=== PATIENT | female | born 1950 | race Caucasian/White ===

== ENCOUNTER 2016-06-14 16:30 | Emergency (ER) | payer MEDICARE ==
[2016-06-14] MEDS ORDERED: Ondansetron 4 MG/2 ML SDV IVPUSH ONE (17:05)
[2016-06-14] MEDS ORDERED: Sodium Chloride 0.9% 1,000 ML IV ONE (17:05)
--- NOTE | 2016-06-14 17:05 | EDM.PDOC ---
ED HPI GENERAL MEDICAL PROBLEM - General Chief Complaint: Gastrointestinal Problem Stated Complaint: PT HAS SORES IN MOUTH, DIARRHEA Time Seen by Provider: 06/14/16 17:00 Source of Information: Reports: Patient History Limitations: Reports: No limitations - History of Present Illness INITIAL COMMENTS - FREE TEXT/NARRATIVE: History of present illness: [65-year-old female presenting with complaints of oral sores, nausea, anorexia, as well as now having lesions present on her arms.] Review of systems: As per history of present illness and below otherwise all systems reviewed and negative. Past medical history: As per history of present illness and as reviewed below otherwise noncontributory. Surgical history: As per history of present illness and as reviewed below otherwise noncontributory. Social history: No reported history of drug or alcohol abuse. Family history: As per history of present illness and as reviewed below otherwise noncontributory. Physical exam: HEENT: Atraumatic, normocephalic, pupils reactive, negative for conjunctival pallor or scleral icterus, mucous membranes moist, throat clear, sores and erythema along pickle cavity, neck supple, nontender, trachea midline. Lungs: Clear to auscultation, breath sounds equal bilaterally, chest nontender. Heart: S1S2, regular, negative for clicks, rubs, or JVD. Abdomen: Soft, nondistended, nontender. Negative for masses or hepatosplenomegaly. Negative for costovertebral tenderness. Pelvis: Stable nontender. Genitourinary: Deferred. Rectal: Deferred. Extremities: Atraumatic, negative for cords or calf pain. Neurovascular unremarkable. Neuro: Awake, alert, oriented. Cranial nerves II through XII unremarkable. Cerebellum unremarkable. Motor and sensory unremarkable throughout. Exam nonfocal. Skin: Patient has a very putty, pale colored complexion Diagnostics: [CBC, CMP, CT] Therapeutics: [IV fluid, Zofran] Impression: [Stomatitis, malnutrition] Plan: [Magic mouthwash followup with primary care provider] Definitive disposition and diagnosis as appropriate pending reevaluation and review of above. Generalized Pain Score (Numeric/FACES): 7 - Related Data Allergies Allergy/AdvReac Type Severity Reaction Status Date / Time divalproex sodium Allergy Shaking Verified 06/14/16 16:35 [From Depakote] erythromycin base Allergy Rash Verified 06/14/16 16:35 latex Allergy Blisters Verified 06/14/16 16:35 paroxetine HCl [From Paxil] Allergy Seizure Verified 06/14/16 16:35 Penicillins Allergy Rash Verified 06/14/16 16:35 tolterodine tartrate Allergy Facial Verified 06/14/16 16:35 [From Detrol] Swelling contrast dye Allergy Seizure Uncoded 06/14/16 16:35 Home Meds: Home Meds Alendronate Sodium [Alendronate] 1 tab PO DAILY 04/24/15 [History] FLUoxetine HCl [Fluoxetine HCl] 1 tab PO PCDINNER 04/24/15 [History] [place] Carbonate [Eskalith CR] 1 tab PO PCDINNER 04/24/15 [History] Montelukast [Singulair] 1 tab PO DAILY 04/24/15 [History] Ondansetron [Zofran ODT] 1 tab PO ASDIRECTED PRN 04/24/15 [History] Propranolol [Inderal] 1 tab PO BID 04/24/15 [History] buPROPion [Wellbutrin XL] 1 tab PO DAILY 04/24/15 [History] lamoTRIgine [Lamotrigine] 1 tab PO BEDTIME 04/24/15 [History] risperiDONE [RisperiDAL] 1 tab PO BEDTIME 04/24/15 [History] traZODone 1 tab PO BEDTIME 04/24/15 [History] Diphenhyd/Lidocaine/Nystatin [Magic Mouthwash] 10 ml PO QID #2 bottle 06/14/16 [ Rx] Past Medical History - Past Health History Medical/Surgical History: Denies Medical/Surgical History HEENT History: Reports: Hard of hearing, Impaired vision Other HEENT History: Hard of hearing hear best on Right side Cardiovascular History: Reports: Hypertension Respiratory History: Reports: None Gastrointestinal History: Reports: Gastritis, GERD Other Gastrointestinal History: History of bleeding ulcer, current positive H- pylori test, Heartburn, Epigastric pain Genitourinary History: Reports: None Musculoskeletal History: Reports: None Neurological History: Reports: Migraines Psychiatric History: Reports: Anxiety, Bipolar, Depression Endocrine/Metabolic History: Reports: None Dermatologic History: Reports: None - Infectious Disease History Infectious Disease History: Reports: Chicken pox, Measles - Past Surgical History GI Surgical History: Reports: Bariatric procedure Female Surgical History: Reports: Hysterectomy Musculoskeletal Surgical History: Reports: None Social & Family History - Tobacco Use Smoking Status *Q: Never Smoker Second Hand Smoke Exposure: No - Caffeine Use Caffeine Use: Reports: Soda - Alcohol Use Days Per Week of Alcohol Use: 0 - Recreational Drug Use Recreational Drug Use: No Drug Use in Last 12 Months: No ED ROS GENERAL - Review of Systems Review Of Systems: See Below (See history of present illness) ED EXAM, GENERAL - Physical Exam Exam: See Below (See history of present illness) Course - Vital Signs Last Recorded V/S: Last Vital Signs Temp 36.6 C 06/14/16 19:00 Pulse 66 06/14/16 19:00 Resp 18 06/14/16 19:00 BP 199/94 H 06/14/16 19:00 Pulse Ox 100 06/14/16 19:00 - Orders/Labs/Meds Orders: Active Orders 24 hr Category Date Time Status Abdomen Pelvis wo Cont [CT] Stat Exams 06/14/16 18:08 Taken Labs: Laboratory Tests 06/14/16 06/14/16 Range/Units 17:14 17:14 WBC 5.07 (4.0-11.0) K/uL RBC 4.16 L (4.30-5.90) M/uL Hgb 11.8 L (12.0-16.0) g/dL Hct 36.2 (36.0-46.0) % MCV 87.0 (80.0-98.0) fL MCH 28.4 (27.0-32.0) pg MCHC 32.6 (31.0-37.0) g/dL RDW Std Deviation 40.8 (28.0-62.0) fl RDW Coeff of Steven 13 (11.0-15.0) % Plt Count 204 (150-400) K/uL MPV 10.70 (7.40-12.00) fL Neut % (Auto) 51.4 (48.0-80.0) % Lymph % (Auto) 35.5 (16.0-40.0) % Motley % (Auto) 10.1 (0.0-15.0) % Eos % (Auto) 2.4 (0.0-7.0) % Baso % (Auto) 0.6 (0.0-1.5) % Neut # 2.6 (1.4-5.7) K/uL Lymph # 1.8 (0.6-2.4) K/uL Motley # 0.5 (0.0-0.8) K/uL Eos # 0.1 (0.0-0.7) K/uL Baso # 0.0 (0.0-0.1) K/uL Nucleated RBC % 0.0 /100WBC Nucleated RBCs # 0 K/uL Sodium 142 (136-146) mmol/L Potassium 3.2 L (3.5-5.1) mmol/L Chloride 111 H (98-110) mmol/L Carbon Dioxide 22 (21-31) mmol/L BUN 10 (6.0-23.0) mg/dL Creatinine 0.8 (0.6-1.5) mg/dL Est Cr Clr Drug Dosing 58.77 mL/min Estimated GFR (MDRD) > 60.0 ml/min Glucose 74 (60-110) mg/dL Calcium 9.1 (8.8-10.8) mg/dL Total Bilirubin 0.2 (0.1-1.5) mg/dL AST 18 (5-40) IU/L ALT 22 (8-54) IU/L Alkaline Phosphatase 93 (40-150) Total Protein 5.6 L (6.0-8.0) g/dL Albumin 3.2 L (3.4-4.8) g/dL Globulin 2.4 (2.0-3.5) g/dL Albumin/Globulin Ratio 1.3 (1.3-2.8) Meds: Medications Discontinued Medications Generic Name Dose Route Start Last Admin Trade Name Dominguez PRN Reason Stop Dose Admin Sodium Chloride 1,000 mls @ 999 mls/hr 06/14/16 17:05 06/14/16 17:25 Normal Saline IV 06/14/16 18:05 999 mls/hr STAT ONE Administration Iopamidol 100 ml 06/14/16 18:18 06/14/16 18:20 Isovue Multipack-370 (76%) IVPUSH 06/14/16 18:19 100 ml ONETIME STA Administration Ondansetron HCl 8 mg 06/14/16 17:05 06/14/16 17:27 Zofran IVPUSH 06/14/16 17:06 8 mg ONETIME ONE Administration Departure - Departure Time of Disposition: 19:45 Disposition: Home, Self-Care 01 Condition: good Clinical Impression: Stomatitis Forms: ED Department Discharge Additional Instructions: The following information is given to patients seen in the emergency department who are being discharged to home. This information is to outline your options for follow-up care. We provide all patients seen in our emergency department with a follow-up referral. The need for follow-up, as well as the timing and circumstances, are variable depending upon the specifics of your emergency department visit. If you don't have a primary care physician on staff, we will provide you with a referral. We always advise you to contact your personal physician following an emergency department visit to inform them of the circumstance of the visit and for follow-up with them and/or the need for any referrals to a consulting specialist. The emergency department will also refer you to a specialist when appropriate. This referral assures that you have the opportunity for follow-up care with a specialist. All of these measure are taken in an effort to provide you with optimal care, which includes your follow-up. Under all circumstances we always encourage you to contact your private physician who remains a resource for coordinating your care. When calling for follow-up care, please make the office aware that this follow-up is from your recent emergency room visit. If for any reason you are refused follow-up, please contact the [facility] Emergency Department at and asked to speak to the emergency department charge nurse. Take medication as directed Followup with PCP in one to 2 days.. discussed various findings of the ER with a goal of addressing chronic low-grade malnutrition as well as issues related to that. Return to ED as needed as discussed - My Orders Last 24 Hours: My Active Orders 06/14/16 18:08 Abdomen Pelvis wo Cont [CT] Stat - Assessment/Plan Last 24 Hours: My Active Orders 06/14/16 18:08 Abdomen Pelvis wo Cont [CT] Stat
[2016-06-14 17:48] LABS: CHLORIDE,CL 111 mmol/L (98-110); SODIUM,NA 142 mmol/L (136-146)
[2016-06-14] MEDS ORDERED: Iopamidol 755 MG/ML 500 ML Multipack Bottle IVPUSH STA (18:18)
[2016-06-14 20:05] VITALS: BP 186/86
--- NOTE | 2016-06-15 15:19 | CT ---
EXAM DATE: 06/14/16 PATIENT'S AGE: 65 EXAM DATE: 06/14/16 PATIENT'S AGE: 65 Patient: BJ MCCAIN Facility: [place], [place] Site . Site : 1950 Study: CT Abdomen/Pelvis [id number]/20/2017 6:54:05 PM Ordering Physician: Doctor Munson Final Report: INDICATION: Pain TECHNIQUE: CT abdomen and pelvis without contrast. COMPARISON: None FINDINGS: Lower chest: Unremarkable. Liver: Unremarkable. Spleen: Unremarkable. Pancreas: Unremarkable. Gallbladder and bile ducts: Status post cholecystectomy. Adrenal glands: Unremarkable. Kidneys: Nonobstructive 0.4 cm right renal stone. GI tract: Postoperative changes of gastric bypass procedure. Appendix is normal. Vascular structures: Unremarkable. Lymph nodes: Unremarkable. Miscellaneous: Small amount of free fluid in the abdomen. Pelvic Organs: Status post hysterectomy. Bones: Remote T12 and L2 compression fractures. Multilevel degenerative changes. IMPRESSION: 1. Small amount of peritoneal free fluid of unknown etiology. 2. Nonobstructive right renal stone. 3. Status post cholecystectomy, hysterectomy, and gastric bypass procedure. Dictated by Amina Dietrich MD @ Jun 14 2016 7:25PM (Electronic Signature) Report Signed by Proxy and Original Signed Document filed in the Medical Record. [facility]
== END 2016-06-14 20:00 | disposition home or self-care (01) ==
LOC: MW.ED 16:30
DX: K12.1 Other forms of stomatitis (principal); E46 Unspecified protein-calorie malnutrition; Z88.8 Allergy status to other drugs, medicaments and biological substances; Z88.0 Allergy status to penicillin; Z88.1 Allergy status to other antibiotic agents; Z91.040 Latex allergy status; Z79.899 Other long term (current) drug therapy; Z90.710 Acquired absence of both cervix and uterus
CPT/HCPCS: 36415; 74176; 80053; 85025; 96361; 96374; 99284; J2405; J7040; Q9967

== ENCOUNTER 2016-11-30 09:20 | Day surgery (SDC) | payer MEDICARE, MEDICAID ==
[~2016-11-30 09:20] MED LIST: Lactated Ringers 1,000 ML IV SCH; Midazolam 1 MG/ML 2 ML SDV ONE; Propofol 200 MG/20 ML SDV ONE; fentaNYL 100 MCG/2 ML SDV ONE
--- NOTE | 2016-11-30 10:17 | PCM.PREANE ---
Preanesthetic Assessment - Anesthesia/Transfusion/Family Hx Anesthesia History: Prior Anesthesia Without Reaction Other Type of Anesthesia Reaction Comment: Some motion sickness, denies any known problem in past Family History of Anesthesia Reaction: No Transfusion History: Prior Transfusion Without Reaction - Review of Systems General: No Symptoms Pulmonary: No Symptoms - Physical Assessment NPO Status Date: 11/29/16 O2 Sat by Pulse Oximetry: 100 Respiratory Rate: 16 Vital Signs: Last Vital Signs Temp 36.2 C 11/30/16 09:49 Pulse 66 11/30/16 09:49 Resp 16 11/30/16 09:49 BP 151/94 H 11/30/16 09:49 Pulse Ox 100 11/30/16 09:49 Height: 1.63 m Weight: 61.689 kg ASA Class: 2 Mental Status: Alert & Oriented x3 Dentition: Reports: Dentures ROM/Head Extension: Full Lungs: Clear to Auscultation, Normal Respiratory Effort Cardiovascular: Regular Rate, Regular Rhythm - Allergies Allergies/Adverse Reactions: Allergies Allergy/AdvReac Type Severity Reaction Status Date / Time divalproex sodium Allergy Shaking Verified 11/23/16 11:34 [From Depakote] erythromycin base Allergy Rash Verified 06/14/16 16:35 Iodine and Iodide Containing Allergy Seizure Verified 11/23/16 11:34 Produc latex Allergy Blisters Verified 06/14/16 16:35 paroxetine HCl [From Paxil] Allergy Seizure Verified 06/14/16 16:35 Penicillins Allergy Anaphylactic Verified 11/23/16 11:34 Shock Sulfa (Sulfonamide Allergy Rash Verified 11/23/16 11:34 Antibiotics) tolterodine tartrate Allergy Facial Verified 06/14/16 16:35 [From Detrol] Swelling - Anesthesia Plan Pre-Op Medication Ordered: None - Acknowledgements Anesthesia Type Planned: MAC Pt an Appropriate Candidate for the Planned Anesthesia: Yes Alternatives and Risks of Anesthesia Discussed w Pt/Guardian: Yes Pt/Guardian Understands and Agrees with Anesthesia Plan: Yes PreAnesthesia Questionnaire - Past Health History Medical/Surgical History: Denies Medical/Surgical History HEENT History: Reports: Allergic Rhinitis, Cataract, Hard of Hearing Other HEENT History: wears glasses, has upper dentures Cardiovascular History: Reports: Hypertension Respiratory History: Reports: None Gastrointestinal History: Reports: Colon Polyp, GERD, PUD Other Gastrointestinal History: History of bleeding ulcer, current positive H- pylori test, Heartburn, Epigastric pain Genitourinary History: Reports: None Musculoskeletal History: Reports: None Neurological History: Reports: Headaches, Chronic Psychiatric History: Reports: Anxiety, Bipolar, Depression Endocrine/Metabolic History: Reports: None Hematologic History: Reports: Blood Transfusion(s) Dermatologic History: Reports: None - Infectious Disease History Infectious Disease History: Reports: Chicken Pox, Measles - Past Surgical History GI Surgical History: Reports: Bariatric Procedure, Cholecystectomy, Colonoscopy , EGD Female Surgical History: Reports: Hysterectomy Musculoskeletal Surgical History: Reports: None - SUBSTANCE USE Smoking Status *Q: Never Smoker Tobacco Use Within Last Twelve Months:  Second Hand Smoke Exposure: No Days Per Week of Alcohol Use: 0 Recreational Drug Use History: No - HOME MEDS Home Medications: Home Meds Calcium Carbonate [Calcium] 600 mg PO DAILY 11/23/16 [History] Cyanocobalamin (Vitamin B-12) [B-12] 1,000 mg PO DAILY 11/23/16 [History] Multivitamins [Tab-A-Murali] 1 tab PO DAILY 11/23/16 [History] Omeprazole 40 mg PO DAILY 11/23/16 [History] Sucralfate 1 gm PO QID 11/23/16 [History] Verapamil [Calan] PO DAILY 11/23/16 [History] - CURRENT (IN HOUSE) MEDS Current Meds: Current Medications Lactated Ringer's (Ringers, Lactated) 1,000 mls @ 125 mls/hr IV ASDIRECTED [facility] Last Admin: 11/30/16 09:50 Dose: 125 mls/hr Discontinued Medications Fentanyl (Sublimaze) Confirm Administered Dose 100 mcg .ROUTE .STK-MED ONE Stop: 11/30/16 07:15 Midazolam HCl (Versed 1 Mg/Ml) Confirm Administered Dose 2 mg .ROUTE .STK-MED ONE Stop: 11/30/16 07:14 Propofol (Diprivan 20 Ml) Confirm Administered Dose 200 mg .ROUTE .STK-MED ONE Stop: 11/30/16 07:14
[2016-11-30] MEDS ORDERED: Propofol 200 MG/20 ML SDV ONE (10:42)
--- NOTE | 2016-11-30 11:15 | PCM.OPNOTE ---
- General Post-Op/Procedure Note Date of Surgery/Procedure: 11/30/16 Operative Procedure(s): egd w bx. colonoscopy Findings: see dict [id number] Pre Op Diagnosis: abd pain and BRBPR Post-Op Diagnosis: gastritis and hemorrhoid Anesthesia Technique: Moderate Sedation Primary Surgeon: Abhijeet Johnson Pathology: egd bx Complications: None Condition: Good
[2016-11-30 11:25] VITALS: BP 136/82
--- NOTE | 2016-11-30 11:36 | PCM.POSTAN ---
POST ANESTHESIA ASSESSMENT - MENTAL STATUS Mental Status: Alert, Oriented - RESPIRATORY Respiratory Status: Respiratory Rate WNL, Airway Patent, O2 Saturation Stable - CARDIOVASCULAR CV Status: Pulse Rate WNL, Blood Pressure Stable - GASTROINTESTINAL GI Status: No Symptoms - POST OP HYDRATION Hydration Status: Adequate & Stable
--- NOTE | 2016-11-30 11:37 | PCM48HPAN ---
Post Anesthesia Note - EVALUATION WITHIN 48HRS OF ANESTHETIC Vital Signs in Normal Range: Yes Patient Participated in Evaluation: Yes Respiratory Function Stable: Yes Airway Patent: Yes Cardiovascular Function Stable: Yes Hydration Status Stable: Yes Pain Control Satisfactory: Yes Nausea and Vomiting Control Satisfactory: Yes Mental Status Recovered: Yes
--- NOTE | 2016-11-30 15:11 | OR ---
SURGEON: Abhijeet Johnson MD DATE OF PROCEDURE: 11/30/2016 PREOPERATIVE DIAGNOSIS: Bright red blood per rectum. POSTOPERATIVE DIAGNOSES: Gastritis and internal hemorrhoids. PROCEDURE PERFORMED: 1. Esophagogastroduodenoscopy with biopsy. 2. Colonoscopy. EGD FINDINGS: 1. 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 The patient is soundly snoring. 2. Proximal esophagus and oropharynx is totally grossly normal in appearance. No blood, no inflammation, no stricture. Distal esophagus at GE junction at 40 shows very mild minimum salmon color change such as not much of acid reflux. The patient has stomach bypass. The gastric pouch is small and is wide open. No stricture, no blood, no ulceration. Two shell have been exposed but is not inflamed and again the gastrojej is totally wide open, no stricture and no ulcer, no blood observed. A little bit of the stomach pouch, very mild. Biopsy done at the stomach pouch and sucked out the air while scope pulling out. Again, no blood, no ulcer and the gastrojej anastomosis was wide open. DESCRIPTION OF PROCEDURE: The patient was taken to the endoscopy room, placed in a supine position. Upon induction of mild general sedation, a well lubricated EGD scope was gently introduced through the mouth and above the tongue into the oropharynx and go down to the esophagus with no difficulty. There was no inflammation, stricture, or ulceration observed. GE junction at 40 shows very little to salmon color change suggests there was no acid reflux. Part of the GE junction, there was a stomach pouch. The patient has gastric bypass and over there, there were two shell exposed, no inflammation, no blood observed. Stomach pouch is small, but the gastrojej anastomosis is wide open. No stricture, no blood, no ulceration observed and stomach pouch is a little bit inflamed and very mild. Biopsy done and sucked out the air while scope pulling out. COLONOSCOPY FINDIN. 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 The patient is soundly snoring. 2. Bowel prep is average to good. Very little liquid stool. 3. Colon is rather straight forward. Cecum indicated by ileocecal fold, one- to-one indentation, light immittance is not observed and appendix orifice observed. Mucosa examined. Upon scope pulling out, the patient does not have mass, growth, inflammation, stricture, ulceration, diverticulosis, AV malformation, polyp, or inflammation, none of those. The patient has mild internal hemorrhoids. No external hemorrhoids. The patient would benefit from repeat colonoscopy in 10 years from today. DESCRIPTION OF PROCEDURE: The patient was taken to the endoscopy room. A time out was called, patient identified, and procedure identified. Diprivan was then administrated. Patient went from awake to sleep, hearing doctor talking or door closing is normal. Perineum inspection and digital examination were then performed. A well- lubricated colonoscope was gently inserted through the rectum, advanced past the rectosigmoid junction, the descending colon, splenic flexure, transverse colon, hepatic flexure, ascending colon, arrived to the cecum. Cecum was identified as dictated in the finding. Then the scope was carefully withdrawn while attention was paid to the mucosal surface for any abnormality. Air will be sucked out during the scope withdrawal. At the rectum, retroflexed to examine any rectal diseases, fistula or hemorrhoids. Patient tolerated procedure well. There were no intraoperative complications, and Dr. Johnson was present throughout the whole procedure. FADUMO / JONNIE /[id number]
== END 2016-11-30 11:54 | disposition home or self-care (01) ==
LOC: MW.SDS 09:20
PROVIDERS: ATTEND Surgery
DX: K64.8 Other hemorrhoids (principal); F41.9 Anxiety disorder, unspecified; F31.9 Bipolar disorder, unspecified; H26.9 Unspecified cataract; K21.9 Gastro-esophageal reflux disease without esophagitis; I10 Essential (primary) hypertension; G43.909 Migraine, unspecified, not intractable, without status migrainosus; M81.0 Age-related osteoporosis without current pathological fracture; Z86.010 Personal history of colon polyps; Z98.84 Bariatric surgery status; Z98.0 Intestinal bypass and anastomosis status; Z90.710 Acquired absence of both cervix and uterus; Z98.890 Other specified postprocedural states; Z88.0 Allergy status to penicillin; Z88.2 Allergy status to sulfonamides; Z88.8 Allergy status to other drugs, medicaments and biological substances; Z91.040 Latex allergy status; Z91.041 Radiographic dye allergy status; Z79.899 Other long term (current) drug therapy
CPT/HCPCS: 43239; 45378; 88305; 88312; J2250; J3010; J7120; 00740; J2704

== ENCOUNTER 2017-05-04 11:29 | Emergency (ER) | payer MEDICAID, MEDICARE ==
--- NOTE | 2017-05-04 11:40 | EDM.PDOC ---
ED HPI GENERAL MEDICAL PROBLEM - General Stated Complaint: LEFT ARM PAIN Time Seen by Provider: 05/04/17 11:30 Source of Information: Reports: Patient History Limitations: Reports: No Limitations - History of Present Illness INITIAL COMMENTS - FREE TEXT/NARRATIVE: History of present illness: []Patient slipped on ice 10 days ago and suffered left upper extremity wrist sprain diagnosed by an occupational health clinic. She went for follow-up and continued to have elbow pain and was diagnosed with a fracture. She was not put in a splint or treated. Patient was told to follow-up with her doctor in 2 weeks , was unable to get in so she came here. Review of systems: As per history of present illness and below otherwise all systems reviewed and negative. Past medical history: As per history of present illness and as reviewed below otherwise noncontributory. Surgical history: As per history of present illness and as reviewed below otherwise noncontributory. Social history: No reported history of drug or alcohol abuse. Family history: As per history of present illness and as reviewed below otherwise noncontributory. Physical exam: General: Well developed, well nourished in NAD HEENT: Atraumatic, normocephalic, pupils reactive, negative for conjunctival pallor or scleral icterus, mucous membranes moist, throat clear, neck supple, nontender, trachea midline. Lungs: Clear to auscultation, breath sounds equal bilaterally, chest nontender. Heart: S1S2, regular, negative for clicks, rubs, or JVD. Abdomen: Soft, nondistended, nontender. Negative for masses or hepatosplenomegaly. Negative for costovertebral tenderness. Pelvis: Stable nontender. Genitourinary: Deferred. Rectal: Deferred. Extremities: Atraumatic, negative for cords or calf pain. Neurovascular unremarkable. Neuro: Awake, alert, oriented. Cranial nerves II through XII unremarkable. Cerebellum unremarkable. Motor and sensory unremarkable throughout. Exam nonfocal. Diagnostics: []X-rays of the elbow and scapular negative for fracture as reviewed by [employer]: []Given for pain in the ED Impression: []Elbow contusion Plan: []Arm sling, ice to elbow, tramadol for pain follow-up with Dr. Valladares Definitive disposition and diagnosis as appropriate pending reevaluation and review of above. Left Elbow Pain Score (Numeric/FACES): 8 - Related Data Allergies Allergy/AdvReac Type Severity Reaction Status Date / Time divalproex sodium Allergy Shaking Verified 05/04/17 11:47 [From Depakote] erythromycin base Allergy Rash Verified 05/04/17 11:47 Iodine and Iodide Containing Allergy Seizure Verified 05/04/17 11:47 Produc latex Allergy Blisters Verified 05/04/17 11:47 paroxetine HCl [From Paxil] Allergy Seizure Verified 05/04/17 11:47 Penicillins Allergy Anaphylactic Verified 05/04/17 11:47 Shock Sulfa (Sulfonamide Allergy Rash Verified 05/04/17 11:47 Antibiotics) tolterodine tartrate Allergy Facial Verified 05/04/17 11:47 [From Detrol] Swelling Home Meds: Home Meds Calcium Carbonate [Calcium] 600 mg PO DAILY 11/23/16 [History] Cyanocobalamin (Vitamin B-12) [B-12] 1,000 mg PO DAILY 11/23/16 [History] Multivitamins [Tab-A-Murali] 1 tab PO DAILY 11/23/16 [History] Omeprazole 40 mg PO DAILY 11/23/16 [History] Sucralfate 1 gm PO QID 11/23/16 [History] Verapamil [Calan] PO DAILY 11/23/16 [History] Potassium 05/04/17 [History] traMADol HCl [Tramadol HCl] 50 mg PO Q6H PRN #12 tablet 05/04/17 [Rx] Past Medical History - Past Health History Medical/Surgical History: Denies Medical/Surgical History HEENT History: Reports: Allergic Rhinitis, Cataract, Hard of Hearing Other HEENT History: wears glasses, has upper dentures Cardiovascular History: Reports: Hypertension Respiratory History: Reports: None Gastrointestinal History: Reports: Colon Polyp, GERD, PUD Other Gastrointestinal History: History of bleeding ulcer, current positive H- pylori test, Heartburn, Epigastric pain Genitourinary History: Reports: None Musculoskeletal History: Reports: None Neurological History: Reports: Headaches, Chronic Psychiatric History: Reports: Anxiety, Bipolar, Depression Endocrine/Metabolic History: Reports: None Hematologic History: Reports: Blood Transfusion(s) Dermatologic History: Reports: None - Infectious Disease History Infectious Disease History: Reports: Chicken Pox, Measles - Past Surgical History GI Surgical History: Reports: Bariatric Procedure, Cholecystectomy, Colonoscopy , EGD Female Surgical History: Reports: Hysterectomy Musculoskeletal Surgical History: Reports: None Social & Family History - Tobacco Use Smoking Status *Q: Never Smoker Second Hand Smoke Exposure: No - Caffeine Use Caffeine Use: Reports: Soda - Alcohol Use Days Per Week of Alcohol Use: 0 - Recreational Drug Use Recreational Drug Use: No Drug Use in Last 12 Months: No Review of Systems - Review of Systems Review Of Systems: See Below (See history of present illness) ED EXAM, GENERAL - Physical Exam Exam: See Below (See history of present illness) Course - Vital Signs Last Recorded V/S: Last Vital Signs Temp 98.1 F 05/04/17 11:42 Pulse 81 05/04/17 11:42 Resp 20 05/04/17 11:42 BP 165/99 H 05/04/17 11:42 Pulse Ox 99 05/04/17 11:42 - Orders/Labs/Meds Orders: Active Orders 24 hr Category Date Time Status Elbow Min 3V Lt [CR] Stat Exams 05/04/17 11:45 Taken Scapula Lt [CR] Stat Exams 05/04/17 11:45 Taken Meds: Medications Discontinued Medications Generic Name Dose Route Start Last Admin Trade Name Freq PRN Reason Stop Dose Admin Ketorolac Tromethamine 30 mg 05/04/17 11:46 05/04/17 11:55 Toradol IM 05/04/17 11:47 30 mg ONETIME ONE Administration Departure - Departure Time of Disposition: 13:06 Disposition: Home, Self-Care 01 Condition: Good Clinical Impression: Contusion of elbow, left Qualifiers: Encounter type: sequela Qualified Code(s): S50.02XS - Contusion of left elbow, sequela - Discharge Information Prescriptions: traMADol HCl [Tramadol HCl] 50 mg PO Q6H PRN #12 tablet PRN Reason: Pain Referrals: Gwendolyn Parra DO [Primary Care Provider] - Maricruz Valladares MD [Physician] - (Next available appointment) Additional Instructions: The following information is given to patients seen in the emergency department who are being discharged to home. This information is to outline your options for follow-up care. We provide all patients seen in our emergency department with a follow-up referral. The need for follow-up, as well as the timing and circumstances, are variable depending upon the specifics of your emergency department visit. If you don't have a primary care physician on staff, we will provide you with a referral. We always advise you to contact your personal physician following an emergency department visit to inform them of the circumstance of the visit and for follow-up with them and/or the need for any referrals to a consulting specialist. The emergency department will also refer you to a specialist when appropriate. This referral assures that you have the opportunity for follow-up care with a specialist. All of these measure are taken in an effort to provide you with optimal care, which includes your follow-up. Under all circumstances we always encourage you to contact your private physician who remains a resource for coordinating your care. When calling for follow-up care, please make the office aware that this follow-up is from your recent emergency room visit. If for any reason you are refused follow-up, please contact the [facility] Emergency Department at and asked to speak to the emergency department charge nurse. Where arm sling, Motrin and/or tramadol for pain follow-up with orthopedics as needed return if symptoms worsen or change [facility] Professional Building [address] [place] [address], [address] [place] [address] - My Orders Last 24 Hours: My Active Orders 05/04/17 11:45 Elbow Min 3V Lt [CR] Stat Scapula Lt [CR] Stat - Assessment/Plan Last 24 Hours: My Active Orders 05/04/17 11:45 Elbow Min 3V Lt [CR] Stat Scapula Lt [CR] Stat
[2017-05-04] MEDS ORDERED: Ketorolac 30 MG/ML SDV IM ONE (11:46)
[2017-05-04 13:22] VITALS: BP 164/91
--- NOTE | 2017-05-04 14:25 | CR ---
EXAM DATE: 05/04/17 PATIENT'S AGE: 66 Patient: BJ MCCAIN Facility: [place], [place] Site . Site : 1950 Study: XRay Extremity Left [id number]/7/[id number] 12:40:46 PM Ordering Physician: Gideon Deluna Final Report: INDICATION: FELL 1 1/2 WEEKS AGO TECHNIQUE: Left elbow 3 views. COMPARISON: None. FINDINGS: Bones: Alignment is normal. No fractures or bone lesions. Joint spaces: Unremarkable. Soft tissues: Unremarkable. IMPRESSION: Unremarkable left elbow. Dictated by: Jose Lucero MD @ 05/04/2017 12:48:54 (Electronic Signature) Report Signed by Proxy. [facility] CENTERMegan
--- NOTE | 2017-05-04 14:26 | CR ---
EXAM DATE: 05/04/17 PATIENT'S AGE: 66 Patient: BJ MCCAIN Facility: [place], [place] Site . Site : 1950 Study: XRay Extremity Left [id number]/7/2018 12:41:32 PM Ordering Physician: Gideon Deluna Final Report: INDICATION: Shoulder pain to touch, history of fall 1/2 weeks prior TECHNIQUE: Two views left scapula COMPARISON: None FINDINGS: Bones: Alignment is normal. No fractures or bone lesions. Joint spaces: Unremarkable. Soft tissues: Unremarkable. IMPRESSION: Negative. Dictated by Jose Lucero MD @ 05/04/2017 12:47:05 PM Dictated by: Jose Lucero MD @ 05/04/2017 12:47:18 (Electronic Signature) Report Signed by Proxy. MTDMegan
== END 2017-05-04 13:14 | disposition home or self-care (01) ==
LOC: MW.ED 11:29
DX: S50.02XA Contusion of left elbow, initial encounter (principal); I10 Essential (primary) hypertension; Z88.1 Allergy status to other antibiotic agents; Z88.8 Allergy status to other drugs, medicaments and biological substances; Z91.040 Latex allergy status; Z88.0 Allergy status to penicillin; Z88.2 Allergy status to sulfonamides; Z79.899 Other long term (current) drug therapy; W00.9XXA Unspecified fall due to ice and snow, initial encounter
CPT/HCPCS: 73010; 73080; 96372; 99283; J1885

== ENCOUNTER 2017-11-22 13:49 | Observation (INO) | payer MEDICARE, OTHER ==
[2017-11-22] MEDS ORDERED: Aspirin 81 MG Tab.Chew PO ONE (14:01)
[2017-11-22] MEDS ORDERED: Sodium Chloride 0.9% 10 ML Syringe FLUSH PRN ×2 (14:01→18:23)
[2017-11-22] MEDS ORDERED: Sodium Chloride 0.9% 2.5 ML Syringe FLUSH PRN ×2 (14:01→18:23)
[2017-11-22] MEDS ORDERED: Nitroglycerin 2% Oint 1 GM UD Packet TOP ONE (14:01)
--- NOTE | 2017-11-22 14:08 | EDM.PDOC ---
ED HPI GENERAL MEDICAL PROBLEM - General Chief Complaint: Respiratory Problem Stated Complaint: SOB Time Seen by Provider: 11/22/17 13:54 - History of Present Illness INITIAL COMMENTS - FREE TEXT/NARRATIVE: HISTORY AND PHYSICAL: History of present illness: Patient is a 66-year-old female who follows at [facility] and has a history of hypertension gastric bypass and an episode of congestion heart failure 10 years ago which she has not had problems with since as well as a touch of COPD/ air way disease and presents with 2-3 weeks of progressive shortness of breath and lower extremity edema. The patient presented to [facility] and was sent here by her provider for these symptoms. She says that the symptoms were gradual in onset but she had a trip planned to [place] on and left 10 days ago for that trip and said she was miserable with the symptoms. She said they got worse while she was in her sister's home and traveling and felt that the air quality also worsened her symptoms. She has been eating and drinking without difficulty she has no abdominal pain no vomiting and no diarrhea. She says over the course of 2-3 weeks she has had this diffuse chest tightness which she is vague about describing and feels it is also inhibiting her taking a deep breath. She has not had a fever cough or runny nose or other upper respiratory infections and has been urinating normally. She has no back pain and no leg discrepancy in size but she has noticed the edema of her legs. She says that she feels like she is full of water. She says that 10 years ago she was treated for congestive heart failure and she is not sure why she got it. She also has a history of a gastric bypass. When her provider Dr. Parra called the provider was unaware of any history of CHF. Currently not on any medications for that or preventative. Patient states she has not seen a supervisor communications and signals or had any echocardiogram or EKGs at least in the last 10 years. The patient tells me that the symptoms got worse since she has returned home 2 days ago. The patient states that she has not had any black or bloody stools and no blood in her urine as well as no bleeding gums Review of systems: As per history of present illness and below otherwise all systems reviewed and negative. Past medical history: As per history of present illness and as reviewed below otherwise noncontributory. Surgical history: As per history of present illness and as reviewed below otherwise noncontributory. Social history: No reported history of drug or alcohol abuse. Family history: As per history of present illness and as reviewed below otherwise noncontributory. Physical exam: General: Well-developed well-nourished female who looks somewhat pale and is slightly breathless but weeks in full sentences and vital signs are noted by me. Patient's initial O2 sat was 87% on room air but with 2 L HEENT: Atraumatic, normocephalic, there is slight conjunctival pallor but no scleral icterus, mucous membranes moist, throat clear, neck supple, nontender, trachea midline. Lungs: Clear to auscultation with some diminished breath sounds in the bases but no rales or wheezing or stridor, breath sounds equal bilaterally, chest nontender. Heart: S1S2, regular rate and rhythm no overt murmurs Abdomen: Soft, nondistended, nontender. Negative for masses or hepatosplenomegaly. NABS Pelvis: Stable nontender. Genitourinary: Deferred. Rectal: Deferred. Extremities: Atraumatic, negative for cords or calf pain. Neurovascular unremarkable. There is trace to 1+ pedal edema which is soft and laterally but there is no leg discrepancy or specific calf tenderness. Neuro: Awake, alert, oriented. Cranial nerves II through XII unremarkable. Cerebellum unremarkable. Motor and sensory unremarkable throughout. Exam nonfocal. Diagnostics: EKG chest x-ray CBC CMP d-dimer INR troponin UA BNP bilateral venous Dopplers as the patient has an allergy to IV dye VQ scan Therapeutics: IV O2 monitor aspirin Nitropaste I discussed testing results with the patient and wanted to do a CTA of her chest but she has a severe allergy to IV dye. We will perform bilateral lower extremity Dopplers and proceed from that point. I will also investigate whether or not we can do a nuclear medicine VQ scan. We are able to do a VQ scan which will form here in the ED 1618: Case discussed with the hospitalist Dr Marcos who agrees with admission. I will recontact her if any of the testing I am performing now is positive. She feels the pulmonary hypertension can cause this hypoxia without bumping the BNP. We will do observation admission The patient and spouse at bedside are aware that VQ scan and Dopplers are negative. We will proceed with admission for further care and observation and the patient is comfortable with that Impression: Dyspnea with hypoxia Definitive disposition and diagnosis as appropriate pending reevaluation and review of above. Chest Pain Score (Numeric/FACES): 6 - Related Data Allergies Allergy/AdvReac Type Severity Reaction Status Date / Time divalproex sodium Allergy Shaking Verified 11/22/17 13:55 [From Depakote] erythromycin base Allergy Rash Verified 11/22/17 13:55 Iodine and Iodide Containing Allergy Seizure Verified 11/22/17 13:55 Produc latex Allergy Blisters Verified 11/22/17 13:55 paroxetine HCl [From Paxil] Allergy Seizure Verified 11/22/17 13:55 Penicillins Allergy Anaphylactic Verified 11/22/17 13:55 Shock Sulfa (Sulfonamide Allergy Rash Verified 11/22/17 13:55 Antibiotics) tolterodine tartrate Allergy Facial Verified 11/22/17 13:55 [From Detrol] Swelling Home Meds: Home Meds Omeprazole 40 mg PO DAILY 11/23/16 [History] Verapamil [Calan] 300 mg PO DAILY 11/23/16 [History] Albuterol Sulfate [Proair Respiclick] 90 mcg INH QID PRN 11/22/17 [History] Diclofenac Epolamine [Flector] 8 g TOP DAILY 11/22/17 [History] Fesoterodine Fumarate [Toviaz] 8 mg PO DAILY 11/22/17 [History] Levocetirizine Dihydrochloride 5 mg PO DAILY 11/22/17 [History] Meloxicam 15 mg PO DAILY 11/22/17 [History] Past Medical History - Past Health History Medical/Surgical History: Denies Medical/Surgical History HEENT History: Reports: Allergic Rhinitis, Cataract, Hard of Hearing Other HEENT History: wears glasses, has upper dentures Cardiovascular History: Reports: Hypertension Respiratory History: Reports: None Gastrointestinal History: Reports: Colon Polyp, GERD, PUD Other Gastrointestinal History: History of bleeding ulcer, current positive H- pylori test, Heartburn, Epigastric pain Genitourinary History: Reports: None Musculoskeletal History: Reports: None Neurological History: Reports: Headaches, Chronic Psychiatric History: Reports: Anxiety, Bipolar, Depression Endocrine/Metabolic History: Reports: None Hematologic History: Reports: Blood Transfusion(s) Dermatologic History: Reports: None - Infectious Disease History Infectious Disease History: Reports: Chicken Pox, Measles - Past Surgical History GI Surgical History: Reports: Bariatric Procedure, Cholecystectomy, Colonoscopy , EGD Female Surgical History: Reports: Hysterectomy Musculoskeletal Surgical History: Reports: None Social & Family History - Family History Family Medical History: Noncontributory - Caffeine Use Caffeine Use: Reports: Soda ED ROS GENERAL - Review of Systems Review Of Systems: ROS reveals no pertinent complaints other than HPI. ED EXAM, GENERAL - Physical Exam Exam: See Below (See dictation) Course - Vital Signs Last Recorded V/S: Last Vital Signs Temp 36.3 C 11/22/17 13:57 Pulse 75 11/22/17 17:50 Resp 16 11/22/17 17:50 BP 168/91 H 11/22/17 17:50 Pulse Ox 97 11/22/17 17:50 - Orders/Labs/Meds Orders: Active Orders 24 hr Category Date Time Status Cardiac Monitoring [RC] . DIRECTED Care 11/22/17 14:01 Active EKG 12 Lead [EKG Documentation Completion] [RC] STAT Care 11/22/17 13:53 Active Oxygen Therapy, ED [RC] ASDIRECTED Care 11/22/17 14:01 Active Pulse Oximetry [RC] ASDIRECTED Care 11/22/17 14:01 Active Lung Vent Perfusion [NM] Stat Exams 11/22/17 15:37 Taken Venous Doppler Lwr Ext Bi [US] Stat Exams 11/22/17 15:23 Taken UA W/MICROSCOPIC [URIN] Stat Lab 11/22/17 14:23 Ordered Sodium Chloride 0.9% [Saline Flush] Med 11/22/17 14:01 Active 10 ml FLUSH ASDIRECTED PRN Sodium Chloride 0.9% [Saline Flush] Med 11/22/17 14:01 Active 2.5 ml FLUSH ASDIRECTED PRN Saline Lock Insert [OM.PC] Stat Oth 11/22/17 14:01 Ordered Medication Orders Sodium Chloride (Saline Flush) 10 ml FLUSH ASDIRECTED PRN PRN Reason: Keep Vein Open Last Admin: 11/22/17 14:09 Dose: 10 ml Sodium Chloride (Saline Flush) 2.5 ml FLUSH ASDIRECTED PRN PRN Reason: Keep Vein Open Last Admin: 11/22/17 14:09 Dose: 2.5 ml Labs: Laboratory Tests 11/22/17 11/22/17 11/22/17 Range/Units 14:16 14:16 14:16 WBC 5.73 (4.0-11.0) K/uL RBC 4.39 (4.30-5.90) M/uL Hgb 10.5 L (12.0-16.0) g/dL Hct 33.7 L (36.0-46.0) % MCV 76.8 L (80.0-98.0) fL MCH 23.9 L (27.0-32.0) pg MCHC 31.2 (31.0-37.0) g/dL RDW Std Deviation 47.4 (28.0-62.0) fl RDW Coeff of Steven 17 H (11.0-15.0) % Plt Count 229 (150-400) K/uL MPV 10.30 (7.40-12.00) fL Neut % (Auto) 61.5 (48.0-80.0) % Lymph % (Auto) 26.2 (16.0-40.0) % Mitchell % (Auto) 9.2 (0.0-15.0) % Eos % (Auto) 2.6 (0.0-7.0) % Baso % (Auto) 0.5 (0.0-1.5) % Neut # (Auto) 3.5 (1.4-5.7) K/uL Lymph # (Auto) 1.5 (0.6-2.4) K/uL Mitchell # (Auto) 0.5 (0.0-0.8) K/uL Eos # (Auto) 0.2 (0.0-0.7) K/uL Baso # (Auto) 0.0 (0.0-0.1) K/uL Nucleated RBC % 0.0 /100WBC Nucleated RBCs # 0 K/uL INR 0.94 D-Dimer, Quantitative 0.34 (0.0-0.52) mg/LFEU Sodium 142 (136-145) mmol/L Potassium 3.8 (3.5-5.1) mmol/L Chloride 109 H (98-107) mmol/L Carbon Dioxide 22.7 (21.0-32.0) mmol/L BUN 11 (7.0-18.0) mg/dL Creatinine 0.9 (0.6-1.0) mg/dL Est Cr Clr Drug Dosing 53.81 mL/min Estimated GFR (MDRD) > 60.0 ml/min Glucose 86 (74-106) mg/dL Calcium 9.4 (8.5-10.1) mg/dL Total Bilirubin 0.3 (0.2-1.0) mg/dL AST 19 (15-37) IU/L ALT 26 (14-63) IU/L Alkaline Phosphatase 55 (46-116) U/L Troponin I < 0.050 (0.000-0.056) ng/mL B-Natriuretic Peptide (<100) PG/ML Total Protein 6.9 (6.4-8.2) g/dL Albumin 4.0 (3.4-5.0) g/dL Globulin 2.9 (2.0-3.5) g/dL Albumin/Globulin Ratio 1.4 (1.3-2.8) Urine Color Urine Appearance Urine pH (5.0-8.0) Ur Specific [place] (1.001-1.035) Urine Protein (NEGATIVE) mg/dL Urine Glucose (UA) (NEGATIVE) mg/dL Urine Ketones (NEGATIVE) mg/dL Urine Occult Blood (NEGATIVE) Urine Nitrite (NEGATIVE) Urine Bilirubin (NEGATIVE) Urine Urobilinogen (<2.0) EU/dL Ur Leukocyte Esterase (NEGATIVE) Urine RBC (0-2/HPF) Urine WBC (0-5/HPF) Ur Epithelial Cells (NONE-FEW) Urine Bacteria (NEGATIVE) 11/22/17 11/22/17 Range/Units 14:16 14:23 WBC (4.0-11.0) K/uL RBC (4.30-5.90) M/uL Hgb (12.0-16.0) g/dL Hct (36.0-46.0) % MCV (80.0-98.0) fL MCH (27.0-32.0) pg MCHC (31.0-37.0) g/dL RDW Std Deviation (28.0-62.0) fl RDW Coeff of Steven (11.0-15.0) % Plt Count (150-400) K/uL MPV (7.40-12.00) fL Neut % (Auto) (48.0-80.0) % Lymph % (Auto) (16.0-40.0) % Mitchell % (Auto) (0.0-15.0) % Eos % (Auto) (0.0-7.0) % Baso % (Auto) (0.0-1.5) % Neut # (Auto) (1.4-5.7) K/uL Lymph # (Auto) (0.6-2.4) K/uL Mitchell # (Auto) (0.0-0.8) K/uL Eos # (Auto) (0.0-0.7) K/uL Baso # (Auto) (0.0-0.1) K/uL Nucleated RBC % /100WBC Nucleated RBCs # K/uL INR D-Dimer, Quantitative (0.0-0.52) mg/LFEU Sodium (136-145) mmol/L Potassium (3.5-5.1) mmol/L Chloride (98-107) mmol/L Carbon Dioxide (21.0-32.0) mmol/L BUN (7.0-18.0) mg/dL Creatinine (0.6-1.0) mg/dL Est Cr Clr Drug Dosing mL/min Estimated GFR (MDRD) ml/min Glucose (74-106) mg/dL Calcium (8.5-10.1) mg/dL Total Bilirubin (0.2-1.0) mg/dL AST (15-37) IU/L ALT (14-63) IU/L Alkaline Phosphatase (46-116) U/L Troponin I (0.000-0.056) ng/mL B-Natriuretic Peptide 76 (<100) PG/ML Total Protein (6.4-8.2) g/dL Albumin (3.4-5.0) g/dL Globulin (2.0-3.5) g/dL Albumin/Globulin Ratio (1.3-2.8) Urine Color YELLOW Urine Appearance CLEAR Urine pH 8.0 (5.0-8.0) Ur Specific [place] 1.010 (1.001-1.035) Urine Protein NEGATIVE (NEGATIVE) mg/dL Urine Glucose (UA) NEGATIVE (NEGATIVE) mg/dL Urine Ketones TRACE H (NEGATIVE) mg/dL Urine Occult Blood NEGATIVE (NEGATIVE) Urine Nitrite NEGATIVE (NEGATIVE) Urine Bilirubin NEGATIVE (NEGATIVE) Urine Urobilinogen 0.2 (<2.0) EU/dL Ur Leukocyte Esterase NEGATIVE (NEGATIVE) Urine RBC 0-1 (0-2/HPF) Urine WBC 0-1 (0-5/HPF) Ur Epithelial Cells RARE (NONE-FEW) Urine Bacteria RARE (NEGATIVE) Meds: Medications Generic Name Dose Route Start Last Admin Trade Name Freq PRN Reason Stop Dose Admin Sodium Chloride 10 ml 11/22/17 14:01 11/22/17 14:09 Saline Flush FLUSH 10 ml ASDIRECTED PRN Administration Keep Vein Open Sodium Chloride 2.5 ml 11/22/17 14:01 11/22/17 14:09 Saline Flush FLUSH 2.5 ml ASDIRECTED PRN Administration Keep Vein Open Discontinued Medications Generic Name Dose Route Start Last Admin Trade Name Freq PRN Reason Stop Dose Admin Aspirin 324 mg 11/22/17 14:01 11/22/17 14:09 Aspirin PO 11/22/17 14:02 324 mg ONETIME ONE Administration Nitroglycerin 1 gm 11/22/17 14:01 11/22/17 14:09 Nitro-Bid 2% TOP 11/22/17 14:02 1 gm ONETIME ONE Administration Departure - Departure Time of Disposition: 18:09 Disposition: Refer to Observation Condition: Good Clinical Impression: Hypoxia Dyspnea Qualifiers: Dyspnea type: unspecified Qualified Code(s): R06.00 - Dyspnea, unspecified - Discharge Information - My Orders Last 24 Hours: My Active Orders 11/22/17 13:53 EKG 12 Lead [EKG Documentation Completion] [RC] STAT 11/22/17 14:01 Cardiac Monitoring [RC] . DIRECTED Oxygen Therapy, ED [RC] ASDIRECTED Pulse Oximetry [RC] ASDIRECTED Sodium Chloride 0.9% [Saline Flush] 10 ml FLUSH ASDIRECTED PRN Sodium Chloride 0.9% [Saline Flush] 2.5 ml FLUSH ASDIRECTED PRN Saline Lock Insert [OM.PC] Stat 11/22/17 14:23 UA W/MICROSCOPIC [URIN] Stat 11/22/17 15:23 Venous Doppler Lwr Ext Bi [US] Stat 11/22/17 15:37 Lung Vent Perfusion [NM] Stat - Assessment/Plan Last 24 Hours: My Active Orders 11/22/17 13:53 EKG 12 Lead [EKG Documentation Completion] [RC] STAT 11/22/17 14:01 Cardiac Monitoring [RC] . DIRECTED Oxygen Therapy, ED [RC] ASDIRECTED Pulse Oximetry [RC] ASDIRECTED Sodium Chloride 0.9% [Saline Flush] 10 ml FLUSH ASDIRECTED PRN Sodium Chloride 0.9% [Saline Flush] 2.5 ml FLUSH ASDIRECTED PRN Saline Lock Insert [OM.PC] Stat 11/22/17 14:23 UA W/MICROSCOPIC [URIN] Stat 11/22/17 15:23 Venous Doppler Lwr Ext Bi [US] Stat 11/22/17 15:37 Lung Vent Perfusion [NM] Stat
[2017-11-22 14:54] LABS: CHLORIDE,CL 109 mmol/L (98-107); SODIUM,NA 142 mmol/L (136-145)
--- NOTE | 2017-11-22 15:08 | CR ---
EXAMINATION: Portable chest radiograph. HISTORY: Shortness of breath. FINDINGS: The trachea is midline. The cardiomediastinal silhouette is within normal limits. No pulmonary infilt rates, effusions or pneumothorax. Mild interstitial prominence. Osseous structures appear unremarkable. IMPRESSION: No acute cardiopulmonary process.
--- NOTE | 2017-11-22 18:26 | PCM.HP ---
H&P History of Present Illness - General Admit Problem/Dx: Admission Diagnosis/Problem Admission Diagnosis/Problem Dyspnea Chest Pain Score (Numeric/FACES): 6 - Related Data Allergies/Adverse Reactions: Allergies Allergy/AdvReac Type Severity Reaction Status Date / Time divalproex sodium Allergy Shaking Verified 11/22/17 13:55 [From Depakote] erythromycin base Allergy Rash Verified 11/22/17 13:55 Iodine and Iodide Containing Allergy Seizure Verified 11/22/17 13:55 Produc latex Allergy Blisters Verified 11/22/17 13:55 paroxetine HCl [From Paxil] Allergy Seizure Verified 11/22/17 13:55 Penicillins Allergy Anaphylactic Verified 11/22/17 13:55 Shock Sulfa (Sulfonamide Allergy Rash Verified 11/22/17 13:55 Antibiotics) tolterodine tartrate Allergy Facial Verified 11/22/17 13:55 [From Detrol] Swelling Home Medications: Home Meds Omeprazole 40 mg PO DAILY 11/23/16 [History] Verapamil [Calan] 300 mg PO DAILY 11/23/16 [History] Albuterol Sulfate [Proair Respiclick] 90 mcg INH QID PRN 11/22/17 [History] Diclofenac Epolamine [Flector] 8 g TOP DAILY 11/22/17 [History] Fesoterodine Fumarate [Toviaz] 8 mg PO DAILY 11/22/17 [History] Levocetirizine Dihydrochloride 5 mg PO DAILY 11/22/17 [History] Meloxicam 15 mg PO DAILY 11/22/17 [History] Past Medical History - Past Health History Medical/Surgical History: Denies Medical/Surgical History HEENT History: Reports: Allergic Rhinitis, Cataract, Hard of Hearing Other HEENT History: wears glasses, has upper dentures Cardiovascular History: Reports: Hypertension Respiratory History: Reports: None Gastrointestinal History: Reports: Colon Polyp, GERD, PUD Other Gastrointestinal History: History of bleeding ulcer, current positive H- pylori test, Heartburn, Epigastric pain Genitourinary History: Reports: None Musculoskeletal History: Reports: None Neurological History: Reports: Headaches, Chronic Psychiatric History: Reports: Anxiety, Bipolar, Depression Endocrine/Metabolic History: Reports: None Hematologic History: Reports: Blood Transfusion(s) Dermatologic History: Reports: None - Infectious Disease History Infectious Disease History: Reports: Chicken Pox, Measles - Past Surgical History GI Surgical History: Reports: Bariatric Procedure, Cholecystectomy, Colonoscopy , EGD Female Surgical History: Reports: Hysterectomy Musculoskeletal Surgical History: Reports: None Social & Family History - Family History Family Medical History: Noncontributory - Tobacco Use Smoking Status *Q: Never Smoker - Caffeine Use Caffeine Use: Reports: Soda - Recreational Drug Use Recreational Drug Use: No Exam - Vital Signs Vital Signs: Last Vital Signs Temp 96.9 F 11/22/17 18:21 Pulse 71 11/22/17 18:21 Resp 20 11/22/17 18:21 BP 193/99 H 11/22/17 18:21 Pulse Ox 100 11/22/17 18:21 Weight: 158 lb 11.725 oz - Patient Data Lab Results Last 24 hrs: Laboratory Results - last 24 hr 11/22/17 11/22/17 11/22/17 Range/Units 14:16 14:16 14:16 WBC 5.73 (4.0-11.0) K/uL RBC 4.39 (4.30-5.90) M/uL Hgb 10.5 L (12.0-16.0) g/dL Hct 33.7 L (36.0-46.0) % MCV 76.8 L (80.0-98.0) fL MCH 23.9 L (27.0-32.0) pg MCHC 31.2 (31.0-37.0) g/dL RDW Std Deviation 47.4 (28.0-62.0) fl RDW Coeff of Steven 17 H (11.0-15.0) % Plt Count 229 (150-400) K/uL MPV 10.30 (7.40-12.00) fL Neut % (Auto) 61.5 (48.0-80.0) % Lymph % (Auto) 26.2 (16.0-40.0) % [place] % (Auto) 9.2 (0.0-15.0) % Eos % (Auto) 2.6 (0.0-7.0) % Baso % (Auto) 0.5 (0.0-1.5) % Neut # (Auto) 3.5 (1.4-5.7) K/uL Lymph # (Auto) 1.5 (0.6-2.4) K/uL [place] # (Auto) 0.5 (0.0-0.8) K/uL Eos # (Auto) 0.2 (0.0-0.7) K/uL Baso # (Auto) 0.0 (0.0-0.1) K/uL Nucleated RBC % 0.0 /100WBC Nucleated RBCs # 0 K/uL INR 0.94 D-Dimer, Quantitative 0.34 (0.0-0.52) mg/LFEU Sodium 142 (136-145) mmol/L Potassium 3.8 (3.5-5.1) mmol/L Chloride 109 H (98-107) mmol/L Carbon Dioxide 22.7 (21.0-32.0) mmol/L BUN 11 (7.0-18.0) mg/dL Creatinine 0.9 (0.6-1.0) mg/dL Est Cr Clr Drug Dosing 53.81 mL/min Estimated GFR (MDRD) > 60.0 ml/min Glucose 86 (74-106) mg/dL Calcium 9.4 (8.5-10.1) mg/dL Total Bilirubin 0.3 (0.2-1.0) mg/dL AST 19 (15-37) IU/L ALT 26 (14-63) IU/L Alkaline Phosphatase 55 (46-116) U/L Troponin I < 0.050 (0.000-0.056) ng/mL B-Natriuretic Peptide (<100) PG/ML Total Protein 6.9 (6.4-8.2) g/dL Albumin 4.0 (3.4-5.0) g/dL Globulin 2.9 (2.0-3.5) g/dL Albumin/Globulin Ratio 1.4 (1.3-2.8) Urine Color Urine Appearance Urine pH (5.0-8.0) Ur Specific [place] (1.001-1.035) Urine Protein (NEGATIVE) mg/dL Urine Glucose (UA) (NEGATIVE) mg/dL Urine Ketones (NEGATIVE) mg/dL Urine Occult Blood (NEGATIVE) Urine Nitrite (NEGATIVE) Urine Bilirubin (NEGATIVE) Urine Urobilinogen (<2.0) EU/dL Ur Leukocyte Esterase (NEGATIVE) Urine RBC (0-2/HPF) Urine WBC (0-5/HPF) Ur Epithelial Cells (NONE-FEW) Urine Bacteria (NEGATIVE) 11/22/17 11/22/17 Range/Units 14:16 14:23 WBC (4.0-11.0) K/uL RBC (4.30-5.90) M/uL Hgb (12.0-16.0) g/dL Hct (36.0-46.0) % MCV (80.0-98.0) fL MCH (27.0-32.0) pg MCHC (31.0-37.0) g/dL RDW Std Deviation (28.0-62.0) fl RDW Coeff of Steven (11.0-15.0) % Plt Count (150-400) K/uL MPV (7.40-12.00) fL Neut % (Auto) (48.0-80.0) % Lymph % (Auto) (16.0-40.0) % [place] % (Auto) (0.0-15.0) % Eos % (Auto) (0.0-7.0) % Baso % (Auto) (0.0-1.5) % Neut # (Auto) (1.4-5.7) K/uL Lymph # (Auto) (0.6-2.4) K/uL [place] # (Auto) (0.0-0.8) K/uL Eos # (Auto) (0.0-0.7) K/uL Baso # (Auto) (0.0-0.1) K/uL Nucleated RBC % /100WBC Nucleated RBCs # K/uL INR D-Dimer, Quantitative (0.0-0.52) mg/LFEU Sodium (136-145) mmol/L Potassium (3.5-5.1) mmol/L Chloride (98-107) mmol/L Carbon Dioxide (21.0-32.0) mmol/L BUN (7.0-18.0) mg/dL Creatinine (0.6-1.0) mg/dL Est Cr Clr Drug Dosing mL/min Estimated GFR (MDRD) ml/min Glucose (74-106) mg/dL Calcium (8.5-10.1) mg/dL Total Bilirubin (0.2-1.0) mg/dL AST (15-37) IU/L ALT (14-63) IU/L Alkaline Phosphatase (46-116) U/L Troponin I (0.000-0.056) ng/mL B-Natriuretic Peptide 76 (<100) PG/ML Total Protein (6.4-8.2) g/dL Albumin (3.4-5.0) g/dL Globulin (2.0-3.5) g/dL Albumin/Globulin Ratio (1.3-2.8) Urine Color YELLOW Urine Appearance CLEAR Urine pH 8.0 (5.0-8.0) Ur Specific [place] 1.010 (1.001-1.035) Urine Protein NEGATIVE (NEGATIVE) mg/dL Urine Glucose (UA) NEGATIVE (NEGATIVE) mg/dL Urine Ketones TRACE H (NEGATIVE) mg/dL Urine Occult Blood NEGATIVE (NEGATIVE) Urine Nitrite NEGATIVE (NEGATIVE) Urine Bilirubin NEGATIVE (NEGATIVE) Urine Urobilinogen 0.2 (<2.0) EU/dL Ur Leukocyte Esterase NEGATIVE (NEGATIVE) Urine RBC 0-1 (0-2/HPF) Urine WBC 0-1 (0-5/HPF) Ur Epithelial Cells RARE (NONE-FEW) Urine Bacteria RARE (NEGATIVE) Result Diagrams: 11/22/17 14:16 11/22/17 14:16 Orders Last 24hrs: Active Orders 24 hr Category Date Time Status Patient Status [ADT] Stat ADT 11/22/17 17:12 Active Cardiac Monitoring [RC] . DIRECTED Care 11/22/17 14:01 Active EKG 12 Lead [EKG Documentation Completion] [RC] STAT Care 11/22/17 13:53 Active Oxygen Therapy [RC] PRN Care 11/22/17 18:23 Ordered Oxygen Therapy, ED [RC] ASDIRECTED Care 11/22/17 14:01 Active Pulse Oximetry [RC] ASDIRECTED Care 11/22/17 14:01 Active Pulse Oximetry [RC] PRN Care 11/22/17 18:24 Ordered Up ad Madelin [RC] ASDIRECTED Care 11/22/17 18:23 Ordered VTE/DVT Education [RC] PER UNIT ROUTINE Care 11/22/17 18:23 Ordered Vital Signs [RC] Q4H Care 11/22/17 18:23 Ordered 2 Gram Sodium Diet [DIET] Diet 11/22/17 Breakfast Ordered Lung Vent Perfusion [NM] Stat Exams 11/22/17 15:37 Taken Venous Doppler Lwr Ext Bi [US] Stat Exams 11/22/17 15:23 Taken CBC WITH AUTO DIFF [HEME] AM Lab 11/23/17 05:11 Ordered CBC WITH AUTO DIFF [HEME] AM Lab 11/24/17 05:11 Ordered CBC WITH AUTO DIFF [HEME] AM Lab 11/25/17 05:11 Ordered CBC WITH AUTO DIFF [HEME] AM Lab 11/26/17 05:11 Ordered CBC WITH AUTO DIFF [HEME] AM Lab 11/27/17 05:11 Ordered COMPREHENSIVE METABOLIC PN,CMP [CHEM] AM Lab 11/23/17 05:11 Ordered COMPREHENSIVE METABOLIC PN,CMP [CHEM] AM Lab 11/24/17 05:11 Ordered COMPREHENSIVE METABOLIC PN,CMP [CHEM] AM Lab 11/25/17 05:11 Ordered COMPREHENSIVE METABOLIC PN,CMP [CHEM] AM Lab 11/26/17 05:11 Ordered COMPREHENSIVE METABOLIC PN,CMP [CHEM] AM Lab 11/27/17 05:11 Ordered UA W/MICROSCOPIC [URIN] Stat Lab 11/22/17 14:23 Ordered Albuterol Sulfate [Proair Respiclick] Med 11/22/17 18:25 Ordered 90 mcg INH QID PRN Diclofenac Epolamine [Flector] Med 11/23/17 09:00 Ordered 8 g TOP DAILY Levocetirizine Dihydrochloride [Levocetirizine Med 11/23/17 09:00 Ordered Dihydrochloride] 5 mg PO DAILY Omeprazole [Omeprazole] Med 11/23/17 09:00 Ordered 40 mg PO DAILY Sodium Chloride 0.9% [Saline Flush] Med 11/22/17 14:01 Active 10 ml FLUSH ASDIRECTED PRN Sodium Chloride 0.9% [Saline Flush] Med 11/22/17 18:23 Ordered 10 ml FLUSH ASDIRECTED PRN Sodium Chloride 0.9% [Saline Flush] Med 11/22/17 14:01 Active 2.5 ml FLUSH ASDIRECTED PRN Sodium Chloride 0.9% [Saline Flush] Med 11/22/17 18:23 Ordered 2.5 ml FLUSH ASDIRECTED PRN Verapamil [Calan] Med 11/23/17 09:00 Ordered 300 mg PO DAILY Peripheral IV Insertion Adult [OM.PC] Routine Oth 11/22/17 18:23 Ordered Saline Lock Insert [OM.PC] Stat Oth 11/22/17 14:01 Ordered Sequential Compression Device [OM.PC] Per Unit Routine Oth 11/22/17 18:24 Ordered Resuscitation Status Routine Resus Stat 11/22/17 18:23 Ordered Medication Orders Sodium Chloride (Saline Flush) 10 ml FLUSH ASDIRECTED PRN PRN Reason: Keep Vein Open Last Admin: 11/22/17 14:09 Dose: 10 ml Sodium Chloride (Saline Flush) 2.5 ml FLUSH ASDIRECTED PRN PRN Reason: Keep Vein Open Last Admin: 11/22/17 14:09 Dose: 2.5 ml
[2017-11-22] MEDS ORDERED: Albuterol HFA 18 Gm Inhaler INH PRN (18:37)
[2017-11-23] MEDS ORDERED: Acetaminophen 325 MG Tab PO PRN (00:24)
[2017-11-23 05:55] LABS: CHLORIDE,CL 110 mmol/L (98-107); SODIUM,NA 143 mmol/L (136-145)
[2017-11-23] MEDS: Omeprazole 20 MG Cap.CR PO SCH (06:32)
[2017-11-23] MEDS ORDERED: Albuterol 8 GM Inhaler INH PRN (07:15)
[2017-11-23] MEDS ORDERED: VERAPAMIL HCL 300 MG PO SCH (10:15)
[2017-11-23] MEDS: DICLOFENAC EPOLAMINE TOP SCH (10:16)
[2017-11-23] MEDS: VERAPAMIL 300 MG PO SCH (10:17)
--- NOTE | 2017-11-23 10:38 | US ---
EXAM DATE: 11/22/17 PATIENT'S AGE: 66 Patient: BJ MCCAIN Facility: [place], [place] Site . Site : 1950 Study: US Extremity Bilateral Lower Venous [id number]/28/2018 4:55:19 PM Ordering Physician: Aimee Mitchell Final Report: INDICATION: Feet swelling 1 day, shortness of breath TECHNIQUE: Ultrasound venous duplex bilateral lower extremities. Jeter-scale, color Doppler, and spectral Doppler imaging were performed with compression and augmentation. COMPARISON: None FINDINGS: Deep veins: The bilateral femoral, common femoral, popliteal, and visualized calf veins are fully compressible, demonstrate normal color flow, and normal response to mechanical augmentation. The Duplex Doppler waveforms are normal in appearance. Superficial veins: The visualized greater saphenous and superficial veins of the leg and calf are unremarkable. Soft tissue: No masses or cysts are identified. No adenopathy is seen. IMPRESSION: 1. No sonographic evidence of deep venous thrombosis seen in either lower extremities. Dictated by: Federico Parker MD @ 11/22/2017 17:09:24 (Electronic Signature) Report Signed by Proxy. MAXWELL
--- NOTE | 2017-11-23 10:52 | CT ---
EXAMINATION: CT chest without contrast HISTORY: Dyspnea COMPARISON: Chest radiograph dated 11/22/2017 TECHNIQUE: Axial CT images obtained through the chest without contrast. Coronal and sagittal reconstr uctions obtained. High-resolution protocol used. FINDINGS: The lungs are clear without focal consolidation. No pleural effusion or pneumothorax. Mild dependent atelectasis. There is no honeycombing, bronchiectasis, or volume loss. No reticular or grou ndglass opacities. The heart is normal in size without a pericardial effusion. Minimal mitral annular calcifications. Descending aorta is mildly prominent at 4 cm. No mediastinal lymphadenopathy or gloria r fullness. No axillary lymphadenopathy. Central airways are clear. Postsurgical changes are noted secondary to gastric bypass. No suspicious osseous abnormalities ident ified. IMPRESSION: 1. No acute cardiopulmonary findings. 2. No evidence of pulmonary fibrosis.
--- NOTE | 2017-11-23 12:48 | NM ---
EXAM DATE: 11/22/17 PATIENT'S AGE: 66 Patient: BJ MCCAIN Facility: [place], [place] Site Site : 1950 Study: [place] Chest [id number]/28/2018 5:53:40 PM Ordering Physician: HENRRY Final Report: HISTORY: 66-year-old female. Shortness of breath for 3 weeks. Technique: 40.1 millicuries of technetium-99m DTPA aerosol was utilized for the ventilation images. 4.0 millicuries [id number] was injected intravenously for the perfusion images. COMPARISON: Chest x-ray of 11/22/2017 at 2:55 p.m. FINDINGS: The perfusion images demonstrate minor perfusion inhomogeneities. The ventilation images demonstrate matching inhomogeneities. In some instances, the ventilation abnormalities are more prominent than the perfusion abnormalities. The chest x-rays without corresponding infiltrates. No significant V/Q mismatches are identified. IMPRESSION: 1. There are findings consistent with a low probability, but not a zero probability, for pulmonary embolism. 2. These findings agree with the preliminary report given by Dr. Parker. Dictated by Joseph Mckeon MD @ Nov 23 2017 10:39AM (Electronic Signature) Report Signed by Proxy. MAXWELL
[2017-11-23] MEDS ORDERED: Albuterol/Ipratropium 3.0-0.5 MG/3 ML Neb Soln NEB PRN (15:40)
[2017-11-23] MEDS ORDERED: Furosemide 40 MG/4 ML VIAL IVPUSH STA (17:30)
[2017-11-23] MEDS ORDERED: methylPREDNISolone Sodium Succinate 40 MG/1 ML SDV IVPUSH SCH (20:00)
[2017-11-23] MEDS ORDERED: Lisinopril 5 MG Tab PO ONE (20:02)
[2017-11-23] MEDS ORDERED: Morphine 2 MG/ML Syringe IVPUSH ONE (20:46)
[2017-11-23] MEDS: Fluticasone/Salmeterol 250-50 MCG Inhalation Powder 14/Diskus INH SCH (20:55)
[2017-11-23] MEDS: LORazepam 2 MG/ML SDV IVPUSH PRN (21:54)
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
[2017-11-24 05:47] LABS: CHLORIDE,CL 110 mmol/L (98-107); SODIUM,NA 144 mmol/L (136-145)
[2017-11-24] MEDS: Omeprazole 20 MG Cap.CR PO SCH (06:42)
[2017-11-24] MEDS: Fluticasone/Salmeterol 250-50 MCG Inhalation Powder 14/Diskus INH SCH (09:20)
[2017-11-24] MEDS: DICLOFENAC EPOLAMINE TOP SCH (10:26)
[2017-11-24] MEDS: VERAPAMIL 300 MG PO SCH (10:27)
[2017-11-24] MEDS: LORazepam 2 MG/ML SDV IVPUSH PRN (15:23)
[2017-11-24] MEDS ORDERED: LORazepam 1 MG Tab PO ONE (15:29)
--- NOTE | 2017-11-24 19:30 | PCM.PN ---
- General Info Date of Service: 11/24/17 Subjective Update: Patient feeling well in the morning , her anxiety improved. Vernell discussed patient with Dr. Headley who recommended for her Ativan 1 mg po BId and Seroquel 25 mg po q hs. She wanted to go home but after she took a shower she became very SOB and she was given 2 mg of ativan and discharge was hold. - Review of Systems General: Reports: No Symptoms HEENT: Reports: No Symptoms Pulmonary: Reports: Shortness of Breath Cardiovascular: Reports: No Symptoms Gastrointestinal: Reports: No Symptoms Genitourinary: Reports: No Symptoms Musculoskeletal: Reports: No Symptoms Skin: Reports: No Symptoms Neurological: Reports: No Symptoms Psychiatric: Reports: Anxiety - Patient Data Vitals - Most Recent: Last Vital Signs Temp 97.4 F 11/24/17 15:00 Pulse 72 11/24/17 15:00 Resp 18 11/24/17 15:00 BP 145/81 H 11/24/17 15:00 Pulse Ox 100 11/24/17 15:00 Weight - Most Recent: 153 lb 8 oz I&O - Last 24 Hours: Intake & Output 11/24/17 11/24/17 11/24/17 06:59 14:59 22:59 Intake Total 650 400 Output Total 1600 100 Balance -950 300 Lab Results Last 24 Hours: Laboratory Results - last 24 hr 11/23/17 11/24/17 11/24/17 Range/Units 20:15 03:11 05:10 WBC 7.25 (4.0-11.0) K/uL RBC 4.41 (4.30-5.90) M/uL Hgb 10.6 L (12.0-16.0) g/dL Hct 33.8 L (36.0-46.0) % MCV 76.6 L (80.0-98.0) fL MCH 24.0 L (27.0-32.0) pg MCHC 31.4 (31.0-37.0) g/dL RDW Std Deviation 48.4 (28.0-62.0) fl RDW Coeff of Steven 17 H (11.0-15.0) % Plt Count 247 (150-400) K/uL MPV 10.40 (7.40-12.00) fL Neut % (Auto) 88.3 H (48.0-80.0) % Lymph % (Auto) 7.9 L (16.0-40.0) % [place] % (Auto) 3.7 (0.0-15.0) % Eos % (Auto) 0.0 (0.0-7.0) % Baso % (Auto) 0.1 (0.0-1.5) % Neut # (Auto) 6.4 H (1.4-5.7) K/uL Lymph # (Auto) 0.6 (0.6-2.4) K/uL [place] # (Auto) 0.3 (0.0-0.8) K/uL Eos # (Auto) 0.0 (0.0-0.7) K/uL Baso # (Auto) 0.0 (0.0-0.1) K/uL Nucleated RBC % 0.0 /100WBC Nucleated RBCs # 0 K/uL ABG pH 7.518 H (7.35-7.45) ABG pCO2 25 L (35-45) mmHG ABG pO2 93 (75-100) mmHG ABG HCO3 20 L (22-26) mEq/L ABG Total CO2 18.3 ABG Base Excess -1.6 (-2.0-2.0) Sodium (136-145) mmol/L Potassium (3.5-5.1) mmol/L Chloride (98-107) mmol/L Carbon Dioxide (21.0-32.0) mmol/L BUN (7.0-18.0) mg/dL Creatinine (0.6-1.0) mg/dL Est Cr Clr Drug Dosing mL/min Estimated GFR (MDRD) ml/min Glucose (74-106) mg/dL Calcium (8.5-10.1) mg/dL Total Bilirubin (0.2-1.0) mg/dL AST (15-37) IU/L ALT (14-63) IU/L Alkaline Phosphatase (46-116) U/L Total Protein (6.4-8.2) g/dL Albumin (3.4-5.0) g/dL Globulin (2.0-3.5) g/dL Albumin/Globulin Ratio (1.3-2.8) Urine Opiates Screen POSITIVE (NEGATIVE) Ur Oxycodone Screen NEGATIVE (NEGATIVE) Urine Methadone Screen NEGATIVE (NEGATIVE) Ur Barbiturates Screen NEGATIVE (NEGATIVE) Ur Phencyclidine Scrn NEGATIVE (NEGATIVE) Ur Amphetamine Screen NEGATIVE (NEGATIVE) U Methamphetamines Scrn NEGATIVE (NEGATIVE) U Benzodiazepines Scrn NEGATIVE (NEGATIVE) U Cocaine Metab Screen NEGATIVE (NEGATIVE) U Marijuana (THC) Screen NEGATIVE (NEGATIVE) 11/24/17 Range/Units 05:10 WBC (4.0-11.0) K/uL RBC (4.30-5.90) M/uL Hgb (12.0-16.0) g/dL Hct (36.0-46.0) % MCV (80.0-98.0) fL MCH (27.0-32.0) pg MCHC (31.0-37.0) g/dL RDW Std Deviation (28.0-62.0) fl RDW Coeff of Steven (11.0-15.0) % Plt Count (150-400) K/uL MPV (7.40-12.00) fL Neut % (Auto) (48.0-80.0) % Lymph % (Auto) (16.0-40.0) % [place] % (Auto) (0.0-15.0) % Eos % (Auto) (0.0-7.0) % Baso % (Auto) (0.0-1.5) % Neut # (Auto) (1.4-5.7) K/uL Lymph # (Auto) (0.6-2.4) K/uL [place] # (Auto) (0.0-0.8) K/uL Eos # (Auto) (0.0-0.7) K/uL Baso # (Auto) (0.0-0.1) K/uL Nucleated RBC % /100WBC Nucleated RBCs # K/uL ABG pH (7.35-7.45) ABG pCO2 (35-45) mmHG ABG pO2 (75-100) mmHG ABG HCO3 (22-26) mEq/L ABG Total CO2 ABG Base Excess (-2.0-2.0) Sodium 144 (136-145) mmol/L Potassium 3.8 (3.5-5.1) mmol/L Chloride 110 H (98-107) mmol/L Carbon Dioxide 23.3 (21.0-32.0) mmol/L BUN 16 (7.0-18.0) mg/dL Creatinine 0.9 (0.6-1.0) mg/dL Est Cr Clr Drug Dosing 53.81 mL/min Estimated GFR (MDRD) > 60.0 ml/min Glucose 150 H (74-106) mg/dL Calcium 8.5 (8.5-10.1) mg/dL Total Bilirubin 0.2 (0.2-1.0) mg/dL AST 21 (15-37) IU/L ALT 28 (14-63) IU/L Alkaline Phosphatase 52 (46-116) U/L Total Protein 6.7 (6.4-8.2) g/dL Albumin 3.5 (3.4-5.0) g/dL Globulin 3.2 (2.0-3.5) g/dL Albumin/Globulin Ratio 1.1 L (1.3-2.8) Urine Opiates Screen (NEGATIVE) Ur Oxycodone Screen (NEGATIVE) Urine Methadone Screen (NEGATIVE) Ur Barbiturates Screen (NEGATIVE) Ur Phencyclidine Scrn (NEGATIVE) Ur Amphetamine Screen (NEGATIVE) U Methamphetamines Scrn (NEGATIVE) U Benzodiazepines Scrn (NEGATIVE) U Cocaine Metab Screen (NEGATIVE) U Marijuana (THC) Screen (NEGATIVE) Med Orders - Current: Current Medications Acetaminophen (Tylenol) 650 mg PO Q6H PRN PRN Reason: Pain Last Admin: 11/23/17 00:35 Dose: 650 mg Albuterol (Ventolin Hfa) 0 gm INH QID PRN PRN Reason: Wheezing Albuterol/Ipratropium (Duoneb 3.0-0.5 Mg/3 Ml) 3 ml NEB Q4HRRT PRN PRN Reason: sob Last Admin: 11/23/17 16:04 Dose: 3 ml Lorazepam (Ativan) 2 mg IVPUSH Q4H PRN PRN Reason: Anxiety Last Admin: 11/23/17 21:54 Dose: 2 mg Omeprazole (Omeprazole) 40 mg PO ACBRK MICKY Last Admin: 11/24/17 06:42 Dose: 40 mg Diclofenac Epolamine ([Flector] 8 G) 1 each TOP DAILY [facility] Last Admin: 11/24/17 10:26 Dose: Not Given Levocetirizine 5 Mg 1 each PO DAILY [facility] Last Admin: 11/24/17 10:26 Dose: Not Given Verapamil 300 Mg Er 1 each PO DAILY [facility] Last Admin: 11/24/17 10:27 Dose: Not Given Quetiapine Fumarate (Seroquel) 25 mg PO BEDTIME [facility] Fluticasone/Salmeterol (Advair Diskus 250-50) 0 puff INH BID [facility] Last Admin: 11/24/17 09:20 Dose: 1 puff Sodium Chloride (Saline Flush) 10 ml FLUSH ASDIRECTED PRN PRN Reason: Keep Vein Open Sodium Chloride (Saline Flush) 2.5 ml FLUSH ASDIRECTED PRN PRN Reason: Keep Vein Open Discontinued Medications Albuterol (Ventolin Hfa) 0 gm INH QID PRN PRN Reason: Wheezing Aspirin (Aspirin) 324 mg PO ONETIME ONE Stop: 11/22/17 14:02 Last Admin: 11/22/17 14:09 Dose: 324 mg Furosemide (Lasix) 40 mg IVPUSH NOW STA Stop: 11/23/17 17:31 Last Admin: 11/23/17 18:00 Dose: 40 mg Lisinopril (Prinivil) 5 mg PO ONETIME ONE Stop: 11/23/17 20:03 Last Admin: 11/23/17 20:57 Dose: 5 mg Lorazepam (Ativan) 2 mg PO ONETIME ONE Stop: 11/24/17 15:30 Last Admin: 11/24/17 15:40 Dose: 2 mg Methylprednisolone Sodium Succinate (Solu-Medrol) 40 mg IVPUSH Q6H [facility] Last Admin: 11/23/17 20:58 Dose: 40 mg Morphine Sulfate (Morphine) 2 mg IVPUSH ONETIME ONE Stop: 11/23/17 20:47 Last Admin: 11/23/17 21:03 Dose: 2 mg Nitroglycerin (Nitro-Bid 2%) 1 gm TOP ONETIME ONE Stop: 11/22/17 14:02 Last Admin: 11/22/17 14:09 Dose: 1 gm Non-Formulary Medication (Verapamil Hcl [Verapamil Er Pm]) 300 mg PO DAILY [facility] Quetiapine Fumarate (Seroquel) 50 mg PO DAILY [facility] Sodium Chloride (Saline Flush) 10 ml FLUSH ASDIRECTED PRN PRN Reason: Keep Vein Open Last Admin: 11/22/17 14:09 Dose: 10 ml Sodium Chloride (Saline Flush) 2.5 ml FLUSH ASDIRECTED PRN PRN Reason: Keep Vein Open Last Admin: 11/22/17 14:09 Dose: 2.5 ml - Exam General: Alert, Oriented HEENT: Pupils Equal Neck: Supple, Trachea Midline, No JVD Lungs: Clear to Auscultation, Normal Respiratory Effort Cardiovascular: Regular Rate, Regular Rhythm, No Murmurs (Female) Exam: Normal External Exam Back Exam: Normal Inspection Extremities: Normal Inspection Skin: Warm, Dry Neurological: No New Focal Deficit Psy/Mental Status: Alert, Normal Affect - Problem List & Annotations (1) Hyperventilation syndrome SNOMED Code(s): 619757837 Code(s): F45.8 - OTHER SOMATOFORM DISORDERS Status: Acute Current Visit: Yes (2) Severe anxiety with panic SNOMED Code(s): 98336200 Code(s): F41.0 - PANIC DISORDER [EPISODIC PAROXYSMAL ANXIETY] Status: Acute Current Visit: Yes (3) Anemia SNOMED Code(s): 930689473 Code(s): D64.9 - ANEMIA, UNSPECIFIED Status: Acute Current Visit: Yes Qualifiers: Anemia type: iron deficiency (4) Leg edema SNOMED Code(s): 401094400 Code(s): R60.0 - LOCALIZED EDEMA Status: Acute Current Visit: Yes - Problem List Review Problem List Initiated/Reviewed/Updated: Yes - My Orders Last 24 Hours: My Active Orders 11/23/17 19:01 Consult to Physician [CONS] Routine 11/23/17 19:02 Notify Provider Consults [RC] ASDIRECTED 11/23/17 20:12 Blood Culture x2 Reflex Set [OM.PC] Stat 11/23/17 20:35 CULTURE BLOOD [BC] Stat 11/23/17 20:45 CULTURE BLOOD [BC] Stat 11/23/17 21:00 Fluticasone/Salmeterol [Advair Diskus 250-50] 0 puff INH BID 11/23/17 21:42 LORazepam [Ativan] 2 mg IVPUSH Q4H PRN 11/24/17 03:11 DRUG SCREEN, URINE [URCHEM] Routine 11/24/17 14:11 Supply Chain Associate Discontinue [Cardiac Monitoring Discontinue] [RC] Click to Edit 11/24/17 14:59 Ready for Discharge [RC] PER UNIT ROUTINE 11/24/17 21:00 QUEtiapine [SEROquel] 25 mg PO BEDTIME 11/25/17 05:11 CBC WITH AUTO DIFF [HEME] AM COMPREHENSIVE METABOLIC PN,CMP [CHEM] AM 11/26/17 05:11 CBC WITH AUTO DIFF [HEME] AM COMPREHENSIVE METABOLIC PN,CMP [CHEM] AM 11/27/17 05:11 CBC WITH AUTO DIFF [HEME] AM COMPREHENSIVE METABOLIC PN,CMP [CHEM] AM - Plan Plan:: severe anxiety - will give patient ativan 1 mg po q hs and Seroqel 25 mg po q Hs and f/up Ativan 2 mg po q 4 h prn for panic attacks or SOB.B 12 level normal , anemia- mild - stable
[2017-11-24] MEDS ORDERED: LORazepam 1 MG Tab PO PRN (20:26)
[2017-11-24] MEDS ORDERED: QUEtiapine 25 MG Tab PO SCH (21:00)
[2017-11-25 05:48] LABS: CHLORIDE,CL 109 mmol/L (98-107); SODIUM,NA 142 mmol/L (136-145)
[2017-11-25] MEDS: Omeprazole 20 MG Cap.CR PO SCH (06:37)
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
[2017-11-25] MEDS: DICLOFENAC EPOLAMINE TOP SCH (14:13)
[2017-11-25] MEDS: VERAPAMIL 300 MG PO SCH (14:14)
[2017-11-25 15:57] VITALS: BP 120/70
--- NOTE | 2017-11-29 11:34 | ECHO ---
EXAM DATE: 11/22/17 PATIENT'S AGE: 66 The echocardiogram report can be seen in this patient's EMR (Electronic Medical Record) in the Reports section. The report has also been scanned into PACs. MAXWELL
== END 2017-11-25 12:30 | disposition home or self-care (01) ==
LOC: MW.ED 13:49 → MW.MS 17:12
PROVIDERS: ADMIT Internal Medicine; ATTEND Internal Medicine
DX: F45.8 Other somatoform disorders (principal); F41.0 Panic disorder [episodic paroxysmal anxiety]; R60.0 Localized edema; D50.9 Iron deficiency anemia, unspecified; I10 Essential (primary) hypertension; K21.9 Gastro-esophageal reflux disease without esophagitis; Z79.899 Other long term (current) drug therapy; Z88.1 Allergy status to other antibiotic agents; Z88.8 Allergy status to other drugs, medicaments and biological substances; Z91.041 Radiographic dye allergy status; Z91.040 Latex allergy status; Z88.2 Allergy status to sulfonamides
CPT/HCPCS: 36415; 36600; 71045; 71250; 78582; 80053; 80305; 81001; 82375; 82607; 82803; 83880; 84484; 85025; 85379; 85610; 87040; 93005; 93306; 93970; 94640; 94664; 96374; 96375; 99285; A9270; A9540; A9567; G0378; J1940; J2060; J2270; J2920; J3535-GY; J7620-GY

== ENCOUNTER 2017-11-29 11:39 | Observation (INO) | payer MEDICARE, OTHER ==
[2017-11-29] MEDS ORDERED: LORazepam 2 MG/ML SDV IVPUSH ONE (12:14)
[2017-11-29 13:00] LABS: CHLORIDE,CL 106 mmol/L (98-107); SODIUM,NA 141 mmol/L (136-145)
--- NOTE | 2017-11-29 13:27 | CR ---
EXAMINATION: PA chest radiograph. HISTORY: Shortness of breath. Comparison: CT dated 11/23/2017. FINDINGS: The trachea is midline. The cardiomediastinal silhouette is within normal limits. No pulmonary infilt rates, effusions or pneumothorax. Osseous structures appear unremarkable. IMPRESSION: No acute cardiopulmonary process.
--- NOTE | 2017-11-29 13:58 | EDM.PDOC ---
ED HPI GENERAL MEDICAL PROBLEM - General Chief Complaint: Respiratory Problem Stated Complaint: UNK ISSUES Time Seen by Provider: 11/29/17 13:55 Source of Information: Reports: Patient - History of Present Illness INITIAL COMMENTS - FREE TEXT/NARRATIVE: HISTORY AND PHYSICAL: History of present illness: []Patient presents with shortness of breath lightheaded and dizzy, she states with any ambulation she is significantly short of breath lightheaded and see spots occasionally At rest she is in no distress her vitals are completely normal, he did perform ambulatory O2 sats which remained normal at 95% She has had a recent hospital stay for similar complaint No fever nausea vomiting chills sweats no chest pain shortness breath headache dizziness or palpitation no bowel or urine symptoms well at restwhile at rest Review of systems: As per history of present illness and below otherwise all systems reviewed and negative. Past medical history: As per history of present illness and as reviewed below otherwise noncontributory. Surgical history: As per history of present illness and as reviewed below otherwise noncontributory. Social history: No reported history of drug or alcohol abuse. Family history: As per history of present illness and as reviewed below otherwise noncontributory. Physical exam: HEENT: Atraumatic, normocephalic, pupils reactive, negative for conjunctival pallor or scleral icterus, mucous membranes moist, throat clear, neck supple, nontender, trachea midline. Lungs: Clear to auscultation, breath sounds equal bilaterally, chest nontender. Heart: S1S2, regular, negative for clicks, rubs, or JVD. Abdomen: Soft, nondistended, nontender. Negative for masses or hepatosplenomegaly. Negative for costovertebral tenderness. Pelvis: Stable nontender. Genitourinary: Deferred. Rectal: Deferred. Extremities: Atraumatic, negative for cords or calf pain. Neurovascular unremarkable. Neuro: Awake, alert, oriented. Cranial nerves II through XII unremarkable. Cerebellum unremarkable. Motor and sensory unremarkable throughout. Exam nonfocal. Diagnostics: [CBC CMP UA troponin EKG Chest 1 view ] Therapeutics: [ Ativan 1 mg IV ] Impression: [ dyspnea Anemia Chronic history of baseline ] Definitive disposition and diagnosis as appropriate pending reevaluation and review of above. chest Pain Score (Numeric/FACES): 4 - Related Data Allergies Allergy/AdvReac Type Severity Reaction Status Date / Time divalproex sodium Allergy Shaking Verified 11/29/17 11:43 [From Depakote] erythromycin base Allergy Rash Verified 11/29/17 11:43 Iodine and Iodide Containing Allergy Seizure Verified 11/29/17 11:43 Produc latex Allergy Blisters Verified 11/29/17 11:43 paroxetine HCl [From Paxil] Allergy Seizure Verified 11/29/17 11:43 Penicillins Allergy Anaphylactic Verified 11/29/17 11:43 Shock Sulfa (Sulfonamide Allergy Rash Verified 11/29/17 11:43 Antibiotics) tolterodine tartrate Allergy Facial Verified 11/29/17 11:43 [From Detrol] Swelling Home Meds: Home Meds Omeprazole 40 mg PO DAILY 11/23/16 [History] Albuterol Sulfate [Proair Respiclick] 90 mcg INH QID PRN 11/22/17 [History] Diclofenac Epolamine [Flector] 8 g TOP DAILY 11/22/17 [History] Fesoterodine Fumarate [Toviaz] 8 mg PO DAILY 11/22/17 [History] Levocetirizine Dihydrochloride 5 mg PO DAILY 11/22/17 [History] Verapamil HCl [Verapamil ER PM] 300 mg PO DAILY 11/23/17 [History] LORazepam [Ativan] 1 mg PO BID 30 Days #60 tab 11/24/17 [Rx] QUEtiapine [SEROquel] 25 mg PO BEDTIME #30 tab 11/24/17 [Rx] Past Medical History - Past Health History Medical/Surgical History: Denies Medical/Surgical History HEENT History: Reports: Allergic Rhinitis, Cataract, Hard of Hearing Other HEENT History: wears glasses, has upper dentures Cardiovascular History: Reports: Hypertension Respiratory History: Reports: None Gastrointestinal History: Reports: Colon Polyp, GERD, PUD Other Gastrointestinal History: History of bleeding ulcer, current positive H- pylori test, Heartburn, Epigastric pain Genitourinary History: Reports: None LINE BUILDER History: Reports: None Musculoskeletal History: Reports: None Neurological History: Reports: Headaches, Chronic Psychiatric History: Reports: Anxiety, Bipolar, Depression Endocrine/Metabolic History: Reports: None Hematologic History: Reports: Blood Transfusion(s) Immunologic History: Reports: None Oncologic (Cancer) History: Reports: None Dermatologic History: Reports: None - Infectious Disease History Infectious Disease History: Reports: Chicken Pox, Measles - Past Surgical History Head Surgeries/Procedures: Reports: None HEENT Surgical History: Reports: None Cardiovascular Surgical History: Reports: None GI Surgical History: Reports: Bariatric Procedure, Cholecystectomy, Colonoscopy , EGD, Other (See Below) Other GI Surgeries/Procedures: Gastric Bypass Female Surgical History: Reports: Hysterectomy Endocrine Surgical History: Reports: None Neurological Surgical History: Reports: None Musculoskeletal Surgical History: Reports: None Oncologic Surgical History: Reports: None Dermatological Surgical History: Reports: None Social & Family History - Family History Family Medical History: Noncontributory - Tobacco Use Smoking Status *Q: Never Smoker - Caffeine Use Caffeine Use: Reports: Coffee - Recreational Drug Use Recreational Drug Use: No ED ROS GENERAL - Review of Systems Review Of Systems: See Below ED EXAM, GENERAL - Physical Exam Exam: See Below Course - Vital Signs Last Recorded V/S: Last Vital Signs Temp 97.7 F 11/29/17 11:46 Pulse 79 11/29/17 11:46 Resp 18 11/29/17 11:46 BP 153/98 H 11/29/17 11:46 Pulse Ox 100 11/29/17 11:46 - Orders/Labs/Meds Orders: Active Orders 24 hr Category Date Time Status UA W/MICROSCOPIC [URIN] Stat Lab 11/29/17 12:15 Ordered Labs: Laboratory Tests 11/29/17 11/29/17 11/29/17 Range/Units 11:59 11:59 12:15 WBC 4.50 (4.0-11.0) K/uL RBC 4.17 L (4.30-5.90) M/uL Hgb 9.9 L (12.0-16.0) g/dL Hct 32.0 L (36.0-46.0) % MCV 76.7 L (80.0-98.0) fL MCH 23.7 L (27.0-32.0) pg MCHC 30.9 L (31.0-37.0) g/dL RDW Std Deviation 47.1 (28.0-62.0) fl RDW Coeff of Steven 17 H (11.0-15.0) % Plt Count 222 (150-400) K/uL MPV 10.70 (7.40-12.00) fL Neut % (Auto) 49.5 (48.0-80.0) % Lymph % (Auto) 35.6 (16.0-40.0) % [place] % (Auto) 10.9 (0.0-15.0) % Eos % (Auto) 2.9 (0.0-7.0) % Baso % (Auto) 1.1 (0.0-1.5) % Neut # (Auto) 2.2 (1.4-5.7) K/uL Lymph # (Auto) 1.6 (0.6-2.4) K/uL [place] # (Auto) 0.5 (0.0-0.8) K/uL Eos # (Auto) 0.1 (0.0-0.7) K/uL Baso # (Auto) 0.1 (0.0-0.1) K/uL Nucleated RBC % 0.0 /100WBC Nucleated RBCs # 0 K/uL Sodium 141 (136-145) mmol/L Potassium 4.0 (3.5-5.1) mmol/L Chloride 106 (98-107) mmol/L Carbon Dioxide 26.3 (21.0-32.0) mmol/L BUN 16 (7.0-18.0) mg/dL Creatinine 1.0 (0.6-1.0) mg/dL Est Cr Clr Drug Dosing 48.43 mL/min Estimated GFR (MDRD) 55.6 ml/min Glucose 63 L (74-106) mg/dL Calcium 9.6 (8.5-10.1) mg/dL Total Bilirubin 0.3 (0.2-1.0) mg/dL AST 16 (15-37) IU/L ALT 25 (14-63) IU/L Alkaline Phosphatase 50 (46-116) U/L Troponin I < 0.050 (0.000-0.056) ng/mL Total Protein 6.4 (6.4-8.2) g/dL Albumin 3.5 (3.4-5.0) g/dL Globulin 2.9 (2.0-3.5) g/dL Albumin/Globulin Ratio 1.2 L (1.3-2.8) Urine Color YELLOW Urine Appearance CLEAR Urine pH 7.0 (5.0-8.0) Ur Specific [place] 1.010 (1.001-1.035) Urine Protein NEGATIVE (NEGATIVE) mg/dL Urine Glucose (UA) NEGATIVE (NEGATIVE) mg/dL Urine Ketones NEGATIVE (NEGATIVE) mg/dL Urine Occult Blood NEGATIVE (NEGATIVE) Urine Nitrite NEGATIVE (NEGATIVE) Urine Bilirubin NEGATIVE (NEGATIVE) Urine Urobilinogen 0.2 (<2.0) EU/dL Ur Leukocyte Esterase NEGATIVE (NEGATIVE) Urine RBC 0-1 (0-2/HPF) Urine WBC 0-1 (0-5/HPF) Ur Epithelial Cells RARE (NONE-FEW) Urine Bacteria RARE (NEGATIVE) Meds: Medications Discontinued Medications Generic Name Dose Route Start Last Admin Trade Name Freq PRN Reason Stop Dose Admin Lorazepam 1 mg 11/29/17 12:14 11/29/17 12:36 Ativan IVPUSH 11/29/17 12:15 1 mg ONETIME ONE Administration Departure - Departure Time of Disposition: 14:04 Disposition: Refer to Observation Condition: Fair Clinical Impression: Shortness of breath Anemia Qualifiers: Anemia type: iron deficiency - Discharge Information Referrals: PCP,Unknown [Primary Care Provider] - Forms: ED Department Discharge - My Orders Last 24 Hours: My Active Orders 11/29/17 12:15 UA W/MICROSCOPIC [URIN] Stat - Assessment/Plan Last 24 Hours: My Active Orders 11/29/17 12:15 UA W/MICROSCOPIC [URIN] Stat
[2017-11-29] MEDS ORDERED: Acetaminophen 325 MG Tab PO ONE (15:03)
[2017-11-29] MEDS ORDERED: Acetaminophen 325 MG Tab PO PRN (15:43)
[2017-11-29] MEDS ORDERED: Sodium Chloride 0.9% 10 ML Syringe FLUSH PRN (15:43)
[2017-11-29] MEDS ORDERED: Sodium Chloride 0.9% 2.5 ML Syringe FLUSH PRN (15:43)
[2017-11-29] MEDS ORDERED: Ondansetron 4 MG/2 ML SDV IVPUSH PRN (15:43)
[2017-11-29] MEDS ORDERED: Enoxaparin 40 MG/0.4 ML Syringe SUBCUT SCH (15:45)
--- NOTE | 2017-11-29 15:50 | PCM.HP ---
H&P History of Present Illness - General Date of Service: 11/29/17 Admit Problem/Dx: Admission Diagnosis/Problem Admission Diagnosis/Problem Shortness of breath Source of Information: Patient - History of Present Illness Initial Comments - Free Text/Narative: This is a 66-year-old female that is being admitted for concerns of shortness of breath and anxiety. Patient was recently admitted to our floor last week where she presented with similar symptoms and no clinically significant change from a respirator standpoint was appreciated and it was believed that likely the patient was suffering from anxiety and panic attack-type symptomatology, Dr. Headley had assess this patient and so the patient would need to be placed on Ativan 1 mg twice a day along with Seroquel 25 mg nightly. It appears that the similar situation has started to happen again with this patient as she is starting to have significant shortness of breath and tachypnea but with no clinically significant findings from a respiratory or infectious standpoint, an EKG was done that does not show any abnormal cardiac finding. Patient was given Ativan in the ED and on the floor prior to being assessed and does appear to be much more calmer at this point in time and likely this is psychosocial in nature once again. chest Pain Score (Numeric/FACES): 6 - Related Data Allergies/Adverse Reactions: Allergies Allergy/AdvReac Type Severity Reaction Status Date / Time divalproex sodium Allergy Shaking Verified 11/29/17 11:43 [From Depakote] erythromycin base Allergy Rash Verified 11/29/17 11:43 Iodine and Iodide Containing Allergy Seizure Verified 11/29/17 11:43 Produc latex Allergy Blisters Verified 11/29/17 11:43 paroxetine HCl [From Paxil] Allergy Seizure Verified 11/29/17 11:43 Penicillins Allergy Anaphylactic Verified 11/29/17 11:43 Shock Sulfa (Sulfonamide Allergy Rash Verified 11/29/17 11:43 Antibiotics) tolterodine tartrate Allergy Facial Verified 11/29/17 11:43 [From Detrol] Swelling Home Medications: Home Meds Omeprazole 40 mg PO DAILY 11/23/16 [History] Albuterol Sulfate [Proair Respiclick] 90 mcg INH QID PRN 11/22/17 [History] Diclofenac Epolamine [Flector] 8 g TOP DAILY 11/22/17 [History] Fesoterodine Fumarate [Toviaz] 8 mg PO DAILY 11/22/17 [History] Levocetirizine Dihydrochloride 5 mg PO DAILY 11/22/17 [History] Verapamil HCl [Verapamil ER PM] 300 mg PO DAILY 11/23/17 [History] LORazepam [Ativan] 1 mg PO BID 30 Days #60 tab 11/24/17 [Rx] QUEtiapine [SEROquel] 25 mg PO BEDTIME #30 tab 11/24/17 [Rx] Past Medical History - Past Health History Medical/Surgical History: Denies Medical/Surgical History HEENT History: Reports: Allergic Rhinitis, Cataract, Hard of Hearing Other HEENT History: wears glasses, has upper dentures Cardiovascular History: Reports: Hypertension Respiratory History: Reports: None Gastrointestinal History: Reports: Colon Polyp, GERD, PUD Other Gastrointestinal History: History of bleeding ulcer, current positive H- pylori test, Heartburn, Epigastric pain Genitourinary History: Reports: None [employer] History: Reports: None Musculoskeletal History: Reports: None Neurological History: Reports: Headaches, Chronic Psychiatric History: Reports: Anxiety, Bipolar, Depression Endocrine/Metabolic History: Reports: None Hematologic History: Reports: Blood Transfusion(s) Immunologic History: Reports: None Oncologic (Cancer) History: Reports: None Dermatologic History: Reports: None - Infectious Disease History Infectious Disease History: Reports: Chicken Pox, Measles - Past Surgical History Head Surgeries/Procedures: Reports: None HEENT Surgical History: Reports: None Cardiovascular Surgical History: Reports: None GI Surgical History: Reports: Bariatric Procedure, Cholecystectomy, Colonoscopy , EGD, Other (See Below) Other GI Surgeries/Procedures: Gastric Bypass Female Surgical History: Reports: Hysterectomy Endocrine Surgical History: Reports: None Neurological Surgical History: Reports: None Musculoskeletal Surgical History: Reports: None Oncologic Surgical History: Reports: None Dermatological Surgical History: Reports: None Social & Family History - Family History Family Medical History: Noncontributory - Tobacco Use Smoking Status *Q: Never Smoker Second Hand Smoke Exposure: No - Caffeine Use Caffeine Use: Reports: None - Recreational Drug Use Recreational Drug Use: No H&P Review of Systems - Review of Systems: Review Of Systems: ROS reveals no pertinent complaints other than HPI. Exam - Exam Exam: See Below - Vital Signs Vital Signs: Last Vital Signs Temp 35.7 C 11/29/17 14:42 Pulse 75 11/29/17 14:42 Resp 19 11/29/17 14:42 BP 164/100 H 11/29/17 14:42 Pulse Ox 100 11/29/17 14:42 Weight: 70.08 kg - Exam General: Alert, Oriented, Cooperative, Mild Distress (Anxiety in nature) HEENT: Conjunctiva Clear Neck: Supple Lungs: Clear to Auscultation, Normal Respiratory Effort Cardiovascular: Regular Rate, Regular Rhythm GI/Abdominal Exam: Normal Bowel Sounds Extremities: Normal Inspection, Normal Range of Motion - Patient Data Lab Results Last 24 hrs: Laboratory Results - last 24 hr 11/29/17 11/29/17 11/29/17 Range/Units 11:59 11:59 12:15 WBC 4.50 (4.0-11.0) K/uL RBC 4.17 L (4.30-5.90) M/uL Hgb 9.9 L (12.0-16.0) g/dL Hct 32.0 L (36.0-46.0) % MCV 76.7 L (80.0-98.0) fL MCH 23.7 L (27.0-32.0) pg MCHC 30.9 L (31.0-37.0) g/dL RDW Std Deviation 47.1 (28.0-62.0) fl RDW Coeff of Steven 17 H (11.0-15.0) % Plt Count 222 (150-400) K/uL MPV 10.70 (7.40-12.00) fL Neut % (Auto) 49.5 (48.0-80.0) % Lymph % (Auto) 35.6 (16.0-40.0) % [place] % (Auto) 10.9 (0.0-15.0) % Eos % (Auto) 2.9 (0.0-7.0) % Baso % (Auto) 1.1 (0.0-1.5) % Neut # (Auto) 2.2 (1.4-5.7) K/uL Lymph # (Auto) 1.6 (0.6-2.4) K/uL [place] # (Auto) 0.5 (0.0-0.8) K/uL Eos # (Auto) 0.1 (0.0-0.7) K/uL Baso # (Auto) 0.1 (0.0-0.1) K/uL Nucleated RBC % 0.0 /100WBC Nucleated RBCs # 0 K/uL Sodium 141 (136-145) mmol/L Potassium 4.0 (3.5-5.1) mmol/L Chloride 106 (98-107) mmol/L Carbon Dioxide 26.3 (21.0-32.0) mmol/L BUN 16 (7.0-18.0) mg/dL Creatinine 1.0 (0.6-1.0) mg/dL Est Cr Clr Drug Dosing 48.43 mL/min Estimated GFR (MDRD) 55.6 ml/min Glucose 63 L (74-106) mg/dL Calcium 9.6 (8.5-10.1) mg/dL Total Bilirubin 0.3 (0.2-1.0) mg/dL AST 16 (15-37) IU/L ALT 25 (14-63) IU/L Alkaline Phosphatase 50 (46-116) U/L Troponin I < 0.050 (0.000-0.056) ng/mL Total Protein 6.4 (6.4-8.2) g/dL Albumin 3.5 (3.4-5.0) g/dL Globulin 2.9 (2.0-3.5) g/dL Albumin/Globulin Ratio 1.2 L (1.3-2.8) Urine Color YELLOW Urine Appearance CLEAR Urine pH 7.0 (5.0-8.0) Ur Specific [place] 1.010 (1.001-1.035) Urine Protein NEGATIVE (NEGATIVE) mg/dL Urine Glucose (UA) NEGATIVE (NEGATIVE) mg/dL Urine Ketones NEGATIVE (NEGATIVE) mg/dL Urine Occult Blood NEGATIVE (NEGATIVE) Urine Nitrite NEGATIVE (NEGATIVE) Urine Bilirubin NEGATIVE (NEGATIVE) Urine Urobilinogen 0.2 (<2.0) EU/dL Ur Leukocyte Esterase NEGATIVE (NEGATIVE) Urine RBC 0-1 (0-2/HPF) Urine WBC 0-1 (0-5/HPF) Ur Epithelial Cells RARE (NONE-FEW) Urine Bacteria RARE (NEGATIVE) Result Diagrams: 11/29/17 11:59 11/29/17 11:59 Problem List Initiated/Reviewed/Updated: Yes Orders Last 24hrs: Active Orders 24 hr Category Date Time Status Admission Status [Patient Status] [ADT] Stat ADT 11/29/17 14:05 Active EKG 12 Lead [EKG Documentation Completion] [RC] STAT Care 11/29/17 11:30 Active EKG 12 Lead [EKG Documentation Completion] [RC] STAT Care 11/29/17 15:03 Active Height and Weight [RC] UPON Care 11/29/17 15:43 Active Intake and Output [RC] QSHIFT Care 11/29/17 15:43 Active Oxygen Therapy [RC] PRN Care 11/29/17 15:43 Active Pulse Oximetry [RC] CONTINUOUS Care 11/29/17 15:43 Active Up With Assistance [RC] ASDIRECTED Care 11/29/17 15:43 Active VTE/DVT Education [RC] PER UNIT ROUTINE Care 11/29/17 15:43 Active Vital Signs [RC] Q4H Care 11/29/17 15:43 Active Regular Diet [DIET] Diet 11/29/17 Breakfast Active BASIC METABOLIC PANEL,BMP [CHEM] AM Lab 11/30/17 05:11 Ordered CBC WITH AUTO DIFF [HEME] AM Lab 11/30/17 05:11 Ordered UA W/MICROSCOPIC [URIN] Stat Lab 11/29/17 12:15 Ordered Acetaminophen [Tylenol] Med 11/29/17 15:43 Ordered 650 mg PO Q4H PRN Enoxaparin [Lovenox] Med 11/29/17 15:45 Ordered 40 mg SUBCUT Q24H Fesoterodine Fumarate [Toviaz] Med 11/30/17 09:00 Ordered 8 mg PO DAILY LORazepam [Ativan] Med 11/29/17 15:45 Ordered 1 mg PO BID Levocetirizine Dihydrochloride [Levocetirizine Med 11/30/17 09:00 Ordered Dihydrochloride] 5 mg PO DAILY Omeprazole [Omeprazole] Med 11/30/17 09:00 Ordered 40 mg PO DAILY Ondansetron [Zofran] Med 11/29/17 15:43 Ordered 4 mg IVPUSH Q4H PRN QUEtiapine [SEROquel] Med 11/29/17 21:00 Ordered 25 mg PO BEDTIME Sodium Chloride 0.9% [Saline Flush] Med 11/29/17 15:43 Ordered 10 ml FLUSH ASDIRECTED PRN Sodium Chloride 0.9% [Saline Flush] Med 11/29/17 15:43 Ordered 2.5 ml FLUSH ASDIRECTED PRN Verapamil HCl [Verapamil ER PM] Med 11/30/17 09:00 Ordered 300 mg PO DAILY Peripheral IV Insertion Adult [OM.PC] Routine Oth 11/29/17 15:43 Ordered Saline Lock Insert [OM.PC] Routine Oth 11/29/17 15:43 Ordered Medication Orders Acetaminophen (Tylenol) 650 mg PO Q4H PRN PRN Reason: Pain (Mild 1-3)/fever Enoxaparin Sodium (Lovenox) 40 mg SUBCUT Q24H [facility] Lorazepam (Ativan) 1 mg PO BID [facility] Non-Formulary Medication (Fesoterodine Fumarate [Toviaz]) 8 mg PO DAILY [facility] Non-Formulary Medication (Levocetirizine Dihydrochloride [Levocetirizine Dihydrochloride]) 5 mg PO DAILY [facility] Non-Formulary Medication (Omeprazole [Omeprazole]) 40 mg PO DAILY [facility] Non-Formulary Medication (Verapamil Hcl [Verapamil Er Pm]) 300 mg PO DAILY [facility] Ondansetron HCl (Zofran) 4 mg IVPUSH Q4H PRN PRN Reason: Nausea/Vomiting Quetiapine Fumarate (Seroquel) 25 mg PO BEDTIME [facility] Sodium Chloride (Saline Flush) 10 ml FLUSH ASDIRECTED PRN PRN Reason: Keep Vein Open Sodium Chloride (Saline Flush) 2.5 ml FLUSH ASDIRECTED PRN PRN Reason: Keep Vein Open Assessment/Plan Comment:: This is a 66-year-old female that is presenting with tachypnea and shortness of breath with a significant history of anxiety most likely etiology is psychological in nature likely an anxiety/panic attack however we will ensure to rule out other etiologies including from a respiratory standpoint as well as an infectious and cardiology standpoint. -Labs including CBC, CMP, UA, imaging including chest x-ray, EKG - Patient to be started on her dose of Ativan 1 mg twice a day along with Seroquel
[2017-11-29] MEDS: LORazepam 1 MG Tab PO SCH ×2 (15:57→20:48)
[2017-11-29] MEDS ORDERED: QUEtiapine 25 MG Tab PO SCH (21:00)
[2017-11-30 05:58] LABS: CHLORIDE,CL 110 mmol/L (98-107); SODIUM,NA 142 mmol/L (136-145)
[2017-11-30] MEDS ORDERED: Omeprazole 20 MG Cap.CR PO SCH (07:30)
[2017-11-30 08:45] VITALS: BP 122/74
[2017-11-30] MEDS: LORazepam 1 MG Tab PO SCH (08:47)
[2017-11-30] MEDS ORDERED: LEVOCETIRIZINE 5 MG PO SCH (09:00)
[2017-11-30] MEDS ORDERED: VERAPAMIL 300 MG PO SCH (09:00)
[2017-11-30] MEDS ORDERED: TOVIAZ 8 MG PO SCH (09:00)
--- NOTE | 2017-11-30 10:49 | PCM.DCSUM1 ---
Discharge Summary - Discharge Data Discharge Disposition: Home, Self-Care 01 Condition: Stable - Discharge Plan Home Medications: Home Meds Omeprazole 40 mg PO DAILY 11/23/16 [History] Albuterol Sulfate [Proair Respiclick] 90 mcg INH QID PRN 11/22/17 [History] Diclofenac Epolamine [Flector] 8 g TOP DAILY 11/22/17 [History] Fesoterodine Fumarate [Toviaz] 8 mg PO DAILY 11/22/17 [History] Levocetirizine Dihydrochloride 5 mg PO DAILY 11/22/17 [History] Verapamil HCl [Verapamil ER PM] 300 mg PO DAILY 11/23/17 [History] LORazepam [Ativan] 1 mg PO BID 30 Days #60 tab 11/24/17 [Rx] QUEtiapine [SEROquel] 25 mg PO BEDTIME #30 tab 11/24/17 [Rx] Referrals: Radha Rizzo NP [Ordering Only Provider] - Gwendolyn Parra DO [Physician] - - Patient Data Vitals - Most Recent: Last Vital Signs Temp 36.4 C 11/30/17 08:44 Pulse 80 11/30/17 05:50 Resp 16 11/30/17 08:44 BP 122/74 11/30/17 08:44 Pulse Ox 94 L 11/30/17 08:44 Weight - Most Recent: 70.08 kg I&O - Last 24 hours: Intake & Output 11/29/17 11/30/17 11/30/17 22:59 06:59 14:59 Intake Total 100 200 Output Total 400 500 Balance -300 -300 Lab Results - Last 24 hrs: Laboratory Results - last 24 hr 11/29/17 11/29/17 11/29/17 Range/Units 11:59 11:59 12:15 WBC 4.50 (4.0-11.0) K/uL RBC 4.17 L (4.30-5.90) M/uL Hgb 9.9 L (12.0-16.0) g/dL Hct 32.0 L (36.0-46.0) % MCV 76.7 L (80.0-98.0) fL MCH 23.7 L (27.0-32.0) pg MCHC 30.9 L (31.0-37.0) g/dL RDW Std Deviation 47.1 (28.0-62.0) fl RDW Coeff of Steven 17 H (11.0-15.0) % Plt Count 222 (150-400) K/uL MPV 10.70 (7.40-12.00) fL Neut % (Auto) 49.5 (48.0-80.0) % Lymph % (Auto) 35.6 (16.0-40.0) % Cook % (Auto) 10.9 (0.0-15.0) % Eos % (Auto) 2.9 (0.0-7.0) % Baso % (Auto) 1.1 (0.0-1.5) % Neut # (Auto) 2.2 (1.4-5.7) K/uL Lymph # (Auto) 1.6 (0.6-2.4) K/uL Cook # (Auto) 0.5 (0.0-0.8) K/uL Eos # (Auto) 0.1 (0.0-0.7) K/uL Baso # (Auto) 0.1 (0.0-0.1) K/uL Nucleated RBC % 0.0 /100WBC Nucleated RBCs # 0 K/uL Sodium 141 (136-145) mmol/L Potassium 4.0 (3.5-5.1) mmol/L Chloride 106 (98-107) mmol/L Carbon Dioxide 26.3 (21.0-32.0) mmol/L BUN 16 (7.0-18.0) mg/dL Creatinine 1.0 (0.6-1.0) mg/dL Est Cr Clr Drug Dosing 48.43 mL/min Estimated GFR (MDRD) 55.6 ml/min Glucose 63 L (74-106) mg/dL Calcium 9.6 (8.5-10.1) mg/dL Total Bilirubin 0.3 (0.2-1.0) mg/dL AST 16 (15-37) IU/L ALT 25 (14-63) IU/L Alkaline Phosphatase 50 (46-116) U/L Troponin I < 0.050 (0.000-0.056) ng/mL Total Protein 6.4 (6.4-8.2) g/dL Albumin 3.5 (3.4-5.0) g/dL Globulin 2.9 (2.0-3.5) g/dL Albumin/Globulin Ratio 1.2 L (1.3-2.8) Urine Color YELLOW Urine Appearance CLEAR Urine pH 7.0 (5.0-8.0) Ur Specific [place] 1.010 (1.001-1.035) Urine Protein NEGATIVE (NEGATIVE) mg/dL Urine Glucose (UA) NEGATIVE (NEGATIVE) mg/dL Urine Ketones NEGATIVE (NEGATIVE) mg/dL Urine Occult Blood NEGATIVE (NEGATIVE) Urine Nitrite NEGATIVE (NEGATIVE) Urine Bilirubin NEGATIVE (NEGATIVE) Urine Urobilinogen 0.2 (<2.0) EU/dL Ur Leukocyte Esterase NEGATIVE (NEGATIVE) Urine RBC 0-1 (0-2/HPF) Urine WBC 0-1 (0-5/HPF) Ur Epithelial Cells RARE (NONE-FEW) Urine Bacteria RARE (NEGATIVE) 11/30/17 11/30/17 Range/Units 05:20 05:20 WBC 4.04 (4.0-11.0) K/uL RBC 4.22 L (4.30-5.90) M/uL Hgb 10.1 L (12.0-16.0) g/dL Hct 32.4 L (36.0-46.0) % MCV 76.8 L (80.0-98.0) fL MCH 23.9 L (27.0-32.0) pg MCHC 31.2 (31.0-37.0) g/dL RDW Std Deviation 47.6 (28.0-62.0) fl RDW Coeff of Steven 17 H (11.0-15.0) % Plt Count 225 (150-400) K/uL MPV 10.70 (7.40-12.00) fL Neut % (Auto) 45.7 L (48.0-80.0) % Lymph % (Auto) 39.9 (16.0-40.0) % [place] % (Auto) 9.7 (0.0-15.0) % Eos % (Auto) 3.7 (0.0-7.0) % Baso % (Auto) 1.0 (0.0-1.5) % Neut # (Auto) 1.9 (1.4-5.7) K/uL Lymph # (Auto) 1.6 (0.6-2.4) K/uL [place] # (Auto) 0.4 (0.0-0.8) K/uL Eos # (Auto) 0.2 (0.0-0.7) K/uL Baso # (Auto) 0.0 (0.0-0.1) K/uL Nucleated RBC % 0.0 /100WBC Nucleated RBCs # 0 K/uL Sodium 142 (136-145) mmol/L Potassium 4.2 (3.5-5.1) mmol/L Chloride 110 H (98-107) mmol/L Carbon Dioxide 28.3 (21.0-32.0) mmol/L BUN 16 (7.0-18.0) mg/dL Creatinine 0.8 (0.6-1.0) mg/dL Est Cr Clr Drug Dosing 60.54 mL/min Estimated GFR (MDRD) > 60.0 ml/min Glucose 73 L (74-106) mg/dL Calcium 8.8 (8.5-10.1) mg/dL Total Bilirubin (0.2-1.0) mg/dL AST (15-37) IU/L ALT (14-63) IU/L Alkaline Phosphatase (46-116) U/L Troponin I (0.000-0.056) ng/mL Total Protein (6.4-8.2) g/dL Albumin (3.4-5.0) g/dL Globulin (2.0-3.5) g/dL Albumin/Globulin Ratio (1.3-2.8) Urine Color Urine Appearance Urine pH (5.0-8.0) Ur Specific [place] (1.001-1.035) Urine Protein (NEGATIVE) mg/dL Urine Glucose (UA) (NEGATIVE) mg/dL Urine Ketones (NEGATIVE) mg/dL Urine Occult Blood (NEGATIVE) Urine Nitrite (NEGATIVE) Urine Bilirubin (NEGATIVE) Urine Urobilinogen (<2.0) EU/dL Ur Leukocyte Esterase (NEGATIVE) Urine RBC (0-2/HPF) Urine WBC (0-5/HPF) Ur Epithelial Cells (NONE-FEW) Urine Bacteria (NEGATIVE) Med Orders - Current: Current Medications Acetaminophen (Tylenol) 650 mg PO Q4H PRN PRN Reason: Pain (Mild 1-3)/fever Enoxaparin Sodium (Lovenox) 40 mg SUBCUT Q24H [facility] Last Admin: 11/29/17 16:14 Dose: 40 mg Lorazepam (Ativan) 1 mg PO BID [facility] Last Admin: 11/30/17 08:47 Dose: 1 mg Omeprazole (Omeprazole) 40 mg PO ACBREAKFAST [facility] Last Admin: 11/30/17 06:45 Dose: 40 mg Ondansetron HCl (Zofran) 4 mg IVPUSH Q4H PRN PRN Reason: Nausea/Vomiting Last Admin: 11/29/17 20:43 Dose: 4 mg Toviaz 8 Mg 1 each PO DAILY [facility] Last Admin: 11/30/17 08:47 Dose: 1 each Levocetirizine 5 Mg 1 each PO DAILY [facility] Last Admin: 11/30/17 08:47 Dose: 1 each Verapamil 300 Mg 1 each PO DAILY [facility] Last Admin: 11/30/17 08:47 Dose: 1 each Quetiapine Fumarate (Seroquel) 25 mg PO BEDTIME [facility] Last Admin: 11/29/17 20:48 Dose: 25 mg Sodium Chloride (Saline Flush) 10 ml FLUSH ASDIRECTED PRN PRN Reason: Keep Vein Open Sodium Chloride (Saline Flush) 2.5 ml FLUSH ASDIRECTED PRN PRN Reason: Keep Vein Open Discontinued Medications Acetaminophen (Tylenol) 650 mg PO STAT ONE Stop: 11/29/17 15:04 Last Admin: 11/29/17 15:26 Dose: 650 mg Lorazepam (Ativan) 1 mg IVPUSH ONETIME ONE Stop: 11/29/17 12:15 Last Admin: 11/29/17 12:36 Dose: 1 mg
== END 2017-11-30 13:45 | disposition home or self-care (01) ==
LOC: MW.ED 11:39 → MW.MS 14:05
PROVIDERS: ADMIT Internal Medicine; ATTEND Internal Medicine
DX: R06.02 Shortness of breath (principal); I10 Essential (primary) hypertension; K21.9 Gastro-esophageal reflux disease without esophagitis; F41.9 Anxiety disorder, unspecified; F31.9 Bipolar disorder, unspecified; Z79.899 Other long term (current) drug therapy; Z88.1 Allergy status to other antibiotic agents; Z88.2 Allergy status to sulfonamides; Z88.8 Allergy status to other drugs, medicaments and biological substances; Z91.040 Latex allergy status; Z91.041 Radiographic dye allergy status
CPT/HCPCS: 36415; 71045; 80048; 80053; 81001; 84484; 85025; 93005; 96372; 96374; 96375; 99285; A9270; G0378; J1650; J2060; J2405

== ENCOUNTER 2018-09-07 13:24 | Observation (INO) | payer MEDICARE, OTHER ==
[2018-09-07] MEDS ORDERED: Sodium Chloride 0.9% 2.5 ML Syringe FLUSH PRN (13:49)
[2018-09-07] MEDS ORDERED: Sodium Chloride 0.9% 10 ML Syringe FLUSH PRN (13:49)
--- NOTE | 2018-09-07 13:49 | EDM.PDOC ---
ED HPI GENERAL MEDICAL PROBLEM - General Chief Complaint: Chest Pain Stated Complaint: CHEST PAIN Time Seen by Provider: 09/07/18 13:41 Source of Information: Reports: Patient History Limitations: Reports: No Limitations - History of Present Illness INITIAL COMMENTS - FREE TEXT/NARRATIVE: History of present illness: []Patient was playing cards approximately 1 hour ago and developed nonradiating left sided sharp-pressure pain with shortness of breath. Patient states that she is being followed by Dr. Guzman but has not had her stress test as of yet. Patient also has a history of anxiety. Review of systems: As per history of present illness and below otherwise all systems reviewed and negative. Past medical history: As per history of present illness and as reviewed below otherwise noncontributory. Surgical history: As per history of present illness and as reviewed below otherwise noncontributory. Social history: No reported history of drug or alcohol abuse. Family history: As per history of present illness and as reviewed below otherwise noncontributory. Physical exam: General: Well developed, well nourished in NAD HEENT: Atraumatic, normocephalic, pupils reactive, negative for conjunctival pallor or scleral icterus, mucous membranes moist, throat clear, neck supple, nontender, trachea midline. Lungs: Clear to auscultation, breath sounds equal bilaterally, chest nontender. Heart: S1S2, regular, negative for clicks, rubs, or JVD. Abdomen: NABS, Soft, nondistended, nontender. Negative for masses or hepatosplenomegaly. Negative for costovertebral tenderness. Pelvis: Stable nontender. Genitourinary: Deferred. Rectal: Deferred. Extremities: Atraumatic, negative for cords or calf pain. Neurovascular unremarkable. Neuro: Awake, alert, oriented. Cranial nerves II through XII unremarkable. Cerebellum unremarkable. Motor and sensory unremarkable throughout. Exam nonfocal. Skin:warm and dry Diagnostics: EKG, CBC, chemistry, troponin, chest x-ray Therapeutics: Aspirin, nitroglycerin ED Course: Stable Impression: Chest pain Prescriptions: None Plan: Admit for chest pain and further workup. Definitive disposition and diagnosis as appropriate pending reevaluation and review of above. chest Pain Score (Numeric/FACES): 8 - Related Data Allergies Allergy/AdvReac Type Severity Reaction Status Date / Time divalproex sodium Allergy Shaking Verified 02/17/18 21:28 [From Depakote] erythromycin base Allergy Rash Verified 02/17/18 21:28 Iodine and Iodide Containing Allergy Seizure Verified 02/17/18 21:28 Produc latex Allergy Blisters Verified 02/17/18 21:28 paroxetine HCl [From Paxil] Allergy Seizure Verified 02/17/18 21:28 Penicillins Allergy Anaphylactic Verified 02/17/18 21:28 Shock Sulfa (Sulfonamide Allergy Rash Verified 02/17/18 21:28 Antibiotics) tolterodine tartrate Allergy Facial Verified 02/17/18 21:28 [From Detrol] Swelling Home Meds: Home Meds Omeprazole 2 cap PO DAILY 11/23/16 [History] Albuterol Sulfate [Proair Respiclick] 90 mcg INH QID PRN 11/22/17 [History] Fesoterodine Fumarate [Toviaz] 1 tab PO DAILY 11/22/17 [History] Levocetirizine Dihydrochloride 1 tab PO DAILY 11/22/17 [History] Verapamil HCl [Verapamil ER PM] 1 cap PO DAILY 11/23/17 [History] Diclofenac Sodium [Voltaren 1% Gel] 1 unit TOP ASDIRECTED PRN 02/17/18 [History] Ipratropium [place] 1 intlu NASBOTH DAILY 02/17/18 [History] Meloxicam 1 tab PO DAILY 02/17/18 [History] Nitroglycerin 09/07/18 [History] Past Medical History - Past Health History Medical/Surgical History: Denies Medical/Surgical History HEENT History: Reports: Allergic Rhinitis, Cataract, Hard of Hearing Other HEENT History: wears glasses, has upper dentures Cardiovascular History: Reports: Hypertension Respiratory History: Reports: None Gastrointestinal History: Reports: Colon Polyp, GERD, PUD Other Gastrointestinal History: History of bleeding ulcer, current positive H- pylori test, Heartburn, Epigastric pain Genitourinary History: Reports: None [employer] History: Reports: None Musculoskeletal History: Reports: None Neurological History: Reports: Headaches, Chronic Psychiatric History: Reports: Anxiety, Bipolar, Depression Endocrine/Metabolic History: Reports: None Hematologic History: Reports: Blood Transfusion(s) Immunologic History: Reports: None Oncologic (Cancer) History: Reports: None Dermatologic History: Reports: None - Infectious Disease History Infectious Disease History: Reports: Chicken Pox, Measles - Past Surgical History Head Surgeries/Procedures: Reports: None HEENT Surgical History: Reports: None Cardiovascular Surgical History: Reports: None GI Surgical History: Reports: Bariatric Procedure, Cholecystectomy, Colonoscopy , EGD, Other (See Below) Other GI Surgeries/Procedures: Gastric Bypass Female Surgical History: Reports: Hysterectomy Endocrine Surgical History: Reports: None Neurological Surgical History: Reports: None Musculoskeletal Surgical History: Reports: None Oncologic Surgical History: Reports: None Dermatological Surgical History: Reports: None Social & Family History - Family History Family Medical History: Noncontributory - Tobacco Use Smoking Status *Q: Never Smoker - Caffeine Use Caffeine Use: Reports: None - Recreational Drug Use Recreational Drug Use: No ED ROS GENERAL - Review of Systems Review Of Systems: ROS reveals no pertinent complaints other than HPI. ED EXAM, GENERAL - Physical Exam Exam: See Below Course - Vital Signs Last Recorded V/S: Last Vital Signs Temp Pulse 76 09/07/18 14:44 Resp 18 09/07/18 14:44 BP 128/80 09/07/18 14:44 Pulse Ox 97 09/07/18 14:44 - Orders/Labs/Meds Orders: Active Orders 24 hr Category Date Time Status Patient Status [ADT] Routine ADT 09/07/18 14:42 Active Cardiac Monitoring [RC] CONTINUOUS Care 09/07/18 14:43 Inactive Oxygen Therapy [RC] PRN Care 09/07/18 14:42 Active RT Aerosol Therapy [RC] ASDIRECTED Care 09/07/18 14:44 Active VTE/DVT Education [RC] PER UNIT ROUTINE Care 09/07/18 14:42 Active Vital Signs [RC] Q4H Care 09/07/18 14:42 Active Heart Healthy Diet [DIET] Diet 09/07/18 Dinner Active BASIC METABOLIC PANEL,BMP [CHEM] AM Lab 09/08/18 05:11 Ordered CBC WITH AUTO DIFF [HEME] AM Lab 09/08/18 05:11 Ordered Acetaminophen [Tylenol] Med 09/07/18 14:42 Active 650 mg PO Q4H PRN Albuterol/Ipratropium [DuoNeb 3.0-0.5 MG/3 ML] Med 09/07/18 14:42 Active 3 ml NEB Q4HRRT PRN Docusate Sodium [Colace] Med 09/07/18 14:42 Active 100 mg PO BID PRN Enoxaparin [Lovenox] Med 09/07/18 14:45 Active 30 mg SUBCUT Q24H Sodium Chloride 0.9% [Saline Flush] Med 09/07/18 13:49 Active 10 ml FLUSH ASDIRECTED PRN Sodium Chloride 0.9% [Saline Flush] Med 09/07/18 13:49 Active 2.5 ml FLUSH ASDIRECTED PRN Temazepam [Restoril] Med 09/07/18 14:42 Active 15 mg PO BEDTIME PRN oxyCODONE Med 09/07/18 14:42 Active 5 mg PO Q4H PRN Saline Lock Insert [OM.PC] Stat Oth 09/07/18 13:49 Ordered Resuscitation Status Routine Resus Stat 09/07/18 14:42 Ordered Medication Orders Acetaminophen (Tylenol) 650 mg PO Q4H PRN PRN Reason: Pain (Mild 1-3)/fever Albuterol/Ipratropium (Duoneb 3.0-0.5 Mg/3 Ml) 3 ml NEB Q4HRRT PRN PRN Reason: Shortness Of Breath/wheezing Docusate Sodium (Colace) 100 mg PO BID PRN PRN Reason: Constipation Enoxaparin Sodium (Lovenox) 30 mg SUBCUT Q24H MICKY Lorazepam (Ativan) 0.5 mg PO BID PRN PRN Reason: Anxiety Oxycodone HCl (Oxycodone) 5 mg PO Q4H PRN PRN Reason: Pain (moderate 4-6) Potassium Chloride (Potassium Chloride) 40 meq PO ONETIME ONE Stop: 09/07/18 17:31 Sodium Chloride (Saline Flush) 10 ml FLUSH ASDIRECTED PRN PRN Reason: Keep Vein Open Last Admin: 09/07/18 14:42 Dose: 10 ml Sodium Chloride (Saline Flush) 2.5 ml FLUSH ASDIRECTED PRN PRN Reason: Keep Vein Open Last Admin: 09/07/18 14:43 Dose: 2.5 ml Temazepam (Restoril) 15 mg PO BEDTIME PRN PRN Reason: Sleep Labs: Laboratory Tests 09/07/18 09/07/18 09/07/18 Range/Units 13:47 13:47 13:47 WBC 6.88 (4.0-11.0) K/uL RBC 4.48 (4.30-5.90) M/uL Hgb 13.3 (12.0-16.0) g/dL Hct 40.2 (36.0-46.0) % MCV 89.7 (80.0-98.0) fL MCH 29.7 (27.0-32.0) pg MCHC 33.1 (31.0-37.0) g/dL RDW Std Deviation 45.0 (28.0-62.0) fl RDW Coeff of Steven 14 (11.0-15.0) % Plt Count 255 (150-400) K/uL MPV 10.90 (7.40-12.00) fL Neut % (Auto) 63.1 (48.0-80.0) % Lymph % (Auto) 20.3 (16.0-40.0) % Howell % (Auto) 12.1 (0.0-15.0) % Eos % (Auto) 3.8 (0.0-7.0) % Baso % (Auto) 0.7 (0.0-1.5) % Neut # (Auto) 4.3 (1.4-5.7) K/uL Lymph # (Auto) 1.4 (0.6-2.4) K/uL Howell # (Auto) 0.8 (0.0-0.8) K/uL Eos # (Auto) 0.3 (0.0-0.7) K/uL Baso # (Auto) 0.1 (0.0-0.1) K/uL Nucleated RBC % 0.0 /100WBC Nucleated RBCs # 0 K/uL Sodium 139 (136-145) mmol/L Potassium 3.0 L (3.5-5.1) mmol/L Chloride 107 (98-107) mmol/L Carbon Dioxide 24.4 (21.0-32.0) mmol/L BUN 20 H (7.0-18.0) mg/dL Creatinine 0.9 (0.6-1.0) mg/dL Est Cr Clr Drug Dosing 50.86 mL/min Estimated GFR (MDRD) > 60.0 ml/min Glucose 89 (74-106) mg/dL Calcium 9.9 (8.5-10.1) mg/dL Magnesium 1.8 (1.8-2.4) mg/dL Total Bilirubin 0.4 (0.2-1.0) mg/dL AST 20 (15-37) IU/L ALT 27 (14-63) IU/L Alkaline Phosphatase 72 (46-116) U/L Troponin I < 0.050 (0.000-0.056) ng/mL Total Protein 6.8 (6.4-8.2) g/dL Albumin 3.7 (3.4-5.0) g/dL Globulin 3.1 (2.6-4.0) g/dL Albumin/Globulin Ratio 1.2 (0.9-1.6) Meds: Medications Generic Name Dose Route Start Last Admin Trade Name Freq PRN Reason Stop Dose Admin Acetaminophen 650 mg 09/07/18 14:42 Tylenol PO Q4H PRN Pain (Mild 1-3)/fever Albuterol/Ipratropium 3 ml 09/07/18 14:42 Duoneb 3.0-0.5 Mg/3 Ml NEB Q4HRRT PRN Shortness Of Breath/wheezing Docusate Sodium 100 mg 09/07/18 14:42 Colace PO BID PRN Constipation Enoxaparin Sodium 30 mg 09/07/18 14:45 Lovenox SUBCUT Q24H MICKY Lorazepam 0.5 mg 09/07/18 15:24 Ativan PO BID PRN Anxiety Oxycodone HCl 5 mg 09/07/18 14:42 Oxycodone PO Q4H PRN Pain (moderate 4-6) Potassium Chloride 40 meq 09/07/18 17:30 Potassium Chloride PO 09/07/18 17:31 ONETIME ONE Sodium Chloride 10 ml 09/07/18 13:49 09/07/18 14:42 Saline Flush FLUSH 10 ml ASDIRECTED PRN Administration Keep Vein Open Sodium Chloride 2.5 ml 09/07/18 13:49 09/07/18 14:43 Saline Flush FLUSH 2.5 ml ASDIRECTED PRN Administration Keep Vein Open Temazepam 15 mg 09/07/18 14:42 Restoril PO BEDTIME PRN Sleep Discontinued Medications Generic Name Dose Route Start Last Admin Trade Name Freq PRN Reason Stop Dose Admin Potassium Chloride 40 meq 09/07/18 14:20 09/07/18 14:43 Klor-Con M20 PO 09/07/18 14:21 40 meq ONETIME ONE Administration Departure - Departure Time of Disposition: 15:33 Disposition: Refer to Observation Condition: Good Clinical Impression: Chest pain Qualifiers: Chest pain type: unspecified Qualified Code(s): R07.9 - Chest pain, unspecified - My Orders Last 24 Hours: My Active Orders 09/07/18 13:49 Sodium Chloride 0.9% [Saline Flush] 10 ml FLUSH ASDIRECTED PRN Sodium Chloride 0.9% [Saline Flush] 2.5 ml FLUSH ASDIRECTED PRN Saline Lock Insert [OM.PC] Stat - Assessment/Plan Last 24 Hours: My Active Orders 09/07/18 13:49 Sodium Chloride 0.9% [Saline Flush] 10 ml FLUSH ASDIRECTED PRN Sodium Chloride 0.9% [Saline Flush] 2.5 ml FLUSH ASDIRECTED PRN Saline Lock Insert [OM.PC] Stat
[2018-09-07 14:18] LABS: CHLORIDE,CL 107 mmol/L (98-107); SODIUM,NA 139 mmol/L (136-145)
[2018-09-07] MEDS ORDERED: Potassium Chloride 20 MEQ Tab.ER PO ONE (14:20)
[2018-09-07] MEDS ORDERED: Temazepam 15 MG Cap PO PRN (14:42)
[2018-09-07] MEDS ORDERED: oxyCODONE 5 MG Tab PO PRN (14:42)
[2018-09-07] MEDS ORDERED: Docusate Sodium 100 MG Cap PO PRN (14:42)
[2018-09-07] MEDS ORDERED: Albuterol/Ipratropium 3.0-0.5 MG/3 ML Neb Soln NEB PRN (14:42)
--- NOTE | 2018-09-07 14:42 | CR ---
EXAMINATION: Portable chest radiograph. HISTORY: Shortness of breath. Comparison: 02/17/2018 FINDINGS: The trachea is midline. The cardiomediastinal silhouette is within normal limits. No pulmonary infiltrates, effusions or pneumothorax. Osseous structures appear unremarkable. IMPRESSION: No acute cardiopulmonary process.
[2018-09-07] MEDS ORDERED: Enoxaparin 30 MG/0.3 ML Syringe SUBCUT SCH (14:45)
--- NOTE | 2018-09-07 15:12 | PCM.HP ---
<Dalia Cordoba M - Last Filed: 09/07/18 15:06> H&P History of Present Illness - General Date of Service: 09/07/18 Admit Problem/Dx: Admission Diagnosis/Problem Admission Diagnosis/Problem Chest pain syndrome Source of Information: Patient, Old Records History Limitations: Reports: No Limitations - History of Present Illness Initial Comments - Free Text/Narative: This 67 year old female with pmh of HTN, PTSD and anxiety presented to the ED after experience chest pain x 1 hr while she was playing cards. She reports typically her chest pain is with activity, this time she was sitting still. The pain is midsternal and caused shortness of breath. She took a SL nitro, which did NOT help the pain. So she sought medical help in ED. She reports she gets short of breath with any activity and isn't able to do much without becoming short of breath. She reports she works for [employer] in [employer], so at time her job is physically demanding. She has been evaluated by many providers, included Dr Garcia, but she has continued to not make multiple appointments for ECHOs and stress tests. She was admitted 1 year ago under very similar circumstances, she was evaluated by Telepysch Dr Headley, who recommended Seroquel and Ativan. She stopped the Seroquel it made her groggy in the morning. Reports still taking Ativan. She denies any tobacco or alcohol use. In the ED CBC WNL, K+ 3.0. Troponin negative. EKG SR with minimal ST depression , no change from previous EKGs. VS Stable. CXR negative. She will be admitted for chest pain rule out ASC. PCP, Dr Parra chest Pain Score (Numeric/FACES): 8 - Related Data Allergies/Adverse Reactions: Allergies Allergy/AdvReac Type Severity Reaction Status Date / Time divalproex sodium Allergy Shaking Verified 09/07/18 15:44 [From Depakote] erythromycin base Allergy Rash Verified 09/07/18 15:44 Iodine and Iodide Containing Allergy Seizure Verified 09/07/18 15:44 Produc latex Allergy Blisters Verified 09/07/18 15:44 paroxetine HCl [From Paxil] Allergy Seizure Verified 09/07/18 15:44 Penicillins Allergy Anaphylactic Verified 09/07/18 15:44 Shock Sulfa (Sulfonamide Allergy Rash Verified 09/07/18 15:44 Antibiotics) tolterodine tartrate Allergy Facial Verified 09/07/18 15:44 [From Detrol] Swelling Home Medications: Home Meds Omeprazole 2 cap PO DAILY 11/23/16 [History] Levocetirizine Dihydrochloride 1 tab PO BEDTIME PRN 11/22/17 [History] Verapamil HCl [Verapamil ER PM] 1 cap PO DAILY 11/23/17 [History] Diclofenac Sodium [Voltaren 1% Gel] 1 unit TOP ASDIRECTED PRN 02/17/18 [History] Meloxicam 1 tab PO DAILY 02/17/18 [History] Chlorthalidone 50 mg PO DAILY 09/07/18 [History] Isosorbide Mononitrate [Isosorbide Mononitrate ER] 30 mg PO DAILY 09/07/18 [ History] Nitroglycerin 1 tab SL ASDIRECTED PRN 09/07/18 [History] amLODIPine Besylate [Amlodipine Besylate] 10 mg PO DAILY 09/07/18 [History] Past Medical History - Past Health History Medical/Surgical History: Denies Medical/Surgical History HEENT History: Reports: Allergic Rhinitis, Cataract, Hard of Hearing Other HEENT History: wears glasses, has upper dentures Cardiovascular History: Reports: Hypertension, SOB on Exertion. Denies: Afib, Blood Clots/VTE/DVT, NE, Stents Respiratory History: Reports: None. Denies: Asthma, COPD Gastrointestinal History: Reports: Colon Polyp, GERD, GI Bleed (gastric ulcer), Helicobacter Pylori, PUD Genitourinary History: Reports: None. Denies: Chronic Renal Insuffiency [employer] History: Reports: None Musculoskeletal History: Reports: None Neurological History: Reports: Headaches, Chronic. Denies: CVA, TIA Psychiatric History: Reports: Anxiety, Bipolar, Depression, PTSD Endocrine/Metabolic History: Reports: Obesity/BMI 30+. Denies: Diabetes, Type II, Hypothyroidism Hematologic History: Reports: Blood Transfusion(s) Immunologic History: Reports: None Oncologic (Cancer) History: Reports: None Dermatologic History: Reports: None - Infectious Disease History Infectious Disease History: Reports: Chicken Pox, Measles - Past Surgical History Head Surgeries/Procedures: Reports: None HEENT Surgical History: Reports: None Cardiovascular Surgical History: Reports: None GI Surgical History: Reports: Bariatric Procedure, Cholecystectomy, Colonoscopy , EGD, Other (See Below) Other GI Surgeries/Procedures: Gastric Bypass Female Surgical History: Reports: Hysterectomy, Oophorectomy Endocrine Surgical History: Reports: None Neurological Surgical History: Reports: None Musculoskeletal Surgical History: Reports: None Oncologic Surgical History: Reports: None Dermatological Surgical History: Reports: None Social & Family History - Family History Family Medical History: Noncontributory - Tobacco Use Smoking Status *Q: Never Smoker - Caffeine Use Caffeine Use: Reports: None - Alcohol Use Alcohol Use History: No - Recreational Drug Use Recreational Drug Use: No - Living Situation & Occupation Living situation: Reports: Single Occupation: Employed H&P Review of Systems - Review of Systems: Review Of Systems: See Below General: Denies: Fever, Chills, Malaise, Weakness HEENT: Reports: No Symptoms. Denies: Headaches, Sinus Congestion, Sore Throat Pulmonary: Reports: Shortness of Breath (with activity) Cardiovascular: Reports: Chest Pain (midsternal), Dyspnea on Exertion, Edema. Denies: Orthopnea, Lightheadedness Gastrointestinal: Reports: No Symptoms. Denies: Abdominal Pain, Black Stool, Bloody Stool, Decreased Appetite, Nausea, Vomiting Genitourinary: Reports: No Symptoms. Denies: Dysuria, Frequency, Burning Musculoskeletal: Reports: No Symptoms. Denies: Neck Pain Skin: Reports: No Symptoms Psychiatric: Reports: No Symptoms Neurological: Reports: No Symptoms Hematologic/Lymphatic: Reports: No Symptoms Immunologic: Reports: No Symptoms Exam - Exam Exam: See Below - Vital Signs Vital Signs: Last Vital Signs Temp Pulse 76 09/07/18 14:44 Resp 18 09/07/18 14:44 BP 128/80 09/07/18 14:44 Pulse Ox 97 09/07/18 14:44 Weight: 79.379 kg - Exam General: Alert, Oriented, Cooperative HEENT: Conjunctiva Clear, Mucosa Moist & [place], Posterior Pharynx Clear Neck: Supple, Trachea Midline. No: JVD Lungs: Clear to Auscultation, Normal Respiratory Effort Cardiovascular: Regular Rate, Regular Rhythm, Normal S1, Normal S2, Other ( sternal region, tender to palpation, pain is reproducible to pain she is having. ) GI/Abdominal Exam: Normal Bowel Sounds, Soft, Non-Tender, No Organomegaly Back Exam: Normal Inspection, Full Range of Motion Extremities: Normal Inspection, Normal Range of Motion, Non-Tender, Pedal Edema (+2 non pitting edema to BLE) Neurological: Cranial Nerves Intact Neuro Extensive - Mental Status: Alert, Oriented x3, Normal Mood/Affect Neuro Extensive - Motor, Sensory, Reflexes: CN II-XII Intact Psychiatric: Alert, Anxious - Patient Data Lab Results Last 24 hrs: Laboratory Results - last 24 hr 09/07/18 09/07/18 Range/Units 13:47 13:47 WBC 6.88 (4.0-11.0) K/uL RBC 4.48 (4.30-5.90) M/uL Hgb 13.3 (12.0-16.0) g/dL Hct 40.2 (36.0-46.0) % MCV 89.7 (80.0-98.0) fL MCH 29.7 (27.0-32.0) pg MCHC 33.1 (31.0-37.0) g/dL RDW Std Deviation 45.0 (28.0-62.0) fl RDW Coeff of Steven 14 (11.0-15.0) % Plt Count 255 (150-400) K/uL MPV 10.90 (7.40-12.00) fL Neut % (Auto) 63.1 (48.0-80.0) % Lymph % (Auto) 20.3 (16.0-40.0) % [place] % (Auto) 12.1 (0.0-15.0) % Eos % (Auto) 3.8 (0.0-7.0) % Baso % (Auto) 0.7 (0.0-1.5) % Neut # (Auto) 4.3 (1.4-5.7) K/uL Lymph # (Auto) 1.4 (0.6-2.4) K/uL [place] # (Auto) 0.8 (0.0-0.8) K/uL Eos # (Auto) 0.3 (0.0-0.7) K/uL Baso # (Auto) 0.1 (0.0-0.1) K/uL Nucleated RBC % 0.0 /100WBC Nucleated RBCs # 0 K/uL Sodium 139 (136-145) mmol/L Potassium 3.0 L (3.5-5.1) mmol/L Chloride 107 (98-107) mmol/L Carbon Dioxide 24.4 (21.0-32.0) mmol/L BUN 20 H (7.0-18.0) mg/dL Creatinine 0.9 (0.6-1.0) mg/dL Est Cr Clr Drug Dosing 50.86 mL/min Estimated GFR (MDRD) > 60.0 ml/min Glucose 89 (74-106) mg/dL Calcium 9.9 (8.5-10.1) mg/dL Total Bilirubin 0.4 (0.2-1.0) mg/dL AST 20 (15-37) IU/L ALT 27 (14-63) IU/L Alkaline Phosphatase 72 (46-116) U/L Troponin I < 0.050 (0.000-0.056) ng/mL Total Protein 6.8 (6.4-8.2) g/dL Albumin 3.7 (3.4-5.0) g/dL Globulin 3.1 (2.6-4.0) g/dL Albumin/Globulin Ratio 1.2 (0.9-1.6) Result Diagrams: 09/07/18 13:47 09/07/18 13:47 EKG INTERPRETATION EKG Date: 09/07/18 Rhythm: NSR Rate (Beats/Min): 81 P-Wave: Present QRS: Normal ST-T: Depressed (mild, no change from previous) QT: Normal Comparison: Change From Previous EKG *Q Meaningful Use (ADM) - VTE Risk Assess *Q Each Risk Factor Represents 1 Point: Swollen Legs, Current, Obesity ( BMI > 25 kg/m2) Total Score 1 Point Risk Factors: 2 Each Risk Factor Represents 2 Points: Age 60 - 74 Years Total Score 2 Point Risk Factors: 2 Each Risk Factor Represents 3 Points: None Total Score 3 Point Risk Factors: 0 Each Risk Factor Represents 5 Points: None Total Score 5 Point Risk Factors: 0 Venous Thromboembolism Risk Factor Score *Q: 4 - Problem List (1) Atypical chest pain SNOMED Code(s): 947258488 ICD Code: R07.89 - OTHER CHEST PAIN Status: Acute Current Visit: No (2) Dyspnea SNOMED Code(s): 767583013 ICD Code: R06.00 - DYSPNEA, UNSPECIFIED Status: Acute Current Visit: No Qualifiers: Dyspnea type: dyspnea on exertion Qualified Code(s): R06.09 - Other forms of dyspnea (3) PTSD (post-traumatic stress disorder) SNOMED Code(s): 66669599 ICD Code: F43.10 - POST-TRAUMATIC STRESS DISORDER, UNSPECIFIED Status: Chronic Current Visit: Yes (4) History of anxiety SNOMED Code(s): 097245166 ICD Code: Z86.59 - PERSONAL HISTORY OF OTHER MENTAL AND BEHAVIORAL DISORDERS Status: Chronic Current Visit: No (5) Leg edema SNOMED Code(s): 326884225 ICD Code: R60.0 - LOCALIZED EDEMA Status: Chronic Current Visit: No (6) HTN (hypertension) SNOMED Code(s): 84815265 ICD Code: I10 - ESSENTIAL (PRIMARY) HYPERTENSION Status: Chronic Current Visit: Yes Qualifiers: Hypertension type: essential hypertension Qualified Code(s): I10 - Essential (primary) hypertension Problem List Initiated/Reviewed/Updated: Yes Orders Last 24hrs: Active Orders 24 hr Category Date Time Status Patient Status [ADT] Routine ADT 09/07/18 14:42 Active Cardiac Monitoring [RC] CONTINUOUS Care 09/07/18 14:43 Inactive Oxygen Therapy [RC] PRN Care 09/07/18 14:42 Active RT Aerosol Therapy [RC] ASDIRECTED Care 09/07/18 14:44 Active Telemetry Monitoring [Cardiac Monitoring] [RC] . Care 09/07/18 14:55 Ordered DIRECTED VTE/DVT Education [RC] PER UNIT ROUTINE Care 09/07/18 14:42 Active Vital Signs [RC] Q4H Care 09/07/18 14:42 Active Heart Healthy Diet [DIET] Diet 09/07/18 Dinner Active BASIC METABOLIC PANEL,BMP [CHEM] AM Lab 09/08/18 05:11 Ordered CBC WITH AUTO DIFF [HEME] AM Lab 09/08/18 05:11 Ordered MAGNESIUM [CHEM] Routine Lab 09/07/18 15:05 Ordered TROPONIN I [CHEM] Q6H Lab 09/07/18 19:00 Ordered TROPONIN I [CHEM] Q6H Lab 09/08/18 01:00 Ordered Acetaminophen [Tylenol] Med 09/07/18 14:42 Active 650 mg PO Q4H PRN Albuterol/Ipratropium [DuoNeb 3.0-0.5 MG/3 ML] Med 09/07/18 14:42 Active 3 ml NEB Q4HRRT PRN Docusate Sodium [Colace] Med 09/07/18 14:42 Active 100 mg PO BID PRN Enoxaparin [Lovenox] Med 09/07/18 14:45 Active 30 mg SUBCUT Q24H Sodium Chloride 0.9% [Saline Flush] Med 09/07/18 13:49 Active 10 ml FLUSH ASDIRECTED PRN Sodium Chloride 0.9% [Saline Flush] Med 09/07/18 13:49 Active 2.5 ml FLUSH ASDIRECTED PRN Temazepam [Restoril] Med 09/07/18 14:42 Active 15 mg PO BEDTIME PRN oxyCODONE Med 09/07/18 14:42 Active 5 mg PO Q4H PRN Saline Lock Insert [OM.PC] Stat Oth 09/07/18 13:49 Ordered Resuscitation Status Routine Resus Stat 09/07/18 14:42 Ordered Medication Orders Acetaminophen (Tylenol) 650 mg PO Q4H PRN PRN Reason: Pain (Mild 1-3)/fever Albuterol/Ipratropium (Duoneb 3.0-0.5 Mg/3 Ml) 3 ml NEB Q4HRRT PRN PRN Reason: Shortness Of Breath/wheezing Docusate Sodium (Colace) 100 mg PO BID PRN PRN Reason: Constipation Enoxaparin Sodium (Lovenox) 30 mg SUBCUT Q24H MICKY Oxycodone HCl (Oxycodone) 5 mg PO Q4H PRN PRN Reason: Pain (moderate 4-6) Sodium Chloride (Saline Flush) 10 ml FLUSH ASDIRECTED PRN PRN Reason: Keep Vein Open Last Admin: 09/07/18 14:42 Dose: 10 ml Sodium Chloride (Saline Flush) 2.5 ml FLUSH ASDIRECTED PRN PRN Reason: Keep Vein Open Last Admin: 09/07/18 14:43 Dose: 2.5 ml Temazepam (Restoril) 15 mg PO BEDTIME PRN PRN Reason: Sleep Assessment/Plan Comment:: This 67 year old admitted atypical chest pain rule out ACS 1. Atypical chest pain: Reproducible pain on exam with palpation. Will monitor on telemetry. Trend troponins. Check lipid panel and A1c. Highly stressed she needs to follow up with Dr Garcia for stress test. Will obtain ECHO due to lower leg edema. 2. Hypokalemia: Reports this is an issue for her since gastric bypass, takes pill supplement at home for this. Gets intermittent leg cramping. 3.Anxiety: Likely what is causing dyspnea. Will reorder Ativan. Monitor. 4. HTN: Stable in ED. Will monitor and continue home meds. 5. Anemia: Stable, hgb 13.3. Continue supplements due to gastric bypass. VTE prophylaxis: Lovenox. Dispo: in am. <Jay Lino - Last Filed: 09/07/18 18:50> H&P History of Present Illness - General Admit Problem/Dx: Admission Diagnosis/Problem Admission Diagnosis/Problem Chest pain syndrome I have seen and examined to patient independently of Dalia Cordoba CNP.I have discussed the case for care of this patient with her. I have reviewed and approve of the plan of care as outlined by MEASURING MACHINE OPERATOR. Please see her orders. Exam - Vital Signs Vital Signs: Last Vital Signs Temp 36.8 C 09/07/18 15:41 Pulse 69 09/07/18 15:41 Resp 20 09/07/18 15:41 BP 132/82 09/07/18 15:41 Pulse Ox 98 09/07/18 15:41 - Patient Data Lab Results Last 24 hrs: Laboratory Results - last 24 hr 09/07/18 09/07/18 09/07/18 Range/Units 13:47 13:47 13:47 WBC 6.88 (4.0-11.0) K/uL RBC 4.48 (4.30-5.90) M/uL Hgb 13.3 (12.0-16.0) g/dL Hct 40.2 (36.0-46.0) % MCV 89.7 (80.0-98.0) fL MCH 29.7 (27.0-32.0) pg MCHC 33.1 (31.0-37.0) g/dL RDW Std Deviation 45.0 (28.0-62.0) fl RDW Coeff of Steven 14 (11.0-15.0) % Plt Count 255 (150-400) K/uL MPV 10.90 (7.40-12.00) fL Neut % (Auto) 63.1 (48.0-80.0) % Lymph % (Auto) 20.3 (16.0-40.0) % [place] % (Auto) 12.1 (0.0-15.0) % Eos % (Auto) 3.8 (0.0-7.0) % Baso % (Auto) 0.7 (0.0-1.5) % Neut # (Auto) 4.3 (1.4-5.7) K/uL Lymph # (Auto) 1.4 (0.6-2.4) K/uL [place] # (Auto) 0.8 (0.0-0.8) K/uL Eos # (Auto) 0.3 (0.0-0.7) K/uL Baso # (Auto) 0.1 (0.0-0.1) K/uL Nucleated RBC % 0.0 /100WBC Nucleated RBCs # 0 K/uL Sodium 139 (136-145) mmol/L Potassium 3.0 L (3.5-5.1) mmol/L Chloride 107 (98-107) mmol/L Carbon Dioxide 24.4 (21.0-32.0) mmol/L BUN 20 H (7.0-18.0) mg/dL Creatinine 0.9 (0.6-1.0) mg/dL Est Cr Clr Drug Dosing 50.86 mL/min Estimated GFR (MDRD) > 60.0 ml/min Glucose 89 (74-106) mg/dL Hemoglobin A1c (4.5-6.2) % Calcium 9.9 (8.5-10.1) mg/dL Magnesium 1.8 (1.8-2.4) mg/dL Total Bilirubin 0.4 (0.2-1.0) mg/dL AST 20 (15-37) IU/L ALT 27 (14-63) IU/L Alkaline Phosphatase 72 (46-116) U/L Troponin I < 0.050 (0.000-0.056) ng/mL Total Protein 6.8 (6.4-8.2) g/dL Albumin 3.7 (3.4-5.0) g/dL Globulin 3.1 (2.6-4.0) g/dL Albumin/Globulin Ratio 1.2 (0.9-1.6) 09/07/18 Range/Units 13:47 WBC (4.0-11.0) K/uL RBC (4.30-5.90) M/uL Hgb (12.0-16.0) g/dL Hct (36.0-46.0) % MCV (80.0-98.0) fL MCH (27.0-32.0) pg MCHC (31.0-37.0) g/dL RDW Std Deviation (28.0-62.0) fl RDW Coeff of Steven (11.0-15.0) % Plt Count (150-400) K/uL MPV (7.40-12.00) fL Neut % (Auto) (48.0-80.0) % Lymph % (Auto) (16.0-40.0) % [place] % (Auto) (0.0-15.0) % Eos % (Auto) (0.0-7.0) % Baso % (Auto) (0.0-1.5) % Neut # (Auto) (1.4-5.7) K/uL Lymph # (Auto) (0.6-2.4) K/uL [place] # (Auto) (0.0-0.8) K/uL Eos # (Auto) (0.0-0.7) K/uL Baso # (Auto) (0.0-0.1) K/uL Nucleated RBC % /100WBC Nucleated RBCs # K/uL Sodium (136-145) mmol/L Potassium (3.5-5.1) mmol/L Chloride (98-107) mmol/L Carbon Dioxide (21.0-32.0) mmol/L BUN (7.0-18.0) mg/dL Creatinine (0.6-1.0) mg/dL Est Cr Clr Drug Dosing mL/min Estimated GFR (MDRD) ml/min Glucose (74-106) mg/dL Hemoglobin A1c 5.9 (4.5-6.2) % Calcium (8.5-10.1) mg/dL Magnesium (1.8-2.4) mg/dL Total Bilirubin (0.2-1.0) mg/dL AST (15-37) IU/L ALT (14-63) IU/L Alkaline Phosphatase (46-116) U/L Troponin I (0.000-0.056) ng/mL Total Protein (6.4-8.2) g/dL Albumin (3.4-5.0) g/dL Globulin (2.6-4.0) g/dL Albumin/Globulin Ratio (0.9-1.6) Result Diagrams: 09/07/18 13:47 09/07/18 13:47 Orders Last 24hrs: Active Orders 24 hr Category Date Time Status Patient Status [ADT] Routine ADT 09/07/18 14:42 Active Cardiac Monitoring [RC] CONTINUOUS Care 09/07/18 14:43 Inactive Oxygen Therapy [RC] PRN Care 09/07/18 14:42 Active RT Aerosol Therapy [RC] ASDIRECTED Care 09/07/18 14:44 Active Telemetry Monitoring [Cardiac Monitoring] [RC] . Care 09/07/18 14:55 Active DIRECTED VTE/DVT Education [RC] PER UNIT ROUTINE Care 09/07/18 14:42 Active Vital Signs [RC] Q4H Care 09/07/18 14:42 Active Heart Healthy Diet [DIET] Diet 09/07/18 Dinner Active Echo Comp wo Cont [US] Routine Exams 09/08/18 15:23 Ordered BASIC METABOLIC PANEL,BMP [CHEM] AM Lab 09/08/18 05:11 Ordered CBC WITH AUTO DIFF [HEME] AM Lab 09/08/18 05:11 Ordered LIPID PANEL [CHEM] AM Lab 09/08/18 05:11 Ordered TROPONIN I [CHEM] Q6H Lab 09/07/18 19:00 Ordered TROPONIN I [CHEM] Q6H Lab 09/08/18 01:00 Ordered Acetaminophen [Tylenol] Med 09/07/18 14:42 Active 650 mg PO Q4H PRN Albuterol/Ipratropium [DuoNeb 3.0-0.5 MG/3 ML] Med 09/07/18 14:42 Active 3 ml NEB Q4HRRT PRN Chlorthalidone Med 09/08/18 09:00 Active 50 mg PO DAILY Docusate Sodium [Colace] Med 09/07/18 14:42 Active 100 mg PO BID PRN Enoxaparin [Lovenox] Med 09/07/18 14:45 Active 30 mg SUBCUT Q24H Isosorbide Mononitrate [Imdur] Med 09/08/18 09:00 Active 30 mg PO DAILY LORazepam [Ativan] Med 09/07/18 15:24 Active 0.5 mg PO BID PRN Omeprazole Med 09/08/18 07:30 Active 40 mg PO ACBREAKFAST Patient's Own Medication [Ptom] Med 09/07/18 16:40 Active 1 each PO BEDTIME PRN Patient's Own Medication [Ptom] Med 09/08/18 09:00 Active 1 each PO DAILY Patient's Own Medication [Ptom] Med 09/07/18 16:40 Active 1 each TOP ASDIRECTED PRN Sodium Chloride 0.9% [Saline Flush] Med 09/07/18 13:49 Active 10 ml FLUSH ASDIRECTED PRN Sodium Chloride 0.9% [Saline Flush] Med 09/07/18 13:49 Active 2.5 ml FLUSH ASDIRECTED PRN Temazepam [Restoril] Med 09/07/18 14:42 Active 15 mg PO BEDTIME PRN amLODIPine [Norvasc] Med 09/08/18 09:00 Active 10 mg PO DAILY oxyCODONE Med 09/07/18 14:42 Active 5 mg PO Q4H PRN Saline Lock Insert [OM.PC] Stat Oth 09/07/18 13:49 Ordered Resuscitation Status Routine Resus Stat 09/07/18 14:42 Ordered Medication Orders Acetaminophen (Tylenol) 650 mg PO Q4H PRN PRN Reason: Pain (Mild 1-3)/fever Last Admin: 09/07/18 16:30 Dose: 650 mg Albuterol/Ipratropium (Duoneb 3.0-0.5 Mg/3 Ml) 3 ml NEB Q4HRRT PRN PRN Reason: Shortness Of Breath/wheezing Amlodipine Besylate (Norvasc) 10 mg PO DAILY MICKY Chlorthalidone (Chlorthalidone) 50 mg PO DAILY MICKY Docusate Sodium (Colace) 100 mg PO BID PRN PRN Reason: Constipation Enoxaparin Sodium (Lovenox) 30 mg SUBCUT Q24H MICKY Last Admin: 09/07/18 16:24 Dose: 30 mg Isosorbide Mononitrate (Imdur) 30 mg PO DAILY MICKY Lorazepam (Ativan) 0.5 mg PO BID PRN PRN Reason: Anxiety Last Admin: 09/07/18 16:24 Dose: 0.5 mg Omeprazole (Omeprazole) 40 mg PO ACBREAKFAST MICKY Oxycodone HCl (Oxycodone) 5 mg PO Q4H PRN PRN Reason: Pain (moderate 4-6) Diclofenac [Voltaren (1% Gel]) 1 each TOP ASDIRECTED PRN PRN Reason: Pain Levocetirizine 5mg 1 each PO BEDTIME PRN PRN Reason: Allergies Verapamil Er 300mg 1 each PO DAILY MICKY Sodium Chloride (Saline Flush) 10 ml FLUSH ASDIRECTED PRN PRN Reason: Keep Vein Open Last Admin: 09/07/18 14:42 Dose: 10 ml Sodium Chloride (Saline Flush) 2.5 ml FLUSH ASDIRECTED PRN PRN Reason: Keep Vein Open Last Admin: 09/07/18 14:43 Dose: 2.5 ml Temazepam (Restoril) 15 mg PO BEDTIME PRN PRN Reason: Sleep
[2018-09-07] MEDS ORDERED: LORazepam 0.5 MG Tab PO PRN (15:24)
[2018-09-07 15:48] LABS: HEMOGLOBIN A1C 5.9 % (4.5-6.2)
[2018-09-07] MEDS: Acetaminophen 325 MG Tab PO PRN (16:30)
[2018-09-07] MEDS ORDERED: DICLOFENAC TOP PRN (16:40)
[2018-09-07] MEDS ORDERED: Potassium Chloride 10% 20 MEQ/15 ML Soln 30 ML UD Cup PO ONE (17:30)
[2018-09-07] MEDS ORDERED: Loperamide 2 MG Cap PO ONE (18:45)
[2018-09-07] MEDS ORDERED: Ondansetron 4 MG/2 ML SDV IVPUSH PRN (19:57)
[2018-09-08] MEDS: Acetaminophen 325 MG Tab PO PRN (04:00)
[2018-09-08] MEDS ORDERED: Omeprazole 20 MG Cap.CR PO SCH (07:30)
[2018-09-08] MEDS ORDERED: Ciprofloxacin 500 MG Tab PO SCH (09:00)
[2018-09-08] MEDS ORDERED: VERAPAMIL 300 MG PO SCH (09:00)
[2018-09-08] MEDS ORDERED: Isosorbide Mononitrate 30 MG Tab.ER PO SCH (09:00)
[2018-09-08] MEDS ORDERED: amLODIPine 5 MG Tab PO SCH (09:00)
[2018-09-08] MEDS ORDERED: Chlorthalidone 25 MG Tab PO SCH (09:00)
[2018-09-08 09:41] VITALS: BP 160/89
--- NOTE | 2018-09-08 10:37 | PCM.DCSUM1 ---
<Dalia Cordoba M - Last Filed: 09/08/18 10:27> Discharge Summary - Hospital Course Brief History: This 67 year old female with pmh of HTN, PTSD and anxiety presented to the ED after experience chest pain x 1 hr while she was playing cards. She reports typically her chest pain is with activity, this time she was sitting still. The pain is midsternal and caused shortness of breath. She took a SL nitro, which did NOT help the pain. So she sought medical help in ED. She reports she gets short of breath with any activity and isn't able to do much without becoming short of breath. She reports she works for [employer] in [place], so at time her job is physically demanding. She has been evaluated by many providers, included Dr Garcia, but she has continued to not make multiple appointments for ECHOs and stress tests. She was admitted 1 year ago under very similar circumstances, she was evaluated by Telepysch Dr Headley, who recommended Seroquel and Ativan. She stopped the Seroquel it made her groggy in the morning. Reports still taking Ativan. She denies any tobacco or alcohol use. In the ED CBC WNL, K+ 3.0. Troponin negative. EKG SR with minimal ST depression, no change from previous EKGs. VS Stable. CXR negative. She will be admitted for chest pain rule out ASC. PCP, Dr Parra Diagnosis: Stroke: No - Discharge Data Discharge Date: 09/08/18 Discharge Disposition: Home, Self-Care 01 Condition: Good - Discharge Diagnosis/Problem(s) (1) Atypical chest pain SNOMED Code(s): 062629516 ICD Code: R07.89 - OTHER CHEST PAIN Status: Acute (2) Dyspnea SNOMED Code(s): 870427670 ICD Code: R06.00 - DYSPNEA, UNSPECIFIED Status: Acute Qualifiers: Dyspnea type: dyspnea on exertion Qualified Code(s): R06.09 - Other forms of dyspnea (3) PTSD (post-traumatic stress disorder) SNOMED Code(s): 36937583 ICD Code: F43.10 - POST-TRAUMATIC STRESS DISORDER, UNSPECIFIED Status: Chronic (4) History of anxiety SNOMED Code(s): 271784248 ICD Code: Z86.59 - PERSONAL HISTORY OF OTHER MENTAL AND BEHAVIORAL DISORDERS Status: Chronic (5) Leg edema SNOMED Code(s): 659954740 ICD Code: R60.0 - LOCALIZED EDEMA Status: Chronic (6) HTN (hypertension) SNOMED Code(s): 13444603 ICD Code: I10 - ESSENTIAL (PRIMARY) HYPERTENSION Status: Chronic Qualifiers: Hypertension type: essential hypertension Qualified Code(s): I10 - Essential (primary) hypertension - Patient Instructions Diet: Heart Healthy Diet Activity: No Strenuous Activities Showering/Bathing: May Shower Notify Provider of: Fever, Increased Pain, Swelling and Redness, Drainage, Nausea and/or Vomiting - Discharge Plan *PRESCRIPTION DRUG MONITORING PROGRAM REVIEWED*: Not Applicable *COPY OF PRESCRIPTION DRUG MONITORING REPORT IN PATIENT MCKIN[place]: Not Applicable Prescriptions/Med Rec: Ciprofloxacin [Ciprofloxacin HCl] 500 mg PO BID #5 tablet Potassium Chloride [Potassium Chloride Solution] 20 meq PO BID #30 cup Home Medications: Home Meds Omeprazole 40 mg PO DAILY 11/23/16 [History] Levocetirizine Dihydrochloride 5 mg PO BEDTIME PRN 11/22/17 [History] Verapamil HCl [Verapamil ER PM] 300 mg PO DAILY 11/23/17 [History] Diclofenac Sodium [Voltaren 1% Gel] 1 unit TOP ASDIRECTED PRN 02/17/18 [History] Meloxicam 15 mg PO DAILY 02/17/18 [History] Chlorthalidone 50 mg PO DAILY 09/07/18 [History] Isosorbide Mononitrate [Isosorbide Mononitrate ER] 30 mg PO DAILY 09/07/18 [ History] Nitroglycerin 0.4 mg SL .EVERY 5 MINUTES PRN MDD 3 TABLETS 09/07/18 [History] amLODIPine Besylate [Amlodipine Besylate] 10 mg PO DAILY 09/07/18 [History] Ciprofloxacin [Ciprofloxacin HCl] 500 mg PO BID #5 tablet 09/08/18 [Rx] Potassium Chloride [Potassium Chloride Solution] 20 meq PO BID #30 cup 09/08/18 [Rx] Oxygen Therapy Mode: Room Air Patient Handouts: Nonspecific Chest Pain, [id number], Ciprofloxacin tablets, Potassium chloride oral solution, syrup, or powder for solution Referrals: [facility] [Outside] Markus Garcia MD [Physician] - 09/25/18 10:30 am () Arnoldo Brand MD [Ordering Only Provider] - 09/18/18 10:15 am - Discharge Summary/Plan Comment DC Time >30 min.: No Discharge Summary/Plan Comment: Admitting Diagnoses: Atypical chest pain Dyspnea Hypokalemia Discharge Diagnoses: Chest pain-resolved dyspnea resolved UTI Other PMH HTN Leg edema Anxiety PTSD Shirley was admitted secondary to chest pain and dyspnea. Troponins were trended and she was monitored on telemetry. No acute ST changes and troponins remained negative. She was noted to have UTI and treated with Ciprofloxacin. Today she is feeling much better, no further chest pain and no dyspnea. This may be related to anxiety, which she agrees with reporting it is the 5 year anniversary of her husbands passing. She has been scheduled for multiple stress tests and has not followed through, she will be scheduled for another and it is highly stressed that she follows through with this. She was also noted to have hypokalemia, she was treated with Potassium solution and this resolved. 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 She will be discharged home today with follow up with her PCP and Dr Garcia for stress test. She is to return to ED or clinic if concerns should arise. Ciprofloxacin to be continued for 3 more days for UTI. - General Info Date of Service: 09/08/18 Admission Dx/Problem (Free Text: Admission Diagnosis/Problem Admission Diagnosis/Problem Chest pain Subjective Update: Feeling good this morning, No concerns. No chest pain or dyspnea. Eager to go home. Functional Status: Reports: Pain Controlled, Tolerating Diet, Ambulating - Review of Systems General: Reports: No Symptoms. Denies: Fever, Weakness, Fatigue Pulmonary: Reports: No Symptoms. Denies: Shortness of Breath Cardiovascular: Reports: No Symptoms. Denies: Chest Pain Gastrointestinal: Reports: No Symptoms. Denies: Abdominal Pain, Nausea, Vomiting Genitourinary: Reports: No Symptoms Musculoskeletal: Reports: No Symptoms Neurological: Reports: No Symptoms Psychiatric: Reports: No Symptoms - Patient Data Vitals - Most Recent: Last Vital Signs Temp 97.5 F 09/08/18 07:45 Pulse 74 09/08/18 07:45 Resp 16 09/08/18 07:45 BP 160/89 H 09/08/18 09:39 Pulse Ox 99 09/08/18 07:45 Weight - Most Recent: 81.374 kg I&O - Last 24 hours: Intake & Output 09/07/18 09/08/18 09/08/18 22:59 06:59 14:59 Intake Total 650 120 Output Total 550 Balance 100 120 Lab Results - Last 24 hrs: Laboratory Results - last 24 hr 09/07/18 09/07/18 09/07/18 Range/Units 13:47 13:47 13:47 WBC 6.88 (4.0-11.0) K/uL RBC 4.48 (4.30-5.90) M/uL Hgb 13.3 (12.0-16.0) g/dL Hct 40.2 (36.0-46.0) % MCV 89.7 (80.0-98.0) fL MCH 29.7 (27.0-32.0) pg MCHC 33.1 (31.0-37.0) g/dL RDW Std Deviation 45.0 (28.0-62.0) fl RDW Coeff of Steven 14 (11.0-15.0) % Plt Count 255 (150-400) K/uL MPV 10.90 (7.40-12.00) fL Neut % (Auto) 63.1 (48.0-80.0) % Lymph % (Auto) 20.3 (16.0-40.0) % Preble % (Auto) 12.1 (0.0-15.0) % Eos % (Auto) 3.8 (0.0-7.0) % Baso % (Auto) 0.7 (0.0-1.5) % Neut # (Auto) 4.3 (1.4-5.7) K/uL Lymph # (Auto) 1.4 (0.6-2.4) K/uL Preble # (Auto) 0.8 (0.0-0.8) K/uL Eos # (Auto) 0.3 (0.0-0.7) K/uL Baso # (Auto) 0.1 (0.0-0.1) K/uL Nucleated RBC % 0.0 /100WBC Nucleated RBCs # 0 K/uL Sodium 139 (136-145) mmol/L Potassium 3.0 L (3.5-5.1) mmol/L Chloride 107 (98-107) mmol/L Carbon Dioxide 24.4 (21.0-32.0) mmol/L BUN 20 H (7.0-18.0) mg/dL Creatinine 0.9 (0.6-1.0) mg/dL Est Cr Clr Drug Dosing 50.86 mL/min Estimated GFR (MDRD) > 60.0 ml/min Glucose 89 (74-106) mg/dL Hemoglobin A1c (4.5-6.2) % Calcium 9.9 (8.5-10.1) mg/dL Magnesium 1.8 (1.8-2.4) mg/dL Total Bilirubin 0.4 (0.2-1.0) mg/dL AST 20 (15-37) IU/L ALT 27 (14-63) IU/L Alkaline Phosphatase 72 (46-116) U/L Troponin I < 0.050 (0.000-0.056) ng/mL Total Protein 6.8 (6.4-8.2) g/dL Albumin 3.7 (3.4-5.0) g/dL Globulin 3.1 (2.6-4.0) g/dL Albumin/Globulin Ratio 1.2 (0.9-1.6) Triglycerides (0-200) mg/dL Cholesterol (50-200) mg/dL LDL Cholesterol, Calc (60-180) mg/dL VLDL Cholesterol (5-55) mg/dL HDL Cholesterol (40-60) mg/dL Cholesterol/HDL Ratio (3.3-6.0) Urine Color Urine Appearance Urine pH (5.0-8.0) Ur Specific Ector (1.001-1.035) Urine Protein (NEGATIVE) mg/dL Urine Glucose (UA) (NEGATIVE) mg/dL Urine Ketones (NEGATIVE) mg/dL Urine Occult Blood (NEGATIVE) Urine Nitrite (NEGATIVE) Urine Bilirubin (NEGATIVE) Urine Urobilinogen (<2.0) EU/dL Ur Leukocyte Esterase (NEGATIVE) Urine RBC (0-2/HPF) Urine WBC (0-5/HPF) Ur Epithelial Cells (NONE-FEW) Urine Bacteria (NEGATIVE) 09/07/18 09/07/18 09/07/18 Range/Units 13:47 18:40 21:00 WBC (4.0-11.0) K/uL RBC (4.30-5.90) M/uL Hgb (12.0-16.0) g/dL Hct (36.0-46.0) % MCV (80.0-98.0) fL MCH (27.0-32.0) pg MCHC (31.0-37.0) g/dL RDW Std Deviation (28.0-62.0) fl RDW Coeff of Steven (11.0-15.0) % Plt Count (150-400) K/uL MPV (7.40-12.00) fL Neut % (Auto) (48.0-80.0) % Lymph % (Auto) (16.0-40.0) % Preble % (Auto) (0.0-15.0) % Eos % (Auto) (0.0-7.0) % Baso % (Auto) (0.0-1.5) % Neut # (Auto) (1.4-5.7) K/uL Lymph # (Auto) (0.6-2.4) K/uL Preble # (Auto) (0.0-0.8) K/uL Eos # (Auto) (0.0-0.7) K/uL Baso # (Auto) (0.0-0.1) K/uL Nucleated RBC % /100WBC Nucleated RBCs # K/uL Sodium (136-145) mmol/L Potassium (3.5-5.1) mmol/L Chloride (98-107) mmol/L Carbon Dioxide (21.0-32.0) mmol/L BUN (7.0-18.0) mg/dL Creatinine (0.6-1.0) mg/dL Est Cr Clr Drug Dosing mL/min Estimated GFR (MDRD) ml/min Glucose (74-106) mg/dL Hemoglobin A1c 5.9 (4.5-6.2) % Calcium (8.5-10.1) mg/dL Magnesium (1.8-2.4) mg/dL Total Bilirubin (0.2-1.0) mg/dL AST (15-37) IU/L ALT (14-63) IU/L Alkaline Phosphatase (46-116) U/L Troponin I < 0.050 (0.000-0.056) ng/mL Total Protein (6.4-8.2) g/dL Albumin (3.4-5.0) g/dL Globulin (2.6-4.0) g/dL Albumin/Globulin Ratio (0.9-1.6) Triglycerides (0-200) mg/dL Cholesterol (50-200) mg/dL LDL Cholesterol, Calc (60-180) mg/dL VLDL Cholesterol (5-55) mg/dL HDL Cholesterol (40-60) mg/dL Cholesterol/HDL Ratio (3.3-6.0) Urine Color YELLOW Urine Appearance CLOUDY Urine pH 7.5 (5.0-8.0) Ur Specific Ector 1.020 (1.001-1.035) Urine Protein NEGATIVE (NEGATIVE) mg/dL Urine Glucose (UA) NEGATIVE (NEGATIVE) mg/dL Urine Ketones TRACE H (NEGATIVE) mg/dL Urine Occult Blood NEGATIVE (NEGATIVE) Urine Nitrite POSITIVE H (NEGATIVE) Urine Bilirubin NEGATIVE (NEGATIVE) Urine Urobilinogen 0.2 (<2.0) EU/dL Ur Leukocyte Esterase TRACE H (NEGATIVE) Urine RBC 0-2 (0-2/HPF) Urine WBC 13-16 (0-5/HPF) Ur Epithelial Cells OCCASIONAL (NONE-FEW) Urine Bacteria 2+ H (NEGATIVE) 09/08/18 09/08/18 09/08/18 Range/Units 00:53 05:35 05:35 WBC 4.71 (4.0-11.0) K/uL RBC 4.30 (4.30-5.90) M/uL Hgb 12.5 (12.0-16.0) g/dL Hct 39.6 (36.0-46.0) % MCV 92.1 (80.0-98.0) fL MCH 29.1 (27.0-32.0) pg MCHC 31.6 (31.0-37.0) g/dL RDW Std Deviation 47.1 (28.0-62.0) fl RDW Coeff of Steven 14 (11.0-15.0) % Plt Count 232 (150-400) K/uL MPV 11.10 (7.40-12.00) fL Neut % (Auto) 54.5 (48.0-80.0) % Lymph % (Auto) 32.1 (16.0-40.0) % Preble % (Auto) 8.1 (0.0-15.0) % Eos % (Auto) 4.7 (0.0-7.0) % Baso % (Auto) 0.6 (0.0-1.5) % Neut # (Auto) 2.6 (1.4-5.7) K/uL Lymph # (Auto) 1.5 (0.6-2.4) K/uL Preble # (Auto) 0.4 (0.0-0.8) K/uL Eos # (Auto) 0.2 (0.0-0.7) K/uL Baso # (Auto) 0.0 (0.0-0.1) K/uL Nucleated RBC % 0.0 /100WBC Nucleated RBCs # 0 K/uL Sodium 142 (136-145) mmol/L Potassium 3.9 (3.5-5.1) mmol/L Chloride 108 H (98-107) mmol/L Carbon Dioxide 27.3 (21.0-32.0) mmol/L BUN 19 H (7.0-18.0) mg/dL Creatinine 1.0 (0.6-1.0) mg/dL Est Cr Clr Drug Dosing 45.78 mL/min Estimated GFR (MDRD) 55.5 ml/min Glucose 84 (74-106) mg/dL Hemoglobin A1c (4.5-6.2) % Calcium 9.5 (8.5-10.1) mg/dL Magnesium (1.8-2.4) mg/dL Total Bilirubin (0.2-1.0) mg/dL AST (15-37) IU/L ALT (14-63) IU/L Alkaline Phosphatase (46-116) U/L Troponin I < 0.050 (0.000-0.056) ng/mL Total Protein (6.4-8.2) g/dL Albumin (3.4-5.0) g/dL Globulin (2.6-4.0) g/dL Albumin/Globulin Ratio (0.9-1.6) Triglycerides 153 (0-200) mg/dL Cholesterol 219 H (50-200) mg/dL LDL Cholesterol, Calc 121 (60-180) mg/dL VLDL Cholesterol 30 (5-55) mg/dL HDL Cholesterol 67 H (40-60) mg/dL Cholesterol/HDL Ratio 3.3 (3.3-6.0) Urine Color Urine Appearance Urine pH (5.0-8.0) Ur Specific Ector (1.001-1.035) Urine Protein (NEGATIVE) mg/dL Urine Glucose (UA) (NEGATIVE) mg/dL Urine Ketones (NEGATIVE) mg/dL Urine Occult Blood (NEGATIVE) Urine Nitrite (NEGATIVE) Urine Bilirubin (NEGATIVE) Urine Urobilinogen (<2.0) EU/dL Ur Leukocyte Esterase (NEGATIVE) Urine RBC (0-2/HPF) Urine WBC (0-5/HPF) Ur Epithelial Cells (NONE-FEW) Urine Bacteria (NEGATIVE) Med Orders - Current: Current Medications Acetaminophen (Tylenol) 650 mg PO Q4H PRN PRN Reason: Pain (Mild 1-3)/fever Last Admin: 09/08/18 04:00 Dose: 650 mg Albuterol/Ipratropium (Duoneb 3.0-0.5 Mg/3 Ml) 3 ml NEB Q4HRRT PRN PRN Reason: Shortness Of Breath/wheezing Amlodipine Besylate (Norvasc) 10 mg PO DAILY [facility] Last Admin: 09/08/18 09:39 Dose: 10 mg Chlorthalidone (Chlorthalidone) 50 mg PO DAILY [facility] Last Admin: 09/08/18 09:39 Dose: 50 mg Ciprofloxacin (Ciprofloxacin Hcl) 500 mg PO BID [facility] Stop: 09/13/18 09:00 Last Admin: 09/08/18 09:37 Dose: 500 mg Docusate Sodium (Colace) 100 mg PO BID PRN PRN Reason: Constipation Enoxaparin Sodium (Lovenox) 30 mg SUBCUT Q24H [facility] Last Admin: 09/07/18 16:24 Dose: 30 mg Isosorbide Mononitrate (Imdur) 30 mg PO DAILY [facility] Last Admin: 09/08/18 09:37 Dose: 30 mg Lorazepam (Ativan) 0.5 mg PO BID PRN PRN Reason: Anxiety Last Admin: 09/07/18 16:24 Dose: 0.5 mg Omeprazole (Omeprazole) 40 mg PO ACBREAKFAST [facility] Last Admin: 09/08/18 06:34 Dose: 40 mg Ondansetron HCl (Zofran) 4 mg IVPUSH Q6H PRN PRN Reason: Nausea/Vomiting Last Admin: 09/07/18 20:18 Dose: 4 mg Oxycodone HCl (Oxycodone) 5 mg PO Q4H PRN PRN Reason: Pain (moderate 4-6) Last Admin: 09/07/18 20:21 Dose: 5 mg Diclofenac [Voltaren (1% Gel]) 1 each TOP ASDIRECTED PRN PRN Reason: Pain Levocetirizine 5mg 1 each PO BEDTIME PRN PRN Reason: Allergies Verapamil Er 300mg 1 each PO DAILY [facility] Last Admin: 09/08/18 09:41 Dose: Not Given Sodium Chloride (Saline Flush) 10 ml FLUSH ASDIRECTED PRN PRN Reason: Keep Vein Open Last Admin: 09/07/18 14:42 Dose: 10 ml Sodium Chloride (Saline Flush) 2.5 ml FLUSH ASDIRECTED PRN PRN Reason: Keep Vein Open Last Admin: 09/07/18 14:43 Dose: 2.5 ml Temazepam (Restoril) 15 mg PO BEDTIME PRN PRN Reason: Sleep Discontinued Medications Loperamide HCl (Imodium) 2 mg PO ONETIME ONE Stop: 09/07/18 18:46 Last Admin: 09/07/18 18:57 Dose: 2 mg Potassium Chloride (Klor-Con M20) 40 meq PO ONETIME ONE Stop: 09/07/18 14:21 Last Admin: 09/07/18 14:43 Dose: 40 meq Potassium Chloride (Potassium Chloride) 40 meq PO ONETIME ONE Stop: 09/07/18 17:31 Last Admin: 09/07/18 17:19 Dose: 40 meq - Exam General: Reports: Alert, Oriented, Cooperative Neck: Reports: Supple Lungs: Reports: Clear to Auscultation, Normal Respiratory Effort Cardiovascular: Reports: Regular Rate, Regular Rhythm GI/Abdominal Exam: Normal Bowel Sounds, Soft, Non-Tender Skin: Reports: Warm, Dry, Intact Neurological: Reports: No New Focal Deficit Psy/Mental Status: Reports: Alert, Normal Affect, Normal Mood <Jay Lino - Last Filed: 09/08/18 14:04> Discharge Summary - Hospital Course HPI Initial Comments: I have seen and examined to patient independently of Dalia Cordoba CNP. I have discussed the case for care of this patient with her. I have reviewed and approve of the plan of care as outlined by her. Please see orders. - Patient Data Vitals - Most Recent: Last Vital Signs Temp 36.4 C 09/08/18 07:45 Pulse 74 09/08/18 07:45 Resp 16 09/08/18 07:45 BP 160/89 H 09/08/18 09:39 Pulse Ox 99 09/08/18 07:45 I&O - Last 24 hours: Intake & Output 09/07/18 09/08/18 09/08/18 22:59 06:59 14:59 Intake Total 650 360 Output Total 550 200 Balance 100 160 Lab Results - Last 24 hrs: Laboratory Results - last 24 hr 09/07/18 09/07/18 09/07/18 Range/Units 13:47 13:47 13:47 WBC (4.0-11.0) K/uL RBC (4.30-5.90) M/uL Hgb (12.0-16.0) g/dL Hct (36.0-46.0) % MCV (80.0-98.0) fL MCH (27.0-32.0) pg MCHC (31.0-37.0) g/dL RDW Std Deviation (28.0-62.0) fl RDW Coeff of Steven (11.0-15.0) % Plt Count (150-400) K/uL MPV (7.40-12.00) fL Neut % (Auto) (48.0-80.0) % Lymph % (Auto) (16.0-40.0) % Preble % (Auto) (0.0-15.0) % Eos % (Auto) (0.0-7.0) % Baso % (Auto) (0.0-1.5) % Neut # (Auto) (1.4-5.7) K/uL Lymph # (Auto) (0.6-2.4) K/uL Preble # (Auto) (0.0-0.8) K/uL Eos # (Auto) (0.0-0.7) K/uL Baso # (Auto) (0.0-0.1) K/uL Nucleated RBC % /100WBC Nucleated RBCs # K/uL Sodium 139 (136-145) mmol/L Potassium 3.0 L (3.5-5.1) mmol/L Chloride 107 (98-107) mmol/L Carbon Dioxide 24.4 (21.0-32.0) mmol/L BUN 20 H (7.0-18.0) mg/dL Creatinine 0.9 (0.6-1.0) mg/dL Est Cr Clr Drug Dosing 50.86 mL/min Estimated GFR (MDRD) > 60.0 ml/min Glucose 89 (74-106) mg/dL Hemoglobin A1c 5.9 (4.5-6.2) % Calcium 9.9 (8.5-10.1) mg/dL Magnesium 1.8 (1.8-2.4) mg/dL Total Bilirubin 0.4 (0.2-1.0) mg/dL AST 20 (15-37) IU/L ALT 27 (14-63) IU/L Alkaline Phosphatase 72 (46-116) U/L Troponin I < 0.050 (0.000-0.056) ng/mL Total Protein 6.8 (6.4-8.2) g/dL Albumin 3.7 (3.4-5.0) g/dL Globulin 3.1 (2.6-4.0) g/dL Albumin/Globulin Ratio 1.2 (0.9-1.6) Triglycerides (0-200) mg/dL Cholesterol (50-200) mg/dL LDL Cholesterol, Calc (60-180) mg/dL VLDL Cholesterol (5-55) mg/dL HDL Cholesterol (40-60) mg/dL Cholesterol/HDL Ratio (3.3-6.0) Urine Color Urine Appearance Urine pH (5.0-8.0) Ur Specific Ector (1.001-1.035) Urine Protein (NEGATIVE) mg/dL Urine Glucose (UA) (NEGATIVE) mg/dL Urine Ketones (NEGATIVE) mg/dL Urine Occult Blood (NEGATIVE) Urine Nitrite (NEGATIVE) Urine Bilirubin (NEGATIVE) Urine Urobilinogen (<2.0) EU/dL Ur Leukocyte Esterase (NEGATIVE) Urine RBC (0-2/HPF) Urine WBC (0-5/HPF) Ur Epithelial Cells (NONE-FEW) Urine Bacteria (NEGATIVE) 09/07/18 09/07/18 09/08/18 Range/Units 18:40 21:00 00:53 WBC (4.0-11.0) K/uL RBC (4.30-5.90) M/uL Hgb (12.0-16.0) g/dL Hct (36.0-46.0) % MCV (80.0-98.0) fL MCH (27.0-32.0) pg MCHC (31.0-37.0) g/dL RDW Std Deviation (28.0-62.0) fl RDW Coeff of Steven (11.0-15.0) % Plt Count (150-400) K/uL MPV (7.40-12.00) fL Neut % (Auto) (48.0-80.0) % Lymph % (Auto) (16.0-40.0) % Preble % (Auto) (0.0-15.0) % Eos % (Auto) (0.0-7.0) % Baso % (Auto) (0.0-1.5) % Neut # (Auto) (1.4-5.7) K/uL Lymph # (Auto) (0.6-2.4) K/uL Preble # (Auto) (0.0-0.8) K/uL Eos # (Auto) (0.0-0.7) K/uL Baso # (Auto) (0.0-0.1) K/uL Nucleated RBC % /100WBC Nucleated RBCs # K/uL Sodium (136-145) mmol/L Potassium (3.5-5.1) mmol/L Chloride (98-107) mmol/L Carbon Dioxide (21.0-32.0) mmol/L BUN (7.0-18.0) mg/dL Creatinine (0.6-1.0) mg/dL Est Cr Clr Drug Dosing mL/min Estimated GFR (MDRD) ml/min Glucose (74-106) mg/dL Hemoglobin A1c (4.5-6.2) % Calcium (8.5-10.1) mg/dL Magnesium (1.8-2.4) mg/dL Total Bilirubin (0.2-1.0) mg/dL AST (15-37) IU/L ALT (14-63) IU/L Alkaline Phosphatase (46-116) U/L Troponin I < 0.050 < 0.050 (0.000-0.056) ng/mL Total Protein (6.4-8.2) g/dL Albumin (3.4-5.0) g/dL Globulin (2.6-4.0) g/dL Albumin/Globulin Ratio (0.9-1.6) Triglycerides (0-200) mg/dL Cholesterol (50-200) mg/dL LDL Cholesterol, Calc (60-180) mg/dL VLDL Cholesterol (5-55) mg/dL HDL Cholesterol (40-60) mg/dL Cholesterol/HDL Ratio (3.3-6.0) Urine Color YELLOW Urine Appearance CLOUDY Urine pH 7.5 (5.0-8.0) Ur Specific Ector 1.020 (1.001-1.035) Urine Protein NEGATIVE (NEGATIVE) mg/dL Urine Glucose (UA) NEGATIVE (NEGATIVE) mg/dL Urine Ketones TRACE H (NEGATIVE) mg/dL Urine Occult Blood NEGATIVE (NEGATIVE) Urine Nitrite POSITIVE H (NEGATIVE) Urine Bilirubin NEGATIVE (NEGATIVE) Urine Urobilinogen 0.2 (<2.0) EU/dL Ur Leukocyte Esterase TRACE H (NEGATIVE) Urine RBC 0-2 (0-2/HPF) Urine WBC 13-16 (0-5/HPF) Ur Epithelial Cells OCCASIONAL (NONE-FEW) Urine Bacteria 2+ H (NEGATIVE) 09/08/18 09/08/18 Range/Units 05:35 05:35 WBC 4.71 (4.0-11.0) K/uL RBC 4.30 (4.30-5.90) M/uL Hgb 12.5 (12.0-16.0) g/dL Hct 39.6 (36.0-46.0) % MCV 92.1 (80.0-98.0) fL MCH 29.1 (27.0-32.0) pg MCHC 31.6 (31.0-37.0) g/dL RDW Std Deviation 47.1 (28.0-62.0) fl RDW Coeff of Steven 14 (11.0-15.0) % Plt Count 232 (150-400) K/uL MPV 11.10 (7.40-12.00) fL Neut % (Auto) 54.5 (48.0-80.0) % Lymph % (Auto) 32.1 (16.0-40.0) % [place] % (Auto) 8.1 (0.0-15.0) % Eos % (Auto) 4.7 (0.0-7.0) % Baso % (Auto) 0.6 (0.0-1.5) % Neut # (Auto) 2.6 (1.4-5.7) K/uL Lymph # (Auto) 1.5 (0.6-2.4) K/uL Preble # (Auto) 0.4 (0.0-0.8) K/uL Eos # (Auto) 0.2 (0.0-0.7) K/uL Baso # (Auto) 0.0 (0.0-0.1) K/uL Nucleated RBC % 0.0 /100WBC Nucleated RBCs # 0 K/uL Sodium 142 (136-145) mmol/L Potassium 3.9 (3.5-5.1) mmol/L Chloride 108 H (98-107) mmol/L Carbon Dioxide 27.3 (21.0-32.0) mmol/L BUN 19 H (7.0-18.0) mg/dL Creatinine 1.0 (0.6-1.0) mg/dL Est Cr Clr Drug Dosing 45.78 mL/min Estimated GFR (MDRD) 55.5 ml/min Glucose 84 (74-106) mg/dL Hemoglobin A1c (4.5-6.2) % Calcium 9.5 (8.5-10.1) mg/dL Magnesium (1.8-2.4) mg/dL Total Bilirubin (0.2-1.0) mg/dL AST (15-37) IU/L ALT (14-63) IU/L Alkaline Phosphatase (46-116) U/L Troponin I (0.000-0.056) ng/mL Total Protein (6.4-8.2) g/dL Albumin (3.4-5.0) g/dL Globulin (2.6-4.0) g/dL Albumin/Globulin Ratio (0.9-1.6) Triglycerides 153 (0-200) mg/dL Cholesterol 219 H (50-200) mg/dL LDL Cholesterol, Calc 121 (60-180) mg/dL VLDL Cholesterol 30 (5-55) mg/dL HDL Cholesterol 67 H (40-60) mg/dL Cholesterol/HDL Ratio 3.3 (3.3-6.0) Urine Color Urine Appearance Urine pH (5.0-8.0) Ur Specific Ector (1.001-1.035) Urine Protein (NEGATIVE) mg/dL Urine Glucose (UA) (NEGATIVE) mg/dL Urine Ketones (NEGATIVE) mg/dL Urine Occult Blood (NEGATIVE) Urine Nitrite (NEGATIVE) Urine Bilirubin (NEGATIVE) Urine Urobilinogen (<2.0) EU/dL Ur Leukocyte Esterase (NEGATIVE) Urine RBC (0-2/HPF) Urine WBC (0-5/HPF) Ur Epithelial Cells (NONE-FEW) Urine Bacteria (NEGATIVE) Med Orders - Current: Current Medications Discontinued Medications Acetaminophen (Tylenol) 650 mg PO Q4H PRN PRN Reason: Pain (Mild 1-3)/fever Last Admin: 09/08/18 04:00 Dose: 650 mg Albuterol/Ipratropium (Duoneb 3.0-0.5 Mg/3 Ml) 3 ml NEB Q4HRRT PRN PRN Reason: Shortness Of Breath/wheezing Amlodipine Besylate (Norvasc) 10 mg PO DAILY [facility] Last Admin: 09/08/18 09:39 Dose: 10 mg Chlorthalidone (Chlorthalidone) 50 mg PO DAILY [facility] Last Admin: 09/08/18 09:39 Dose: 50 mg Ciprofloxacin (Ciprofloxacin Hcl) 500 mg PO BID [facility] Stop: 09/13/18 09:00 Last Admin: 09/08/18 09:37 Dose: 500 mg Docusate Sodium (Colace) 100 mg PO BID PRN PRN Reason: Constipation Enoxaparin Sodium (Lovenox) 30 mg SUBCUT Q24H [facility] Last Admin: 09/07/18 16:24 Dose: 30 mg Isosorbide Mononitrate (Imdur) 30 mg PO DAILY [facility] Last Admin: 09/08/18 09:37 Dose: 30 mg Loperamide HCl (Imodium) 2 mg PO ONETIME ONE Stop: 09/07/18 18:46 Last Admin: 09/07/18 18:57 Dose: 2 mg Lorazepam (Ativan) 0.5 mg PO BID PRN PRN Reason: Anxiety Last Admin: 09/07/18 16:24 Dose: 0.5 mg Omeprazole (Omeprazole) 40 mg PO ACBREAKFAST [facility] Last Admin: 09/08/18 06:34 Dose: 40 mg Ondansetron HCl (Zofran) 4 mg IVPUSH Q6H PRN PRN Reason: Nausea/Vomiting Last Admin: 09/07/18 20:18 Dose: 4 mg Oxycodone HCl (Oxycodone) 5 mg PO Q4H PRN PRN Reason: Pain (moderate 4-6) Last Admin: 09/07/18 20:21 Dose: 5 mg Diclofenac [Voltaren (1% Gel]) 1 each TOP ASDIRECTED PRN PRN Reason: Pain Levocetirizine 5mg 1 each PO BEDTIME PRN PRN Reason: Allergies Verapamil Er 300mg 1 each PO DAILY [facility] Last Admin: 09/08/18 09:41 Dose: Not Given Potassium Chloride (Klor-Con M20) 40 meq PO ONETIME ONE Stop: 09/07/18 14:21 Last Admin: 09/07/18 14:43 Dose: 40 meq Potassium Chloride (Potassium Chloride) 40 meq PO ONETIME ONE Stop: 09/07/18 17:31 Last Admin: 09/07/18 17:19 Dose: 40 meq Sodium Chloride (Saline Flush) 10 ml FLUSH ASDIRECTED PRN PRN Reason: Keep Vein Open Last Admin: 09/07/18 14:42 Dose: 10 ml Sodium Chloride (Saline Flush) 2.5 ml FLUSH ASDIRECTED PRN PRN Reason: Keep Vein Open Last Admin: 09/07/18 14:43 Dose: 2.5 ml Temazepam (Restoril) 15 mg PO BEDTIME PRN PRN Reason: Sleep
--- NOTE | 2018-09-13 14:48 | ECHO ---
EXAM DATE: 09/07/18 PATIENT'S AGE: 67 The echocardiogram report can be seen in this patient's EMR (Electronic Medical Record) in the Reports section. The report has also been scanned into [employer]. [facility]
== END 2018-09-08 10:50 | disposition home or self-care (01) ==
LOC: MW.ED 13:24 → MW.MS 14:49
PROVIDERS: ADMIT Internal Medicine; ATTEND Internal Medicine
DX: R07.89 Other chest pain (principal); R06.00 Dyspnea, unspecified; R60.0 Localized edema; E87.6 Hypokalemia; D64.9 Anemia, unspecified; N39.0 Urinary tract infection, site not specified; F43.10 Post-traumatic stress disorder, unspecified; I10 Essential (primary) hypertension; F41.9 Anxiety disorder, unspecified; K21.9 Gastro-esophageal reflux disease without esophagitis; Z79.899 Other long term (current) drug therapy; Z98.890 Other specified postprocedural states
CPT/HCPCS: 36415; 71045; 80048; 80053; 80061; 81001; 83036; 83735; 84484; 85025; 93005; 93306; 99285; A9270; J1650; J2405; 96372; 96374; 99284; G0378